=== PATIENT | male | born 1955 | race Caucasian/White ===

== ENCOUNTER 2016-09-27 11:39 | Emergency (ER) | payer OTHER ==
[~2016-09-27] VITALS: Ht 185.4 cm; Wt 200.0 kg
[~2016-09-27 11:39] MED LIST: ACTOS45 MG PO; ALLOPURINOL300 MG PO; COUMADIN,JANTO7.5 MG PO; Cardizem CD,Cartia XT,Tiazac PO; Coumadin,Jantoven PO; DARVOCET-N 1001 EAC1 PO; DIGOXIN250 MCG PO; DILTIAZEM 24HR360 M1 PO; DIOVAN320 MG PO; EFFEXOR XR150 MG PO; ENALAPRIL MALEA10 MG PO; ENALAPRIL MALEA20 M1 PO; FLEXERIL10 MG PO; FLUTICASONE PRO16 GM BOTH NARES; FUROSEMIDE40 MG PO; GABAPENTIN600 MG PO; GLIPIZIDE ER2.5 MG PO; GLIPIZIDE XL5 MG PO; HYDROCHLOROTHIA25 MG PO; Hydrodiuril,Oretic,E PO; LANOXIN,DIGIT0.25 MG PO; LOPRESSOR100 M1; LOPRESSOR50 MG PO; LOVENOX150 MG/1 M SC; LYRICA100 MG PO; LYRICA150 MG PO; Lopressor PO; METFORMIN HCL1000 MG PO; METOPROLOL TAR100 MG PO; MORPHINE SULFAT15 M1 PO; MORPHINE SULFAT15 MG PO; MS Contin,Oramorph S PO; NAPROSYN500 MG PO; OMEPRAZOLE20 M1 PO; OXYCODONE HCL10 MG PO; PACERONE200 M1 PO; PRAVASTATIN SOD40 MG; RANITIDINE HCL150 MG PO; REQUIP1 MG PO; ROPINIROLE HCL1 MG PO; SPIRIVA1 INHALATI IH; SUPARTZ IU; TAZTIA XT180 M1 PO; TAZTIA XT360 MG; TRAMADOL HCL50 MG PO; TRAUMEEL; Ultram PO; VENLAFAXINE ER PO; VENLAFAXINE HC150 M1 PO; VENLAFAXINE HCL75 M3 PO; VITAMIN D1000 UNIT PO; VITAMIN D2000 INTUN PO; VOLTAREN 1% GE100 GM TP; Vasotec PO; WARFARIN SODIU7.5 MG; WARFARIN SODIU7.5 MG PO; XOPENEX HF200 INHALA IH; XOPENEX0.31 MG/3 IH; ZYLOPRIM150 MG PO; oxyCODONE PO
[2016-09-27 12:14] LABS: EOSINOPHIL (%) 1.8 % (0-5); EOSINOPHIL COUNT 0.1 K/uL (0-0.3); HEMATOCRIT 37.4 % (38.0-50.0); IMMATURE GRANULOCYTE (%) 0.4 % (0.0-0.7); INSTRUMENT ABS NEUTROPHIL CT 4.8 K/uL; LYMPHOCYTE COUNT 2.1 K/uL (1.0-2.8); MCH 29.4 PG (29.0-34.0); MCHC 31.3 G/DL (30.0-36.0); MEAN PLAT.VOLUME 9.3 uM^3 (9.0-12.4); MONOCYTE (%) 8.5 % (3-12); MONOCYTE COUNT 0.7 K/uL (0-0.8); NEUTROPHIL (%) 61.7 % (45-76); NEUTROPHIL COUNT 4.8 K/uL (1.8-6.4); PLATELET COUNT 121 K/uL (156-360); RBC DIS.WIDTH-CV 14.8 % (11.8-14.6); RBC DIS.WIDTH-SD 51.3 % (39-53); RED BLOOD COUNT 3.98 M/uL (4.00-5.50); WHITE BLOOD COUNT 7.8 K/uL (4.1-10.2)
[2016-09-27 12:19] LABS: POINT-OF-CARE METER ID UU14100415
[2016-09-27 12:23] LABS: CHLORIDE 103 mEq/L (99-109); POTASSIUM 4.7 mEq/L (3.7-5.4); SODIUM 139 mEq/L (136-147)
[2016-09-27 12:24] LABS: GLUCOSE 113 mg/dL (70-99)
[2016-09-27 12:25] LABS: INTER. NORMALIZED RATIO 1.1; PROTHROMBIN TIME 11.5 (9.2-11.2)
[2016-09-27 12:26] LABS: ANION GAP 10 MEQ/L (2-14)
[2016-09-27 12:28] LABS: GFR ESTIMATE (CALCULATED) > 59 mL/min/
[2016-09-27 12:29] LABS: UREA NITROGEN (BUN) 26 mg/dL (9-23)
[2016-09-27 12:35] LABS: TROP-I INTERPRETATION NEGATIVE; TROPONIN-I 0.02 ng/mL (0.0-0.30)
[2016-09-27 16:38] LABS: TROP-I INTERPRETATION NEGATIVE; TROPONIN-I 0.02 ng/mL (0.0-0.30)
[2016-09-27 17:41] VITALS: BP 131/76
== END 2016-09-27 17:42 | disposition home or self-care (01) ==
LOC: EME 11:39
PROVIDERS: Emergency Medicine
DX: R53.1 Weakness (principal); I48.91 Unspecified atrial fibrillation; E11.9 Type 2 diabetes mellitus without complications; M79.7 Fibromyalgia; J44.9 Chronic obstructive pulmonary disease, unspecified; G89.29 Other chronic pain; E78.5 Hyperlipidemia, unspecified; I10 Essential (primary) hypertension; K21.9 Gastro-esophageal reflux disease without esophagitis; Z87.442 Personal history of urinary calculi; Z87.891 Personal history of nicotine dependence
CPT/HCPCS: 71010; 80048; 80162; 82948; 84484; 85025; 85610; 85730; 93005; 99281; 99285; J7030

== ENCOUNTER 2016-11-23 13:41 | Inpatient (IN) | payer OTHER ==
[~2016-11-23] VITALS: Ht 185.4 cm; Wt 156.8 kg
[2016-11-23 14:25] LABS: HEMATOCRIT ND % (38.0-50.0); MCV ND FL (86-99); RED BLOOD COUNT ND M/uL (4.00-5.50); WHITE BLOOD COUNT ND K/uL (4.1-10.2)
[2016-11-23 14:26] LABS: MCH ND PG (29.0-34.0); MCHC ND G/DL (30.0-36.0); MEAN PLAT.VOLUME ND uM^3 (9.0-12.4); NRBC (%) ND /100 WBC (0-0); PLATELET COUNT ND K/uL (156-360); RBC DIS.WIDTH-CV ND % (11.8-14.6); RBC DIS.WIDTH-SD ND % (39-53)
[2016-11-23 14:28] LABS: CHLORIDE 95 mEq/L (99-109); POTASSIUM 5.2 mEq/L (3.7-5.4); SODIUM 131 mEq/L (136-147)
[2016-11-23 14:30] LABS: GLUCOSE 125 mg/dL (70-99)
[2016-11-23 14:32] LABS: ANION GAP 6 MEQ/L (2-14)
[2016-11-23 14:34] LABS: GFR ESTIMATE (CALCULATED) > 59 mL/min/
[2016-11-23 14:35] LABS: UREA NITROGEN (BUN) 21 mg/dL (9-23)
[2016-11-23 14:41] LABS: TROP-I INTERPRETATION NEGATIVE; TROPONIN-I 0.02 ng/mL (0.0-0.30)
[2016-11-23 16:08] LABS: HEMATOCRIT 38.8 % (38.0-50.0); MCH 28.8 PG (29.0-34.0); MCHC 30.9 G/DL (30.0-36.0); MEAN PLAT.VOLUME 9.6 uM^3 (9.0-12.4); PLATELET COUNT 87 K/uL (156-360); RBC DIS.WIDTH-CV 14.6 % (11.8-14.6); RBC DIS.WIDTH-SD 49.9 % (39-53); RED BLOOD COUNT 4.17 M/uL (4.00-5.50); WHITE BLOOD COUNT 6.7 K/uL (4.1-10.2)
[2016-11-23 16:22] LABS: INTER. NORMALIZED RATIO 1.2; PROTHROMBIN TIME 11.8 (9.2-11.2); PTT 29.4 (25-32)
[2016-11-23 17:01] LABS: BASE EXCESS 7.1 mEq/L (-3 to +3); METHEMOGLOBIN 0.6 % (0-1.5); PO2 77 mm Hg (80-100); pH 7.31 (7.35-7.45)
[2016-11-23 17:02] LABS: BICARBONATE 35.7 mEq/L (22-26); PCO2 71 mm Hg (35-45); SITE LR
[2016-11-23] MEDS ORDERED: LYRICA75 MG PO (17:02)
[2016-11-23 17:03] LABS: COMMENTS - BLOOD GASES A+C+; DEVICE NC; O2 FLOW 4 L/MIN
[2016-11-23] MEDS ORDERED: CARDIZEM CD240 MG PO (17:04)
[2016-11-23] MEDS ORDERED: CARDIZEM CD120 M1 PO (17:04)
[2016-11-23] MEDS ORDERED: FLONASE16 G1 BOTH NARES (17:05)
[2016-11-23] MEDS ORDERED: METOPROLOL TART50 MG PO ×2 (17:06→17:07)
[2016-11-23] MEDS ORDERED: VENLAFAXINE HCL75 M3 PO (17:08)
[2016-11-23] MEDS ORDERED: ELIQUIS5 MG PO (17:08)
[2016-11-23] MEDS ORDERED: VITAMIN D2000 UNI1 PO (17:09)
[2016-11-23] MEDS ORDERED: OXYCODONE HCL15 MG PO (17:09)
[2016-11-23] MEDS ORDERED: TIZANIDINE HCL4 MG PO (17:13)
[2016-11-23 20:22] VITALS: BP 146/76
[2016-11-23 23:46] VITALS: BP 177/88
[2016-11-24 08:12] VITALS: BP 184/76
[2016-11-24 09:21] LABS: HEMATOCRIT 37.6 % (38.0-50.0); MCH 29.9 PG (29.0-34.0); MCHC 32.7 G/DL (30.0-36.0); MCV 91.5 FL (86-99); MEAN PLAT.VOLUME 10.6 uM^3 (9.0-12.4); PLATELET COUNT 107 K/uL (156-360); RBC DIS.WIDTH-CV 14.3 % (11.8-14.6); RBC DIS.WIDTH-SD 48.1 % (39-53); RED BLOOD COUNT 4.11 M/uL (4.00-5.50); WHITE BLOOD COUNT 4.4 K/uL (4.1-10.2)
[2016-11-24 09:34] LABS: ANION GAP 8 MEQ/L (2-14); CHLORIDE 95 MEQ/L (99-109); GFR ESTIMATE (CALCULATED) > 59 mL/min/; GLUCOSE 195 mg/dL (70-99); POTASSIUM 4.5 MEQ/L (3.7-5.4); SAMPLE HEMOLYSIS CHECK 0; SAMPLE ICTERIC CHECK 0; SAMPLE LIPEMIA CHECK 0; SODIUM 134 MEQ/L (136-147); UREA NITROGEN (BUN) 24 mg/dL (9-23)
[2016-11-24 12:17] VITALS: BP 149/90
[2016-11-24 14:38] LABS: Estimated Average Glucose 151 mg/dL (70-123)
[2016-11-24 14:54] LABS: HEMOGLOBIN A1c (GLYCOHEMOGLOB) 6.9 % HGB (Below 5.7)
[2016-11-24 15:48] VITALS: BP 169/79
[2016-11-24 19:46] VITALS: BP 141/91
[2016-11-25 00:17] VITALS: BP 136/79
[2016-11-25 03:56] VITALS: BP 132/83
[2016-11-25 07:54] VITALS: BP 157/78
[2016-11-25 07:54] LABS: POINT-OF-CARE METER ID UU13113717
[2016-11-25 11:18] VITALS: BP 148/74
[2016-11-25 15:52] VITALS: BP 176/78
[2016-11-26 00:04] VITALS: BP 130/60
[2016-11-26 07:43] LABS: HEMATOCRIT 37.6 % (38.0-50.0); MCH 29.8 PG (29.0-34.0); MCHC 32.4 G/DL (30.0-36.0); MCV 91.7 FL (86-99); MEAN PLAT.VOLUME 11.6 uM^3 (9.0-12.4); RBC DIS.WIDTH-CV 14.6 % (11.8-14.6); WHITE BLOOD COUNT 9.2 K/uL (4.1-10.2)
[2016-11-26 07:45] LABS: PLATELET COUNT 142 K/uL (156-360)
[2016-11-26 07:51] VITALS: BP 145/72
[2016-11-26 07:52] LABS: ANION GAP 8 MEQ/L (2-14); CHLORIDE 95 MEQ/L (99-109); GFR ESTIMATE (CALCULATED) > 59 mL/min/; GLUCOSE 251 mg/dL (70-99); POTASSIUM 4.9 MEQ/L (3.7-5.4); SAMPLE HEMOLYSIS CHECK 0; SAMPLE ICTERIC CHECK 0; SAMPLE LIPEMIA CHECK 0; SODIUM 134 MEQ/L (136-147)
[2016-11-26 07:54] LABS: UREA NITROGEN (BUN) 41 mg/dL (9-23)
[2016-11-26] MEDS ORDERED: ADVAIR HFA120 INHALA IH (09:40)
[2016-11-26] MEDS ORDERED: PREDNISONE10 MG PO (09:42)
== END 2016-11-26 11:49 | disposition home or self-care (01) | DRG 189 ==
LOC: EME 13:41 → 5SOUTH 16:17 → EDOF 16:17 → 5SOUTH 20:06
PROVIDERS: Emergency Medicine; Hospitalist; Internal Medicine; Nurse Practitioner Adult Health; Physician Assistant Medical
DX: J96.21 Acute and chronic respiratory failure with hypoxia (principal); J96.22 Acute and chronic respiratory failure with hypercapnia; J44.0 Chronic obstructive pulmonary disease with (acute) lower respiratory infection; J20.9 Acute bronchitis, unspecified; J44.1 Chronic obstructive pulmonary disease with (acute) exacerbation; Z99.81 Dependence on supplemental oxygen; I11.0 Hypertensive heart disease with heart failure; I50.22 Chronic systolic (congestive) heart failure; I25.5 Ischemic cardiomyopathy; I42.0 Dilated cardiomyopathy; I48.2 Chronic atrial fibrillation; E11.65 Type 2 diabetes mellitus with hyperglycemia; G47.33 Obstructive sleep apnea (adult) (pediatric); G89.29 Other chronic pain; M79.7 Fibromyalgia; M10.9 Gout, unspecified; K21.9 Gastro-esophageal reflux disease without esophagitis; E66.01 Morbid (severe) obesity due to excess calories; Z68.43 Body mass index [BMI] 50.0-59.9, adult; E78.5 Hyperlipidemia, unspecified; F32.9 Major depressive disorder, single episode, unspecified; Z91.19 Patient's noncompliance with other medical treatment and regimen; Z79.01 Long term (current) use of anticoagulants; Z87.891 Personal history of nicotine dependence; Z79.4 Long term (current) use of insulin
CPT/HCPCS: 36600; 71010; 80048; 82803; 82948; 83036; 84484; 85014; 85018; 85027; 85610; 85730; 93005; 94640; 94640 76; 94644; 94799; 99202; 99281; 99285; J1815; J1940; J2920; J2930; J7512

== ENCOUNTER 2017-01-17 19:03 | Inpatient (IN) | payer OTHER ==
[~2017-01-17] VITALS: Ht 182.9 cm; Wt 200.3 kg
[~2017-01-17 19:03] MED LIST changes: +ADVAIR HFA120 INHALA IH; +CARDIZEM CD120 M1 PO; +CARDIZEM CD240 MG PO; +ELIQUIS5 MG PO; +FLONASE16 G1 BOTH NARES; +LYRICA75 MG PO; +METOPROLOL TART50 MG PO; +PREDNISONE10 MG PO; +TIZANIDINE HCL4 MG PO; +VITAMIN D2000 UNI1 PO
[2017-01-17 20:44] LABS: HEMATOCRIT 36.7 % (38.0-50.0); MCH 28.3 PG (29.0-34.0); MCHC 31.3 G/DL (30.0-36.0); MCV 90.4 FL (86-99); MEAN PLAT.VOLUME 9.6 uM^3 (9.0-12.4); PLATELET COUNT 117 K/uL (156-360); RBC DIS.WIDTH-CV 14.6 % (11.8-14.6); RBC DIS.WIDTH-SD 48.7 % (39-53); RED BLOOD COUNT 4.06 M/uL (4.00-5.50); WHITE BLOOD COUNT 5.9 K/uL (4.1-10.2)
[2017-01-17 20:55] LABS: CARBON DIOXIDE (BICARBONATE) 39.3 MEQ/L (20-31); CHLORIDE 101 mEq/L (99-109); POTASSIUM 4.3 mEq/L (3.7-5.4); SODIUM 142 mEq/L (136-147)
[2017-01-17 20:57] LABS: GLUCOSE 113 mg/dL (70-99)
[2017-01-17 20:58] LABS: ANION GAP 8 MEQ/L (2-14)
[2017-01-17 21:01] LABS: GFR ESTIMATE (CALCULATED) > 59 mL/min/
[2017-01-17 21:02] LABS: UREA NITROGEN (BUN) 16 mg/dL (9-23)
[2017-01-17 21:07] LABS: TROP-I INTERPRETATION NEGATIVE; TROPONIN-I 0.03 ng/mL (0.0-0.30)
[2017-01-17] MEDS ORDERED: AMARYL2 MG PO (22:22)
[2017-01-17] MEDS ORDERED: MIRTAZAPINE7.5 MG PO (22:23)
[2017-01-17] MEDS ORDERED: JANUVIA100 MG PO (22:24)
[2017-01-17] MEDS ORDERED: DUONEB 2.5-0.5 M3 ML AEROSOL (22:25)
[2017-01-17] MEDS ORDERED: LANTUS 3 M100 UNITS1 SC ×2 (22:27)
[2017-01-17] MEDS ORDERED: PRAVACHOL20 MG PO (22:28)
[2017-01-17] MEDS ORDERED: BENGAY GREASEL113 GM TP (22:30)
[2017-01-17 23:30] VITALS: BP 166/83
[2017-01-17 23:39] LABS: DIGOXIN 0.6 ng/mL (0.8-2.0)
[2017-01-18] VITALS (7 sets, daily range): BP systolic 97–144; BP diastolic 55–91
[2017-01-18 04:22] LABS: EOSINOPHIL (%) 1.9 % (0-5); EOSINOPHIL COUNT 0.1 K/uL (0-0.3); HEMATOCRIT 36.3 % (38.0-50.0); IMMATURE GRANULOCYTE (%) 0.6 % (0.0-0.7); INSTRUMENT ABS NEUTROPHIL CT 3.6 K/uL; LYMPHOCYTE COUNT 1.7 K/uL (1.0-2.8); MCH 28.2 PG (29.0-34.0); MCHC 30.6 G/DL (30.0-36.0); MCV 92.1 FL (86-99); MEAN PLAT.VOLUME 9.9 uM^3 (9.0-12.4); MONOCYTE (%) 12.1 % (3-12); MONOCYTE COUNT 0.8 K/uL (0-0.8); NEUTROPHIL (%) 58.2 % (45-76); NEUTROPHIL COUNT 3.6 K/uL (1.8-6.4); PLATELET COUNT 116 K/uL (156-360); RBC DIS.WIDTH-CV 14.7 % (11.8-14.6); RBC DIS.WIDTH-SD 49.8 % (39-53); RED BLOOD COUNT 3.94 M/uL (4.00-5.50); WHITE BLOOD COUNT 6.2 K/uL (4.1-10.2)
[2017-01-18 04:43] LABS: CHLORIDE 102 mEq/L (99-109); POTASSIUM 4.7 mEq/L (3.7-5.4); SODIUM 143 mEq/L (136-147)
[2017-01-18 04:45] LABS: GLUCOSE 107 mg/dL (70-99)
[2017-01-18 04:46] LABS: ANION GAP 6 MEQ/L (2-14)
[2017-01-18 04:47] LABS: TOTAL BILIRUBIN 0.5 mg/dL (0.0-1.0)
[2017-01-18 04:48] LABS: ALKALINE PHOSPHATASE 111 IU/L (3-129)
[2017-01-18 04:49] LABS: GFR ESTIMATE (CALCULATED) > 59 mL/min/; TROP-I INTERPRETATION NEGATIVE; TROPONIN-I < 0.01 ng/mL (0.0-0.30)
[2017-01-18 04:50] LABS: UREA NITROGEN (BUN) 16 mg/dL (9-23)
[2017-01-18 07:35] LABS: POINT-OF-CARE METER ID UU13113803
[2017-01-18 10:32] LABS: TROP-I INTERPRETATION NEGATIVE; TROPONIN-I < 0.01 ng/mL (0.0-0.30)
[2017-01-18 11:17] LABS: POINT-OF-CARE METER ID UU13113803
[2017-01-18 16:36] LABS: POINT-OF-CARE METER ID UU13113803
[2017-01-19 04:40] VITALS: BP 117/62
[2017-01-19 05:44] LABS: EOSINOPHIL (%) 3.8 % (0-5); EOSINOPHIL COUNT 0.2 K/uL (0-0.3); HEMATOCRIT 37.1 % (38.0-50.0); IMMATURE GRANULOCYTE (%) 0.3 % (0.0-0.7); INSTRUMENT ABS NEUTROPHIL CT 3.8 K/uL; LYMPHOCYTE COUNT 1.7 K/uL (1.0-2.8); MCH 28.2 PG (29.0-34.0); MCHC 30.7 G/DL (30.0-36.0); MCV 91.8 FL (86-99); MEAN PLAT.VOLUME 9.6 uM^3 (9.0-12.4); MONOCYTE (%) 8.6 % (3-12); MONOCYTE COUNT 0.6 K/uL (0-0.8); NEUTROPHIL (%) 59.4 % (45-76); NEUTROPHIL COUNT 3.8 K/uL (1.8-6.4); PLATELET COUNT 121 K/uL (156-360); RBC DIS.WIDTH-CV 14.6 % (11.8-14.6); RBC DIS.WIDTH-SD 49.1 % (39-53); RED BLOOD COUNT 4.04 M/uL (4.00-5.50); WHITE BLOOD COUNT 6.4 K/uL (4.1-10.2)
[2017-01-19 06:05] LABS: ALKALINE PHOSPHATASE 94 IU/L (3-129); ANION GAP 5 MEQ/L (2-14); CHLORIDE 96 MEQ/L (99-109); GFR ESTIMATE (CALCULATED) > 59 mL/min/; GLUCOSE 89 mg/dL (70-99); POTASSIUM 4.5 MEQ/L (3.7-5.4); SAMPLE HEMOLYSIS CHECK 1; SAMPLE ICTERIC CHECK 0; SAMPLE LIPEMIA CHECK 0; SODIUM 141 MEQ/L (136-147); TOTAL BILIRUBIN 0.6 MG/DL (0.0-1.0); UREA NITROGEN (BUN) 18 mg/dL (9-23)
[2017-01-19 07:05] LABS: Estimated Average Glucose 160 mg/dL (70-123); HEMOGLOBIN A1c (GLYCOHEMOGLOB) 7.2 % HGB (Below 5.7)
[2017-01-19 07:47] LABS: POINT-OF-CARE METER ID UU13113698
[2017-01-19 08:45] VITALS: BP 143/91
[2017-01-19 15:23] VITALS: BP 102/59
[2017-01-19 16:34] LABS: POINT-OF-CARE METER ID UU13113781
[2017-01-19 19:20] VITALS: BP 156/89
[2017-01-19 20:50] LABS: POINT-OF-CARE METER ID UU13113781
[2017-01-20 00:23] VITALS: BP 121/70
[2017-01-20 06:55] LABS: EOSINOPHIL (%) 0.5 % (0-5); HEMATOCRIT 36.6 % (38.0-50.0); IMMATURE GRANULOCYTE (%) 0.4 % (0.0-0.7); INSTRUMENT ABS NEUTROPHIL CT 3.8 K/uL; LYMPHOCYTE COUNT 1.3 K/uL (1.0-2.8); MCHC 31.4 G/DL (30.0-36.0); MCV 89.3 FL (86-99); MEAN PLAT.VOLUME 9.7 uM^3 (9.0-12.4); MONOCYTE (%) 7.2 % (3-12); MONOCYTE COUNT 0.4 K/uL (0-0.8); NEUTROPHIL (%) 67.8 % (45-76); NEUTROPHIL COUNT 3.8 K/uL (1.8-6.4); PLATELET COUNT 124 K/uL (156-360); RBC DIS.WIDTH-CV 14.3 % (11.8-14.6); RBC DIS.WIDTH-SD 46.3 % (39-53); WHITE BLOOD COUNT 5.6 K/uL (4.1-10.2)
[2017-01-20 07:18] LABS: ALKALINE PHOSPHATASE 94 IU/L (3-129); ANION GAP 3 MEQ/L (2-14); CHLORIDE 96 MEQ/L (99-109); GFR ESTIMATE (CALCULATED) > 59 mL/min/; GLUCOSE 128 mg/dL (70-99); POTASSIUM 4.3 MEQ/L (3.7-5.4); SAMPLE HEMOLYSIS CHECK 0; SAMPLE ICTERIC CHECK 0; SAMPLE LIPEMIA CHECK 0; SODIUM 139 MEQ/L (136-147); TOTAL BILIRUBIN 0.6 MG/DL (0.0-1.0); UREA NITROGEN (BUN) 19 mg/dL (9-23)
[2017-01-20 07:20] VITALS: BP 140/84
[2017-01-20 12:32] VITALS: BP 136/87
[2017-01-20 16:22] VITALS: BP 164/92
[2017-01-20 23:44] VITALS: BP 111/56
[2017-01-21 05:42] VITALS: BP 127/75
[2017-01-21 07:10] VITALS: BP 150/71
[2017-01-21 07:16] LABS: EOSINOPHIL (%) 1.1 % (0-5); EOSINOPHIL COUNT 0.1 K/uL (0-0.3); HEMATOCRIT 36.5 % (38.0-50.0); IMMATURE GRANULOCYTE (%) 0.2 % (0.0-0.7); INSTRUMENT ABS NEUTROPHIL CT 3.3 K/uL; LYMPHOCYTE COUNT 1.7 K/uL (1.0-2.8); MCH 28.1 PG (29.0-34.0); MCHC 31.2 G/DL (30.0-36.0); MCV 89.9 FL (86-99); MEAN PLAT.VOLUME 9.5 uM^3 (9.0-12.4); MONOCYTE (%) 7.4 % (3-12); MONOCYTE COUNT 0.4 K/uL (0-0.8); NEUTROPHIL (%) 60.1 % (45-76); NEUTROPHIL COUNT 3.3 K/uL (1.8-6.4); PLATELET COUNT 115 K/uL (156-360); RBC DIS.WIDTH-CV 14.3 % (11.8-14.6); RED BLOOD COUNT 4.06 M/uL (4.00-5.50); WHITE BLOOD COUNT 5.4 K/uL (4.1-10.2)
[2017-01-21 07:48] LABS: ANION GAP 3 MEQ/L (2-14); CHLORIDE 99 MEQ/L (99-109); GFR ESTIMATE (CALCULATED) > 59 mL/min/; GLUCOSE 86 mg/dL (70-99); POTASSIUM 4.4 MEQ/L (3.7-5.4); SAMPLE HEMOLYSIS CHECK 0; SAMPLE ICTERIC CHECK 0; SAMPLE LIPEMIA CHECK 0; SODIUM 141 MEQ/L (136-147); UREA NITROGEN (BUN) 22 mg/dL (9-23)
[2017-01-21] MEDS ORDERED: CEFTIN500 MG PO (10:54)
[2017-01-21] MEDS ORDERED: PREDNISONE10 MG PO (10:54)
[2017-01-21 11:55] VITALS: BP 156/74
[2017-01-21 15:03] VITALS: BP 164/90
[2017-01-21 16:16] VITALS: BP 152/80
== END 2017-01-21 16:59 | disposition home or self-care (01) | DRG 190 ==
LOC: EME 19:03 → EDOF 22:14 → 4EAST 22:14 → ENRESERV 22:17 → 4EAST 23:14 → ENPENDDIS 01-21 → 4EAST 01-21 16:59
PROVIDERS: Emergency Medicine; Hospitalist; Internal Medicine
DX: J44.0 Chronic obstructive pulmonary disease with (acute) lower respiratory infection (principal); J18.9 Pneumonia, unspecified organism; J44.1 Chronic obstructive pulmonary disease with (acute) exacerbation; J96.11 Chronic respiratory failure with hypoxia; D69.6 Thrombocytopenia, unspecified; I11.0 Hypertensive heart disease with heart failure; I50.9 Heart failure, unspecified; D64.9 Anemia, unspecified; E11.9 Type 2 diabetes mellitus without complications; E78.5 Hyperlipidemia, unspecified; G47.33 Obstructive sleep apnea (adult) (pediatric); I25.10 Atherosclerotic heart disease of native coronary artery without angina pectoris; I48.2 Chronic atrial fibrillation; I48.92 Unspecified atrial flutter; J06.9 Acute upper respiratory infection, unspecified; K21.9 Gastro-esophageal reflux disease without esophagitis; M10.9 Gout, unspecified; M79.7 Fibromyalgia; F32.9 Major depressive disorder, single episode, unspecified; I45.10 Unspecified right bundle-branch block; E66.01 Morbid (severe) obesity due to excess calories; Z79.4 Long term (current) use of insulin; Z79.01 Long term (current) use of anticoagulants; I25.2 Old myocardial infarction; Z87.891 Personal history of nicotine dependence; Z99.81 Dependence on supplemental oxygen; Z68.31 Body mass index [BMI] 31.0-31.9, adult
CPT/HCPCS: 71010; 71020; 80048; 80053; 80162; 82803; 82948; 83036; 83605; 83880; 84484; 85025; 85027; 87040; 87070; 87205; 87449; 93005; 93306; 94640; 94640 76; 94799; 99202; 99281; 99285; J0456; J0696; J1815; J1940; J1956; J7050; J7512

== ENCOUNTER 2017-03-14 14:10 | Inpatient (IN) | payer OTHER ==
[~2017-03-14] VITALS: Ht 185.4 cm; Wt 264.7 kg
[~2017-03-14 14:10] MED LIST changes: +AMARYL2 MG PO; +BENGAY GREASEL113 GM TP; +CEFTIN500 MG PO; +DUONEB 2.5-0.5 M3 ML AEROSOL; +JANUVIA100 MG PO; +LANTUS 3 M100 UNITS1 SC; +MIRTAZAPINE7.5 MG PO; +PRAVACHOL20 MG PO
[2017-03-14 15:06] LABS: HEMATOCRIT 36.6 % (38.0-50.0); MCH 27.8 PG (29.0-34.0); MCHC 31.1 G/DL (30.0-36.0); MCV 89.3 FL (86-99); MEAN PLAT.VOLUME 9.5 uM^3 (9.0-12.4); PLATELET COUNT 109 K/uL (156-360); RBC DIS.WIDTH-CV 15.6 % (11.8-14.6); RBC DIS.WIDTH-SD 50.7 % (39-53)
[2017-03-14 15:15] LABS: CHLORIDE 97 mEq/L (99-109); POTASSIUM 4.8 mEq/L (3.7-5.4); SODIUM 136 mEq/L (136-147)
[2017-03-14 15:16] LABS: GLUCOSE 184 mg/dL (70-99)
[2017-03-14 15:18] LABS: ANION GAP 7 MEQ/L (2-14)
[2017-03-14 15:20] LABS: GFR ESTIMATE (CALCULATED) 55 mL/min/
[2017-03-14 15:21] LABS: UREA NITROGEN (BUN) 18 mg/dL (9-23)
[2017-03-14 15:26] LABS: TROP-I INTERPRETATION NEGATIVE; TROPONIN-I 0.04 ng/mL (0.0-0.30)
[2017-03-14 18:55] LABS: BASE EXCESS 8.9 mEq/L (-3 to +3); BICARBONATE 36.7 mEq/L (22-26); CARBOXY HGB 2.6 % (0-5); COMMENTS - BLOOD GASES C+; PCO2 65 mm Hg (35-45); PO2 56 mm Hg (80-100); SITE RR; pH 7.36 (7.35-7.45)
[2017-03-14 18:56] LABS: DEVICE NC; O2 FLOW 5 L/MIN; TOTAL RESP RATE 22 resp/min
[2017-03-14 19:58] LABS: TOTAL BILIRUBIN 0.8 mg/dL (0.0-1.0)
[2017-03-14 19:59] LABS: ALKALINE PHOSPHATASE 104 IU/L (3-129)
[2017-03-14 20:01] LABS: DIRECT BILIRUBIN 0.4 mg/dL (0.0-0.3)
[2017-03-14 20:02] LABS: DIGOXIN 1.8 ng/mL (0.8-2.0)
[2017-03-14] MEDS ORDERED: ADVAIR HFA120 INHALA IH (20:34)
[2017-03-14 21:15] VITALS: BP 143/77
[2017-03-14 21:50] LABS: POINT-OF-CARE METER ID UU14314088
[2017-03-14 22:38] LABS: ADD MIUA? YES; BILIRUBIN NEGATIVE; BLOOD SMALL; COLOR STRAW ((YELLOW)); GLUCOSE (STRIP) NEGATIVE; KETONES NEGATIVE; LEUKOCYTES NEGATIVE; NITRITE NEGATIVE; PROTEIN (STRIP) NEGATIVE; SPECIFIC GRAVITY 1.004 (1.000-1.030); UROBILINOGEN 0.2 MG/DL (0.2-1.0)
[2017-03-14 22:44] LABS: BACTERIA RARE /HPF; EPITHELIAL CELLS RARE /HPF; MUCUS NONE SEEN /LPF; UCUL ADDED? NO; WHITE BLOOD CELLS 0-5 /HPF (0-5)
[2017-03-14 23:28] VITALS: BP 137/63
[2017-03-14 23:37] VITALS: BP 137/63
[2017-03-15] VITALS (7 sets, daily range): BP systolic 130–211; BP diastolic 58–88
[2017-03-15 00:44] LABS: POINT-OF-CARE METER ID UU14314088
[2017-03-15 00:56] LABS: BASE EXCESS 11.7 mEq/L (-3 to +3); BICARBONATE 39.3 mEq/L (22-26); CARBOXY HGB 2.4 % (0-5); COMMENTS - BLOOD GASES C+A+; DEVICE HFNC; METHEMOGLOBIN 1.5 % (0-1.5); O2 FLOW 15 L/MIN; PCO2 65 mm Hg (35-45); PO2 66 mm Hg (80-100); SITE RR; TOTAL RESP RATE 19 resp/min; pH 7.39 (7.35-7.45)
[2017-03-15 03:23] LABS: TROP-I INTERPRETATION NEGATIVE; TROPONIN-I 0.02 ng/mL (0.0-0.30)
[2017-03-15 05:59] LABS: HEMATOCRIT 38.1 % (38.0-50.0); MCH 27.5 PG (29.0-34.0); MCHC 30.7 G/DL (30.0-36.0); MCV 89.6 FL (86-99); MEAN PLAT.VOLUME 10.2 uM^3 (9.0-12.4); PLATELET COUNT 121 K/uL (156-360); RBC DIS.WIDTH-CV 15.7 % (11.8-14.6); RBC DIS.WIDTH-SD 50.6 % (39-53); RED BLOOD COUNT 4.25 M/uL (4.00-5.50); WHITE BLOOD COUNT 7.1 K/uL (4.1-10.2)
[2017-03-15 06:22] LABS: ANION GAP 6 MEQ/L (2-14); CHLORIDE 93 MEQ/L (99-109); GFR ESTIMATE (CALCULATED) > 59 mL/min/; POTASSIUM 4.6 MEQ/L (3.7-5.4); SAMPLE HEMOLYSIS CHECK 0; SAMPLE ICTERIC CHECK 0; SAMPLE LIPEMIA CHECK 0; SODIUM 133 MEQ/L (136-147); UREA NITROGEN (BUN) 21 mg/dL (9-23)
[2017-03-15 06:23] LABS: GLUCOSE 318 mg/dL (70-99)
[2017-03-15 07:47] LABS: POINT-OF-CARE METER ID UU14174216
[2017-03-15 11:37] LABS: POINT-OF-CARE METER ID UU14314088
[2017-03-15 16:27] LABS: POINT-OF-CARE METER ID UU14314088
[2017-03-15 21:29] LABS: POINT-OF-CARE METER ID UU13113781
[2017-03-16 04:00] VITALS: BP 123/60
[2017-03-16 05:32] LABS: HEMATOCRIT 36.4 % (38.0-50.0); MCH 28.3 PG (29.0-34.0); MCHC 31.6 G/DL (30.0-36.0); MCV 89.7 FL (86-99); MEAN PLAT.VOLUME 10.3 uM^3 (9.0-12.4); PLATELET COUNT 110 K/uL (156-360); RBC DIS.WIDTH-CV 15.9 % (11.8-14.6); RBC DIS.WIDTH-SD 51.8 % (39-53); RED BLOOD COUNT 4.06 M/uL (4.00-5.50)
[2017-03-16 05:55] LABS: ANION GAP 8 MEQ/L (2-14); CHLORIDE 93 MEQ/L (99-109); GFR ESTIMATE (CALCULATED) > 59 mL/min/; GLUCOSE 308 mg/dL (70-99); POTASSIUM 4.9 MEQ/L (3.7-5.4); SAMPLE HEMOLYSIS CHECK 0; SAMPLE ICTERIC CHECK 0; SAMPLE LIPEMIA CHECK 0; SODIUM 135 MEQ/L (136-147); UREA NITROGEN (BUN) 26 mg/dL (9-23)
[2017-03-16 07:30] VITALS: BP 177/75
[2017-03-16 07:57] LABS: POINT-OF-CARE METER ID UU14174216
[2017-03-16 11:15] VITALS: BP 171/74
[2017-03-16 11:55] LABS: POINT-OF-CARE METER ID UU14314088
[2017-03-16 15:30] VITALS: BP 143/63
[2017-03-16 16:27] LABS: POINT-OF-CARE METER ID UU14314088
[2017-03-16 20:41] VITALS: BP 159/73
[2017-03-16 20:45] LABS: POINT-OF-CARE METER ID UU14174216
[2017-03-17 00:21] VITALS: BP 145/67
[2017-03-17 05:07] VITALS: BP 153/73
[2017-03-17 05:28] LABS: CHLORIDE 95 mEq/L (99-109); POTASSIUM 5.2 mEq/L (3.7-5.4); SODIUM 135 mEq/L (136-147)
[2017-03-17 05:29] LABS: GLUCOSE 360 mg/dL (70-99)
[2017-03-17 05:30] LABS: ANION GAP 10 MEQ/L (2-14)
[2017-03-17 05:32] LABS: GFR ESTIMATE (CALCULATED) > 59 mL/min/
[2017-03-17 05:33] LABS: UREA NITROGEN (BUN) 32 mg/dL (9-23)
[2017-03-17 05:45] LABS: MCH 28.1 PG (29.0-34.0); MCHC 31.4 G/DL (30.0-36.0); MCV 89.6 FL (86-99); MEAN PLAT.VOLUME 10.5 uM^3 (9.0-12.4); PLATELET COUNT 109 K/uL (156-360); RBC DIS.WIDTH-CV 15.9 % (11.8-14.6); RBC DIS.WIDTH-SD 51.1 % (39-53); RED BLOOD COUNT 4.13 M/uL (4.00-5.50); WHITE BLOOD COUNT 6.7 K/uL (4.1-10.2)
[2017-03-17 07:56] LABS: POINT-OF-CARE METER ID UU14174216
[2017-03-17 09:00] VITALS: BP 121/55
[2017-03-17 12:00] VITALS: BP 130/70
[2017-03-17 12:06] LABS: POINT-OF-CARE METER ID UU14174216
[2017-03-17 16:33] LABS: POINT-OF-CARE METER ID UU14174216
[2017-03-17] MEDS ORDERED: DILTIAZEM 24HR180 MG PO (16:40)
[2017-03-17] MEDS ORDERED: LASIX40 MG PO (16:43)
[2017-03-17 17:35] VITALS: BP 146/70
== END 2017-03-17 18:44 | disposition home or self-care (01) | DRG 208 ==
LOC: EME 14:10 → EDOF 19:02 → 4EAST 19:02 → ENRESERV 19:03 → 4EAST 21:10 → CANRESERV 03-16 15:57 → ENRESERV 03-16 15:57 → 4EAST 03-17 18:44
PROVIDERS: Emergency Medicine; Hospitalist; Internal Medicine
PROC: 5A1935Z Respiratory Ventilation, Less than 24 Consecutive Hours (ICD-10-PCS; principal; 2017-03-16)
DX: J96.21 Acute and chronic respiratory failure with hypoxia (principal); I50.23 Acute on chronic systolic (congestive) heart failure; J44.1 Chronic obstructive pulmonary disease with (acute) exacerbation; Z68.41 Body mass index [BMI] 40.0-44.9, adult; E87.2 Acidosis; I48.92 Unspecified atrial flutter; I11.0 Hypertensive heart disease with heart failure; I27.20 Pulmonary hypertension, unspecified; I48.2 Chronic atrial fibrillation; I42.0 Dilated cardiomyopathy; R00.1 Bradycardia, unspecified; I25.5 Ischemic cardiomyopathy; Z99.81 Dependence on supplemental oxygen; K21.9 Gastro-esophageal reflux disease without esophagitis; I45.10 Unspecified right bundle-branch block; E78.5 Hyperlipidemia, unspecified; G47.33 Obstructive sleep apnea (adult) (pediatric); I89.0 Lymphedema, not elsewhere classified; I35.0 Nonrheumatic aortic (valve) stenosis; D64.9 Anemia, unspecified; J96.22 Acute and chronic respiratory failure with hypercapnia; E11.9 Type 2 diabetes mellitus without complications; E66.01 Morbid (severe) obesity due to excess calories; Z87.891 Personal history of nicotine dependence; Z83.3 Family history of diabetes mellitus; Z82.5 Family history of asthma and other chronic lower respiratory diseases; Z79.01 Long term (current) use of anticoagulants; Z80.3 Family history of malignant neoplasm of breast; I25.2 Old myocardial infarction; Z87.442 Personal history of urinary calculi; Z79.4 Long term (current) use of insulin; Z23 Encounter for immunization; Z91.19 Patient's noncompliance with other medical treatment and regimen
CPT/HCPCS: 36600; 71010; 80048; 80076; 80162; 81003; 82140; 82803; 82948; 83880; 84484; 85027; 85379; 87070; 87205; 90686; 93005; 94010; 94640; 94640 76; 94660; 94760; 94799; 99202; 99281; 99285; J0360; J0696; J1815; J1940; J2920; J2930; J7050

== ENCOUNTER 2017-04-19 18:30 | Inpatient (IN) | payer OTHER ==
[~2017-04-19] VITALS: Ht 185.4 cm; Wt 224.7 kg
[~2017-04-19 18:30] MED LIST changes: +DILTIAZEM 24HR180 MG PO; +LASIX40 MG PO; -LYRICA75 MG PO; -MIRTAZAPINE7.5 MG PO; +REMERON15 M2 PO; +ROXICODONE15 MG PO
[2017-04-19 18:58] LABS: HEMATOCRIT 37.1 % (38.0-50.0); MCH 26.4 PG (29.0-34.0); MCHC 29.6 G/DL (30.0-36.0); MCV 89.2 FL (86-99); PLATELET COUNT 132 K/uL (156-360); RBC DIS.WIDTH-CV 16.6 % (11.8-14.6); RBC DIS.WIDTH-SD 53.9 % (39-53); RED BLOOD COUNT 4.16 M/uL (4.00-5.50); WHITE BLOOD COUNT 8.5 K/uL (4.1-10.2)
[2017-04-19 19:05] LABS: INTER. NORMALIZED RATIO 1.4; PROTHROMBIN TIME 15.8 SEC (10.2-12.9)
[2017-04-19 19:07] LABS: PTT 31.7 SEC (25-37)
[2017-04-19 19:08] LABS: CHLORIDE 96 mEq/L (99-109); POTASSIUM 5.6 mEq/L (3.7-5.4); SODIUM 138 mEq/L (136-147)
[2017-04-19 19:10] LABS: GLUCOSE 103 mg/dL (70-99)
[2017-04-19 19:11] LABS: ANION GAP 11 MEQ/L (2-14)
[2017-04-19 19:13] LABS: GFR ESTIMATE (CALCULATED) 34 mL/min/
[2017-04-19 19:14] LABS: UREA NITROGEN (BUN) 32 mg/dL (9-23)
[2017-04-19 19:19] LABS: TROP-I INTERPRETATION INDETERMINATE; TROPONIN-I 0.54 ng/mL (0.0-0.30)
[2017-04-19] MEDS ORDERED: SYMBICORT60 INHALAT IH (21:24)
[2017-04-19] MEDS ORDERED: AMARYL2 MG PO (21:25)
[2017-04-19] MEDS ORDERED: BACTRIM,SEPT1 TABLET PO (21:26)
[2017-04-19] MEDS ORDERED: LOPRESSOR25 MG PO (21:27)
[2017-04-19] MEDS ORDERED: DILTIAZEM 24HR180 MG PO (21:32)
[2017-04-19] MEDS ORDERED: LASIX40 MG PO (21:37)
[2017-04-19] MEDS ORDERED: COLACE100 MG PO (21:38)
[2017-04-19 21:53] LABS: MAGNESIUM 1.9 mg/dL (1.3-2.7)
[2017-04-19 23:56] LABS: INTER. NORMALIZED RATIO 1.4; PROTHROMBIN TIME 15.4 SEC (10.2-12.9)
[2017-04-19 23:59] LABS: PTT 29.8 SEC (25-37)
[2017-04-20] VITALS (8 sets, daily range): BP systolic 84–160; BP diastolic 66–100
[2017-04-20 00:34] LABS: TROP-I INTERPRETATION POSITIVE; TROPONIN-I 0.84 ng/mL (0.0-0.30)
[2017-04-20 05:39] LABS: MCH 26.5 PG (29.0-34.0); MCHC 29.7 G/DL (30.0-36.0); MCV 89.3 FL (86-99); MEAN PLAT.VOLUME 10.1 uM^3 (9.0-12.4); PLATELET COUNT 121 K/uL (156-360); RBC DIS.WIDTH-CV 16.8 % (11.8-14.6); RBC DIS.WIDTH-SD 54.7 % (39-53); RED BLOOD COUNT 3.92 M/uL (4.00-5.50); WHITE BLOOD COUNT 8.3 K/uL (4.1-10.2)
[2017-04-20 05:59] LABS: ALKALINE PHOSPHATASE 106 IU/L (3-129); ANION GAP 3 MEQ/L (2-14); CHLORIDE 97 MEQ/L (99-109); GFR ESTIMATE (CALCULATED) 41 mL/min/; POTASSIUM 5.1 MEQ/L (3.7-5.4); SAMPLE HEMOLYSIS CHECK 0; SAMPLE ICTERIC CHECK 0; SAMPLE LIPEMIA CHECK 0; SODIUM 137 MEQ/L (136-147); TOTAL BILIRUBIN 0.7 MG/DL (0.0-1.0); UREA NITROGEN (BUN) 34 mg/dL (9-23)
[2017-04-20 06:00] LABS: GLUCOSE 60 mg/dL (70-99)
[2017-04-20 07:24] LABS: TROP-I INTERPRETATION POSITIVE; TROPONIN-I 0.89 ng/mL (0.0-0.30)
[2017-04-20 08:17] LABS: POINT-OF-CARE METER ID UU14174216; POINT-OF-CARE USER ID ENVKC36
[2017-04-20 09:09] LABS: POINT-OF-CARE METER ID UU14314088; POINT-OF-CARE USER ID ENVKC36
[2017-04-20 11:41] LABS: POINT-OF-CARE METER ID UU14314088; POINT-OF-CARE USER ID ENVKC36
[2017-04-20 13:30] LABS: TROP-I INTERPRETATION POSITIVE; TROPONIN-I 0.66 ng/mL (0.0-0.30)
[2017-04-20 16:58] LABS: POINT-OF-CARE METER ID UU14174216; POINT-OF-CARE USER ID ENVKC36
[2017-04-20 21:24] LABS: POINT-OF-CARE METER ID UU14174216
[2017-04-21] VITALS (7 sets, daily range): BP systolic 106–162; BP diastolic 55–93
[2017-04-21 08:12] LABS: POINT-OF-CARE METER ID UU13113781
[2017-04-21 10:06] LABS: BASE EXCESS 9.1 mEq/L (-3 to +3); BICARBONATE 36.9 mEq/L (22-26); CARBOXY HGB 2.4 % (0-5); COMMENTS - BLOOD GASES A+C; DEVICE NC; METHEMOGLOBIN 1.3 % (0-1.5); O2 FLOW 3 L/MIN; PCO2 70 mm Hg (35-45); PO2 70 mm Hg (80-100); SITE LR; TOTAL RESP RATE 12 resp/min; pH 7.33 (7.35-7.45)
[2017-04-21 11:12] LABS: HEMATOCRIT 32.2 % (38.0-50.0); MCH 26.6 PG (29.0-34.0); MCHC 30.1 G/DL (30.0-36.0); MCV 88.2 FL (86-99); MEAN PLAT.VOLUME 10.1 uM^3 (9.0-12.4); PLATELET COUNT 106 K/uL (156-360); RBC DIS.WIDTH-CV 16.3 % (11.8-14.6); RBC DIS.WIDTH-SD 53.1 % (39-53); RED BLOOD COUNT 3.65 M/uL (4.00-5.50); WHITE BLOOD COUNT 6.9 K/uL (4.1-10.2)
[2017-04-21 11:32] LABS: POINT-OF-CARE METER ID UU13113781
[2017-04-21 11:58] LABS: ANION GAP 7 MEQ/L (2-14); CHLORIDE 97 MEQ/L (99-109); GFR ESTIMATE (CALCULATED) 50 mL/min/; POTASSIUM 5.5 MEQ/L (3.7-5.4); SAMPLE HEMOLYSIS CHECK 0; SAMPLE ICTERIC CHECK 0; SAMPLE LIPEMIA CHECK 0; SODIUM 135 MEQ/L (136-147); UREA NITROGEN (BUN) 32 mg/dL (9-23)
[2017-04-21 11:59] LABS: GLUCOSE 156 mg/dL (70-99)
[2017-04-21 16:15] LABS: POINT-OF-CARE METER ID UU13113781
[2017-04-21 21:27] LABS: POINT-OF-CARE METER ID UU14174216
[2017-04-22 04:00] VITALS: BP 167/82
[2017-04-22 05:59] LABS: HEMATOCRIT 33.2 % (38.0-50.0); MCH 26.7 PG (29.0-34.0); MCHC 30.1 G/DL (30.0-36.0); MCV 88.8 FL (86-99); MEAN PLAT.VOLUME 11.1 uM^3 (9.0-12.4); PLATELET COUNT 103 K/uL (156-360); RBC DIS.WIDTH-CV 16.4 % (11.8-14.6); RBC DIS.WIDTH-SD 52.9 % (39-53); RED BLOOD COUNT 3.74 M/uL (4.00-5.50); WHITE BLOOD COUNT 6.5 K/uL (4.1-10.2)
[2017-04-22 06:38] LABS: ANION GAP 9 MEQ/L (2-14); CHLORIDE 99 MEQ/L (99-109); POTASSIUM 5.9 MEQ/L (3.7-5.4); SAMPLE HEMOLYSIS CHECK 1; SAMPLE ICTERIC CHECK 0; SAMPLE LIPEMIA CHECK 0; SODIUM 137 MEQ/L (136-147)
[2017-04-22 06:43] LABS: GFR ESTIMATE (CALCULATED) > 59 mL/min/; GLUCOSE 132 mg/dL (70-99); UREA NITROGEN (BUN) 32 mg/dL (9-23)
[2017-04-22 07:54] LABS: POINT-OF-CARE METER ID UU14174216
[2017-04-22 08:30] VITALS: BP 183/85
[2017-04-22 10:47] VITALS: BP 170/99
[2017-04-22 11:41] LABS: POINT-OF-CARE METER ID UU14174216
[2017-04-22 12:24] VITALS: BP 187/87
[2017-04-22 16:34] LABS: POINT-OF-CARE METER ID UU14174216
[2017-04-22 16:40] VITALS: BP 125/79
[2017-04-22 19:30] VITALS: BP 165/79
[2017-04-22 20:51] LABS: POINT-OF-CARE METER ID UU14174216
[2017-04-23 00:20] VITALS: BP 137/76
[2017-04-23 04:05] VITALS: BP 161/76
[2017-04-23 06:45] LABS: HEMATOCRIT 32.6 % (38.0-50.0); MCH 26.4 PG (29.0-34.0); MCHC 29.8 G/DL (30.0-36.0); MCV 88.8 FL (86-99); MEAN PLAT.VOLUME 10.2 uM^3 (9.0-12.4); PLATELET COUNT 98 K/uL (156-360); RBC DIS.WIDTH-CV 16.1 % (11.8-14.6); RBC DIS.WIDTH-SD 52.4 % (39-53); RED BLOOD COUNT 3.67 M/uL (4.00-5.50)
[2017-04-23 07:08] LABS: ANION GAP 3 MEQ/L (2-14); CHLORIDE 100 MEQ/L (99-109); GFR ESTIMATE (CALCULATED) > 59 mL/min/; GLUCOSE 140 mg/dL (70-99); MAGNESIUM 1.8 mg/dl (1.3-2.7); POTASSIUM 5.2 MEQ/L (3.7-5.4); SAMPLE HEMOLYSIS CHECK 0; SAMPLE ICTERIC CHECK 0; SAMPLE LIPEMIA CHECK 0; SODIUM 139 MEQ/L (136-147); UREA NITROGEN (BUN) 25 mg/dL (9-23)
[2017-04-23 07:53] LABS: POINT-OF-CARE METER ID UU14174216
[2017-04-23 11:09] VITALS: BP 147/78
[2017-04-23 11:20] LABS: POINT-OF-CARE METER ID UU14174216
[2017-04-23] MEDS ORDERED: LEVEMIR100 UNIT/2 SC (13:39)
[2017-04-23] MEDS ORDERED: ASPIR-LOW81 MG PO (13:39)
[2017-04-23] MEDS ORDERED: CARDIZEM CD,CA240 MG PO (13:39)
[2017-04-23] MEDS ORDERED: LOPRESSOR50 MG PO (13:39)
[2017-04-23] MEDS ORDERED: LOPRESSOR25 MG PO (13:39)
[2017-04-23] MEDS ORDERED: CEFTIN500 MG PO (13:40)
[2017-04-23] MEDS ORDERED: LANTUS 3 M100 UNITS1 SC (20:42)
== END 2017-04-23 15:44 | disposition home or self-care (01) | DRG 308 ==
LOC: EME 18:30 → EDOF 23:23 → 4EAST 23:23 → ENRESERV 23:25 → 4EAST 04-20 04:20
PROVIDERS: Emergency Medicine; Hospitalist; Internal Medicine; Internal Medicine Cardiovascular Disease
PROC: 5A09357 Assistance with Respiratory Ventilation, Less than 24 Consecutive Hours, Continuous Positive Airway Pressure (ICD-10-PCS; principal; 2017-04-21)
DX: I48.0 Paroxysmal atrial fibrillation (principal); J96.21 Acute and chronic respiratory failure with hypoxia; L03.116 Cellulitis of left lower limb; N17.9 Acute kidney failure, unspecified; Z68.43 Body mass index [BMI] 50.0-59.9, adult; I13.0 Hypertensive heart and chronic kidney disease with heart failure and stage 1 through stage 4 chronic kidney disease, or unspecified chronic kidney disease; I50.22 Chronic systolic (congestive) heart failure; I24.8 Other forms of acute ischemic heart disease; R78.81 Bacteremia; J90 Pleural effusion, not elsewhere classified; I48.92 Unspecified atrial flutter; E66.01 Morbid (severe) obesity due to excess calories; G47.33 Obstructive sleep apnea (adult) (pediatric); I25.10 Atherosclerotic heart disease of native coronary artery without angina pectoris; I25.5 Ischemic cardiomyopathy; I27.20 Pulmonary hypertension, unspecified; I35.0 Nonrheumatic aortic (valve) stenosis; I42.0 Dilated cardiomyopathy; J43.9 Emphysema, unspecified; N18.3 Chronic kidney disease, stage 3 (moderate); E11.22 Type 2 diabetes mellitus with diabetic chronic kidney disease; E11.649 Type 2 diabetes mellitus with hypoglycemia without coma; E11.65 Type 2 diabetes mellitus with hyperglycemia; D64.9 Anemia, unspecified; D69.6 Thrombocytopenia, unspecified; E78.5 Hyperlipidemia, unspecified; E87.5 Hyperkalemia; T37.0X5A Adverse effect of sulfonamides, initial encounter; K21.9 Gastro-esophageal reflux disease without esophagitis; M79.7 Fibromyalgia; B95.61 Methicillin susceptible Staphylococcus aureus infection as the cause of diseases classified elsewhere; M71.22 Synovial cyst of popliteal space [Baker], left knee; M71.21 Synovial cyst of popliteal space [Baker], right knee; I25.2 Old myocardial infarction; K59.00 Constipation, unspecified; Z99.81 Dependence on supplemental oxygen; Z87.891 Personal history of nicotine dependence; Z87.442 Personal history of urinary calculi; Z83.3 Family history of diabetes mellitus; Z82.5 Family history of asthma and other chronic lower respiratory diseases; Z80.3 Family history of malignant neoplasm of breast; Z79.4 Long term (current) use of insulin; Z91.19 Patient's noncompliance with other medical treatment and regimen
CPT/HCPCS: 36415; 36600; 71010; 80048; 80053; 80202; 82803; 82948; 83605; 83735; 84132 91; 84443; 84484; 85025; 85027; 85610; 85651; 85730; 86140; 87040; 87801; 93005; 93970; 94640; 94640 76; 94660; 94799; 99202; 99281; 99285; J0610; J0692; J0696; J1815; J3370; J7040; J7050

== ENCOUNTER 2017-04-23 18:22 | Observation (INO) | payer OTHER ==
[~2017-04-23] VITALS: Ht 185.4 cm; Wt 200.9 kg
[~2017-04-23 18:22] MED LIST changes: +ASPIR-LOW81 MG PO; +BACTRIM,SEPT1 TABLET PO; +CARDIZEM CD,CA240 MG PO; +COLACE100 MG PO; +LEVEMIR100 UNIT/2 SC; +LOPRESSOR25 MG PO; +SYMBICORT60 INHALAT IH
[2017-04-23 19:34] LABS: EOSINOPHIL (%) 0.6 % (0-5); HEMATOCRIT 35.2 % (38.0-50.0); IMMATURE GRANULOCYTE (%) 0.1 % (0.0-0.7); INSTRUMENT ABS NEUTROPHIL CT 5.3 K/uL; LYMPHOCYTE COUNT 0.8 K/uL (1.0-2.8); MCH 26.4 PG (29.0-34.0); MCHC 29.5 G/DL (30.0-36.0); MCV 89.3 FL (86-99); MEAN PLAT.VOLUME 9.9 uM^3 (9.0-12.4); MONOCYTE (%) 8.5 % (3-12); MONOCYTE COUNT 0.6 K/uL (0-0.8); NEUTROPHIL (%) 79.2 % (45-76); NEUTROPHIL COUNT 5.3 K/uL (1.8-6.4); PLATELET COUNT 97 K/uL (156-360); RBC DIS.WIDTH-CV 15.9 % (11.8-14.6); RED BLOOD COUNT 3.94 M/uL (4.00-5.50); WHITE BLOOD COUNT 6.7 K/uL (4.1-10.2)
[2017-04-23 19:44] LABS: BICARBONATE 36.4 mEq/L (22-26); CARBOXY HGB 2.4 % (0-5); COMMENTS - BLOOD GASES A+C+; DEVICE NC; METHEMOGLOBIN 0.6 % (0-1.5); O2 FLOW 3 L/MIN; PCO2 66 mm Hg (35-45); PO2 68 mm Hg (80-100); SITE RR; TOTAL RESP RATE 21 resp/min; pH 7.35 (7.35-7.45)
[2017-04-23 19:45] LABS: CHLORIDE 99 mEq/L (99-109); POTASSIUM 5.5 mEq/L (3.7-5.4); SODIUM 138 mEq/L (136-147)
[2017-04-23 19:48] LABS: GLUCOSE 166 mg/dL (70-99)
[2017-04-23 19:49] LABS: ANION GAP 8 MEQ/L (2-14)
[2017-04-23 19:50] LABS: TOTAL BILIRUBIN 0.5 mg/dL (0.0-1.0)
[2017-04-23 19:51] LABS: ALKALINE PHOSPHATASE 120 IU/L (3-129)
[2017-04-23 19:52] LABS: GFR ESTIMATE (CALCULATED) > 59 mL/min/
[2017-04-23 19:53] LABS: UREA NITROGEN (BUN) 24 mg/dL (9-23)
[2017-04-23 19:55] LABS: CREATINE KINASE 70 IU/L (1-294); TOTAL CK 70 IU/L (1-294)
[2017-04-23 19:57] LABS: TROP-I INTERPRETATION NEGATIVE; TROPONIN-I 0.16 ng/mL (0.0-0.30)
[2017-04-23 20:00] LABS: CK-MB 1.5 ng/mL (0.0-4.9); MAGNESIUM 1.5 mg/dL (1.3-2.7)
[2017-04-23] MEDS ORDERED: LANTUS 3 M100 UNITS1 SC (20:42)
[2017-04-24 00:12] VITALS: BP 125/60
[2017-04-24 02:13] LABS: TROP-I INTERPRETATION NEGATIVE; TROPONIN-I 0.13 ng/mL (0.0-0.30)
[2017-04-24 04:54] VITALS: BP 142/73
[2017-04-24 07:35] VITALS: BP 137/77
[2017-04-24 08:25] LABS: POINT-OF-CARE METER ID UU14162513
[2017-04-24 08:46] LABS: HEMATOCRIT 33.5 % (38.0-50.0); MCH 26.7 PG (29.0-34.0); MCHC 29.9 G/DL (30.0-36.0); MCV 89.3 FL (86-99); PLATELET COUNT 88 K/uL (156-360); RBC DIS.WIDTH-CV 16.1 % (11.8-14.6); RBC DIS.WIDTH-SD 52.7 % (39-53); RED BLOOD COUNT 3.75 M/uL (4.00-5.50); WHITE BLOOD COUNT 5.8 K/uL (4.1-10.2)
[2017-04-24 09:14] LABS: ANION GAP 5 MEQ/L (2-14); CHLORIDE 100 MEQ/L (99-109); GFR ESTIMATE (CALCULATED) > 59 mL/min/; POTASSIUM 4.9 MEQ/L (3.7-5.4); SAMPLE HEMOLYSIS CHECK 0; SAMPLE ICTERIC CHECK 0; SAMPLE LIPEMIA CHECK 0; SODIUM 141 MEQ/L (136-147); UREA NITROGEN (BUN) 23 mg/dL (9-23)
[2017-04-24 09:16] LABS: GLUCOSE 114 mg/dL (70-99)
[2017-04-24 09:27] LABS: TROP-I INTERPRETATION NEGATIVE; TROPONIN-I 0.14 ng/mL (0.0-0.30)
[2017-04-24 11:56] LABS: BASE EXCESS 12.5 mEq/L (-3 to +3); BICARBONATE 40.5 mEq/L (22-26); CARBOXY HGB 2.5 % (0-5); PCO2 75 mm Hg (35-45); PO2 70 mm Hg (80-100); pH 7.34 (7.35-7.45)
[2017-04-24 11:57] LABS: COMMENTS - BLOOD GASES A+C+; DEVICE NC; O2 FLOW 3 L/MIN; SITE RR
[2017-04-24 11:58] LABS: TOTAL RESP RATE 18 resp/min
[2017-04-24 12:22] LABS: POINT-OF-CARE METER ID UU14162513
[2017-04-24 12:50] VITALS: BP 128/78
[2017-04-24 17:49] LABS: POINT-OF-CARE METER ID UU14162513
[2017-04-24 19:00] VITALS: BP 131/66
[2017-04-24 21:11] LABS: POINT-OF-CARE METER ID UU14162513
[2017-04-25] VITALS: BP 107/53
[2017-04-25 03:16] VITALS: BP 135/82
[2017-04-25 08:39] LABS: POINT-OF-CARE METER ID UU13113700
[2017-04-25 09:38] VITALS: BP 148/78
[2017-04-25 12:40] VITALS: BP 118/71
[2017-04-25 12:42] LABS: POINT-OF-CARE METER ID UU14162513
[2017-04-25 16:24] VITALS: BP 162/74
[2017-04-26] MEDS ORDERED: DUONEB 2.5-0.5 M3 ML IPPB (20:01)
[2017-04-26] MEDS ORDERED: LOPRESSOR25 MG PO (20:03)
[2017-04-26] MEDS ORDERED: GLIMEPIRIDE2 MG PO (20:04)
== END 2017-04-25 17:37 | disposition home or self-care (01) ==
LOC: EME 18:22 → 5WEST 22:08 → EDOF 22:08 → ENRESERV 22:21 → 5WEST 23:58
PROVIDERS: Emergency Medicine; Internal Medicine; Physician Assistant
DX: I48.0 Paroxysmal atrial fibrillation (principal); J96.21 Acute and chronic respiratory failure with hypoxia; L03.119 Cellulitis of unspecified part of limb; N17.9 Acute kidney failure, unspecified; E87.5 Hyperkalemia; J44.9 Chronic obstructive pulmonary disease, unspecified; D69.6 Thrombocytopenia, unspecified; D64.9 Anemia, unspecified; B95.61 Methicillin susceptible Staphylococcus aureus infection as the cause of diseases classified elsewhere; E11.65 Type 2 diabetes mellitus with hyperglycemia; G47.33 Obstructive sleep apnea (adult) (pediatric); I42.0 Dilated cardiomyopathy; E66.01 Morbid (severe) obesity due to excess calories; Z68.43 Body mass index [BMI] 50.0-59.9, adult; I87.2 Venous insufficiency (chronic) (peripheral); R60.9 Edema, unspecified; I25.10 Atherosclerotic heart disease of native coronary artery without angina pectoris; I25.2 Old myocardial infarction; Z99.81 Dependence on supplemental oxygen; I25.5 Ischemic cardiomyopathy; E78.5 Hyperlipidemia, unspecified; I10 Essential (primary) hypertension; I89.0 Lymphedema, not elsewhere classified; Z87.891 Personal history of nicotine dependence; Z79.01 Long term (current) use of anticoagulants; Z87.442 Personal history of urinary calculi
CPT/HCPCS: 36600; 71020; 80048; 80053; 82550; 82553; 82803; 82948; 83735; 83880; 84484; 85025; 85027; 93005; 94640; 94640 76; 94660; 94799; 99281; 99285; G0378; J1815; J1940

== ENCOUNTER 2017-04-26 15:48 | Inpatient (IN) | payer OTHER ==
[~2017-04-26] VITALS: Ht 185.4 cm; Wt 228.0 kg
[2017-04-26 16:36] LABS: BASE EXCESS 10.4 mEq/L (-3 to +3); BICARBONATE 37.9 mEq/L (22-26); CARBOXY HGB 2.1 % (0-5); pH 7.36 (7.35-7.45)
[2017-04-26 16:37] LABS: HEMATOCRIT 35.4 % (38.0-50.0); MCH 26.8 PG (29.0-34.0); MCHC 29.9 G/DL (30.0-36.0); MCV 89.4 FL (86-99); PLATELET COUNT 111 K/uL (156-360); RBC DIS.WIDTH-CV 16.4 % (11.8-14.6); RBC DIS.WIDTH-SD 52.9 % (39-53); RED BLOOD COUNT 3.96 M/uL (4.00-5.50); WHITE BLOOD COUNT 7.5 K/uL (4.1-10.2)
[2017-04-26 16:37] LABS: COMMENTS - BLOOD GASES A+C+; DEVICE AEROSOL FACE MASK; O2 FLOW 8 L/MIN; PCO2 67 mm Hg (35-45); PO2 101 mm Hg (80-100); SITE RR; TOTAL RESP RATE 20 resp/min
[2017-04-26 16:49] LABS: CHLORIDE 98 mEq/L (99-109); POTASSIUM 4.9 mEq/L (3.7-5.4); SODIUM 137 mEq/L (136-147)
[2017-04-26 16:51] LABS: GLUCOSE 151 mg/dL (70-99)
[2017-04-26 16:52] LABS: ANION GAP 7 MEQ/L (2-14)
[2017-04-26 16:53] LABS: TOTAL BILIRUBIN 0.6 mg/dL (0.0-1.0)
[2017-04-26 16:55] LABS: ALKALINE PHOSPHATASE 115 IU/L (3-129); GFR ESTIMATE (CALCULATED) > 59 mL/min/
[2017-04-26 16:56] LABS: UREA NITROGEN (BUN) 26 mg/dL (9-23)
[2017-04-26 17:04] LABS: TROP-I INTERPRETATION NEGATIVE; TROPONIN-I 0.04 ng/mL (0.0-0.30)
[2017-04-26] MEDS ORDERED: DUONEB 2.5-0.5 M3 ML IPPB (20:01)
[2017-04-26] MEDS ORDERED: LOPRESSOR25 MG PO (20:03)
[2017-04-26] MEDS ORDERED: GLIMEPIRIDE2 MG PO (20:04)
[2017-04-26 23:00] VITALS: BP 144/78
[2017-04-26 23:55] VITALS: BP 144/78
[2017-04-27 00:31] LABS: TROP-I INTERPRETATION NEGATIVE; TROPONIN-I 0.03 ng/mL (0.0-0.30)
[2017-04-27 04:05] VITALS: BP 133/67
[2017-04-27 05:27] LABS: HEMATOCRIT 33.7 % (38.0-50.0); MCH 26.7 PG (29.0-34.0); MCHC 29.7 G/DL (30.0-36.0); MCV 90.1 FL (86-99); MEAN PLAT.VOLUME 10.3 uM^3 (9.0-12.4); PLATELET COUNT 105 K/uL (156-360); RBC DIS.WIDTH-CV 16.8 % (11.8-14.6); RBC DIS.WIDTH-SD 55.1 % (39-53); RED BLOOD COUNT 3.74 M/uL (4.00-5.50); WHITE BLOOD COUNT 6.6 K/uL (4.1-10.2)
[2017-04-27 05:37] LABS: TROP-I INTERPRETATION NEGATIVE; TROPONIN-I 0.04 ng/mL (0.0-0.30)
[2017-04-27 05:49] LABS: ANION GAP 4 MEQ/L (2-14); CHLORIDE 97 MEQ/L (99-109); GFR ESTIMATE (CALCULATED) > 59 mL/min/; POTASSIUM 4.5 MEQ/L (3.7-5.4); SAMPLE HEMOLYSIS CHECK 0; SAMPLE ICTERIC CHECK 0; SAMPLE LIPEMIA CHECK 0; SODIUM 140 MEQ/L (136-147); UREA NITROGEN (BUN) 27 mg/dL (9-23)
[2017-04-27 05:50] LABS: GLUCOSE 99 mg/dL (70-99)
[2017-04-27 06:25] LABS: POINT-OF-CARE METER ID UU14149397
[2017-04-27 08:23] VITALS: BP 119/70
[2017-04-27 10:05] LABS: POINT-OF-CARE METER ID UU14149397
[2017-04-27 11:41] VITALS: BP 102/57
[2017-04-27 13:22] LABS: POINT-OF-CARE METER ID UU14149397
[2017-04-27 14:59] VITALS: BP 123/71
[2017-04-27 16:56] LABS: POINT-OF-CARE METER ID UU14208753
[2017-04-27 20:34] VITALS: BP 138/85
[2017-04-27 21:40] LABS: POINT-OF-CARE METER ID UU14208753
[2017-04-27 23:34] VITALS: BP 104/62
[2017-04-28 04:15] VITALS: BP 115/56
[2017-04-28 06:23] LABS: POINT-OF-CARE METER ID UU14208753
[2017-04-28 06:44] LABS: POINT-OF-CARE METER ID UU14117124
[2017-04-28 07:05] LABS: BASOPHIL COUNT 0.1 K/uL (0-0.1); EOSINOPHIL (%) 2.9 % (0-5); EOSINOPHIL COUNT 0.2 K/uL (0-0.3); HEMATOCRIT 35.5 % (38.0-50.0); IMMATURE GRANULOCYTE (%) 0.3 % (0.0-0.7); INSTRUMENT ABS NEUTROPHIL CT 3.7 K/uL; LYMPHOCYTE COUNT 1.4 K/uL (1.0-2.8); MCH 26.8 PG (29.0-34.0); MCV 92.2 FL (86-99); MEAN PLAT.VOLUME 10.8 uM^3 (9.0-12.4); MONOCYTE (%) 9.2 % (3-12); MONOCYTE COUNT 0.5 K/uL (0-0.8); NEUTROPHIL (%) 63.2 % (45-76); NEUTROPHIL COUNT 3.7 K/uL (1.8-6.4); PLATELET COUNT 107 K/uL (156-360); RBC DIS.WIDTH-CV 16.8 % (11.8-14.6); RBC DIS.WIDTH-SD 55.9 % (39-53); RED BLOOD COUNT 3.85 M/uL (4.00-5.50); WHITE BLOOD COUNT 5.9 K/uL (4.1-10.2)
[2017-04-28 07:05] LABS: POINT-OF-CARE METER ID UU14208753
[2017-04-28 08:00] VITALS: BP 145/78
[2017-04-28 08:05] LABS: ANION GAP 5 MEQ/L (2-14); CHLORIDE 97 MEQ/L (99-109); GFR ESTIMATE (CALCULATED) > 59 mL/min/; SAMPLE HEMOLYSIS CHECK 2; SAMPLE ICTERIC CHECK 0; SAMPLE LIPEMIA CHECK 0; SODIUM 141 MEQ/L (136-147); UREA NITROGEN (BUN) 25 mg/dL (9-23)
[2017-04-28 08:09] LABS: GLUCOSE 57 mg/dL (70-99); POTASSIUM ND MEQ/L (3.7-5.4)
[2017-04-28 10:43] LABS: POTASSIUM 4.5 MEQ/L (3.7-5.4)
[2017-04-28 11:45] LABS: POINT-OF-CARE METER ID UU14208753
[2017-04-28 11:57] VITALS: BP 96/55
[2017-04-28 15:41] VITALS: BP 109/56
[2017-04-28 16:19] LABS: POINT-OF-CARE METER ID UU14149397
[2017-04-28 22:10] LABS: POINT-OF-CARE METER ID UU14117124
[2017-04-29 00:36] VITALS: BP 114/59
[2017-04-29 04:58] VITALS: BP 156/72
[2017-04-29 06:50] LABS: POINT-OF-CARE METER ID UU14117124
[2017-04-29 06:54] LABS: EOSINOPHIL (%) 2.2 % (0-5); EOSINOPHIL COUNT 0.1 K/uL (0-0.3); HEMATOCRIT 33.9 % (38.0-50.0); IMMATURE GRANULOCYTE (%) 0.3 % (0.0-0.7); INSTRUMENT ABS NEUTROPHIL CT 4.1 K/uL; LYMPHOCYTE COUNT 1.3 K/uL (1.0-2.8); MCH 26.6 PG (29.0-34.0); MCHC 29.2 G/DL (30.0-36.0); MCV 91.1 FL (86-99); MEAN PLAT.VOLUME 9.8 uM^3 (9.0-12.4); MONOCYTE (%) 9.5 % (3-12); MONOCYTE COUNT 0.6 K/uL (0-0.8); NEUTROPHIL (%) 66.1 % (45-76); NEUTROPHIL COUNT 4.1 K/uL (1.8-6.4); PLATELET COUNT 96 K/uL (156-360); RBC DIS.WIDTH-CV 16.9 % (11.8-14.6); RBC DIS.WIDTH-SD 56.4 % (39-53); RED BLOOD COUNT 3.72 M/uL (4.00-5.50); WHITE BLOOD COUNT 6.2 K/uL (4.1-10.2)
[2017-04-29 07:25] VITALS: BP 152/73
[2017-04-29 08:03] LABS: ANION GAP 4 MEQ/L (2-14); CHLORIDE 95 MEQ/L (99-109); GFR ESTIMATE (CALCULATED) > 59 mL/min/; POTASSIUM 4.7 MEQ/L (3.7-5.4); SAMPLE HEMOLYSIS CHECK 0; SAMPLE ICTERIC CHECK 0; SAMPLE LIPEMIA CHECK 0; SODIUM 139 MEQ/L (136-147); UREA NITROGEN (BUN) 24 mg/dL (9-23)
[2017-04-29 08:09] LABS: GLUCOSE 84 mg/dL (70-99)
[2017-04-29 10:43] VITALS: BP 119/62
[2017-04-29 11:13] LABS: POINT-OF-CARE METER ID UU14208753
[2017-04-29 16:01] LABS: BASE EXCESS 16.4 mEq/L (-3 to +3); BICARBONATE 44.4 mEq/L (22-26); CARBOXY HGB 2.4 % (0-5); METHEMOGLOBIN 1.5 % (0-1.5); PCO2 75 mm Hg (35-45); PO2 71 mm Hg (80-100); SITE LR; pH 7.38 (7.35-7.45)
[2017-04-29 16:02] LABS: COMMENTS - BLOOD GASES A+C+; DEVICE NC; O2 FLOW 6 L/MIN; TOTAL RESP RATE 18 resp/min
[2017-04-29 16:32] VITALS: BP 108/67
[2017-04-29 16:59] LABS: POINT-OF-CARE METER ID UU14117124
[2017-04-29 18:26] VITALS: BP 112/56
[2017-04-29 20:44] LABS: POINT-OF-CARE METER ID UU13113698
[2017-04-29 22:22] LABS: BASE EXCESS 19.2 mEq/L (-3 to +3); BICARBONATE 46.9 mEq/L (22-26); CARBOXY HGB 2.5 % (0-5); METHEMOGLOBIN 1.3 % (0-1.5); PCO2 74 mm Hg (35-45); pH 7.41 (7.35-7.45)
[2017-04-29 22:23] LABS: COMMENTS - BLOOD GASES C+; O2 FLOW 8 L/MIN; PO2 55 mm Hg (80-100); SITE LR
[2017-04-29 23:18] LABS: POINT-OF-CARE METER ID UU13113698
[2017-04-30] VITALS (7 sets, daily range): BP systolic 123–166; BP diastolic 74–92
[2017-04-30 06:15] LABS: ANION GAP ND MEQ/L (2-14); CARBON DIOXIDE (BICARBONATE) > 40.0 MEQ/L (20-31); CHLORIDE 97 MEQ/L (99-109); GFR ESTIMATE (CALCULATED) > 59 mL/min/; GLUCOSE 92 mg/dL (70-99); POTASSIUM 4.5 MEQ/L (3.7-5.4); SAMPLE HEMOLYSIS CHECK 0; SAMPLE ICTERIC CHECK 0; SAMPLE LIPEMIA CHECK 0; SODIUM 142 MEQ/L (136-147); UREA NITROGEN (BUN) 21 mg/dL (9-23)
[2017-04-30 07:44] LABS: POINT-OF-CARE METER ID UU13113698
[2017-04-30 11:46] LABS: POINT-OF-CARE METER ID UU13113698
[2017-04-30 17:00] LABS: POINT-OF-CARE METER ID UU13113698
[2017-04-30 21:02] LABS: POINT-OF-CARE METER ID UU13113781
[2017-05-01 03:29] VITALS: BP 151/71
[2017-05-01 05:12] LABS: EOSINOPHIL (%) 0.2 % (0-5); HEMATOCRIT 33.3 % (38.0-50.0); IMMATURE GRANULOCYTE (%) 0.2 % (0.0-0.7); INSTRUMENT ABS NEUTROPHIL CT 4.2 K/uL; LYMPHOCYTE COUNT 0.7 K/uL (1.0-2.8); MCH 26.7 PG (29.0-34.0); MCHC 29.7 G/DL (30.0-36.0); MCV 89.8 FL (86-99); MEAN PLAT.VOLUME 10.4 uM^3 (9.0-12.4); MONOCYTE (%) 3.3 % (3-12); MONOCYTE COUNT 0.2 K/uL (0-0.8); NEUTROPHIL (%) 82.4 % (45-76); NEUTROPHIL COUNT 4.2 K/uL (1.8-6.4); PLATELET COUNT 104 K/uL (156-360); RBC DIS.WIDTH-CV 16.7 % (11.8-14.6); RBC DIS.WIDTH-SD 54.5 % (39-53); RED BLOOD COUNT 3.71 M/uL (4.00-5.50); WHITE BLOOD COUNT 5.1 K/uL (4.1-10.2)
[2017-05-01 05:59] LABS: GFR ESTIMATE (CALCULATED) > 59 mL/min/; UREA NITROGEN (BUN) 22 mg/dL (9-23)
[2017-05-01 06:00] LABS: ALKALINE PHOSPHATASE 97 IU/L (3-129); ANION GAP ND MEQ/L (2-14); CHLORIDE 96 MEQ/L (99-109); SAMPLE HEMOLYSIS CHECK 0; SAMPLE ICTERIC CHECK 0; SAMPLE LIPEMIA CHECK 0; SODIUM 139 MEQ/L (136-147); TOTAL BILIRUBIN 0.4 MG/DL (0.0-1.0)
[2017-05-01 06:01] LABS: CARBON DIOXIDE (BICARBONATE) > 40.0 MEQ/L (20-31); GLUCOSE 196 mg/dL (70-99); POTASSIUM 5.5 MEQ/L (3.7-5.4)
[2017-05-01 07:29] LABS: POINT-OF-CARE METER ID UU13113698
[2017-05-01 07:43] VITALS: BP 147/79
[2017-05-01 11:42] LABS: POINT-OF-CARE METER ID UU14314088
[2017-05-01 12:03] VITALS: BP 144/76
[2017-05-01 15:11] VITALS: BP 160/74
[2017-05-01 16:46] LABS: POINT-OF-CARE METER ID UU13113781
[2017-05-01 19:00] VITALS: BP 162/78
[2017-05-01 20:57] LABS: POINT-OF-CARE METER ID UU13113781
[2017-05-01 23:28] VITALS: BP 124/64
[2017-05-02 04:20] VITALS: BP 161/84
[2017-05-02 05:48] LABS: ANION GAP ND MEQ/L (2-14); CHLORIDE 94 MEQ/L (99-109); GFR ESTIMATE (CALCULATED) > 59 mL/min/; GLUCOSE 164 mg/dL (70-99); POTASSIUM 4.9 MEQ/L (3.7-5.4); SAMPLE HEMOLYSIS CHECK 1; SAMPLE ICTERIC CHECK 0; SAMPLE LIPEMIA CHECK 0; SODIUM 139 MEQ/L (136-147); UREA NITROGEN (BUN) 22 mg/dL (9-23)
[2017-05-02 05:53] LABS: CARBON DIOXIDE (BICARBONATE) > 40.0 MEQ/L (20-31)
[2017-05-02 07:48] LABS: POINT-OF-CARE METER ID UU13113781; POINT-OF-CARE USER ID NUTSLF44
[2017-05-02 08:39] VITALS: BP 175/82
[2017-05-02 12:08] LABS: POINT-OF-CARE METER ID UU13113698; POINT-OF-CARE USER ID NUTSLF44
[2017-05-02 12:23] VITALS: BP 176/94
[2017-05-02 12:33] LABS: BASE EXCESS 19.4 mEq/L (-3 to +3); BICARBONATE 47.8 mEq/L (22-26); PCO2 79 mm Hg (35-45); PO2 56 mm Hg (80-100); pH 7.39 (7.35-7.45)
[2017-05-02 12:34] LABS: COMMENTS - BLOOD GASES A+C+; DEVICE NC; O2 FLOW 3 L/MIN; SITE RR
[2017-05-02 16:41] VITALS: BP 179/86
[2017-05-02 16:43] LABS: POINT-OF-CARE METER ID UU13113698; POINT-OF-CARE USER ID NUTSLF44
[2017-05-02 19:00] VITALS: BP 178/91
[2017-05-02 20:24] LABS: POINT-OF-CARE METER ID UU13113781
[2017-05-02 23:27] VITALS: BP 123/58
[2017-05-03 03:48] VITALS: BP 159/75
[2017-05-03 05:29] LABS: EOSINOPHIL (%) 0.2 % (0-5); HEMATOCRIT 34.6 % (38.0-50.0); IMMATURE GRANULOCYTE (%) 0.5 % (0.0-0.7); INSTRUMENT ABS NEUTROPHIL CT 3.4 K/uL; LYMPHOCYTE COUNT 0.6 K/uL (1.0-2.8); MCH 26.3 PG (29.0-34.0); MCHC 29.8 G/DL (30.0-36.0); MCV 88.3 FL (86-99); MEAN PLAT.VOLUME 11.1 uM^3 (9.0-12.4); MONOCYTE (%) 1.9 % (3-12); MONOCYTE COUNT 0.1 K/uL (0-0.8); NEUTROPHIL (%) 82.3 % (45-76); NEUTROPHIL COUNT 3.4 K/uL (1.8-6.4); PLATELET COUNT 114 K/uL (156-360); RBC DIS.WIDTH-CV 16.7 % (11.8-14.6); RBC DIS.WIDTH-SD 53.6 % (39-53); RED BLOOD COUNT 3.92 M/uL (4.00-5.50); WHITE BLOOD COUNT 4.2 K/uL (4.1-10.2)
[2017-05-03 06:10] LABS: ALKALINE PHOSPHATASE 104 IU/L (3-129); ANION GAP ND MEQ/L (2-14); CARBON DIOXIDE (BICARBONATE) > 40.0 MEQ/L (20-31); CHLORIDE 91 MEQ/L (99-109); CHLORIDE 93 MEQ/L (99-109); GFR ESTIMATE (CALCULATED) > 59 mL/min/; GLUCOSE 188 mg/dL (70-99); GLUCOSE 189 mg/dL (70-99); POTASSIUM 4.8 MEQ/L (3.7-5.4); SAMPLE HEMOLYSIS CHECK 0; SAMPLE ICTERIC CHECK 0; SAMPLE LIPEMIA CHECK 0; SODIUM 137 MEQ/L (136-147); SODIUM 140 MEQ/L (136-147); UREA NITROGEN (BUN) 26 mg/dL (9-23); UREA NITROGEN (BUN) 27 mg/dL (9-23)
[2017-05-03 06:11] LABS: CARBON DIOXIDE (BICARBONATE) > 40.0 MEQ/L (20-31); TOTAL BILIRUBIN 0.5 MG/DL (0.0-1.0)
[2017-05-03 07:41] LABS: POINT-OF-CARE METER ID UU14174216
[2017-05-03 08:15] VITALS: BP 178/90
[2017-05-03 11:19] LABS: POINT-OF-CARE METER ID UU14174216
[2017-05-03] MEDS ORDERED: CEFTIN500 MG PO (12:10)
[2017-05-03] MEDS ORDERED: LOPRESSOR100 M1 PO (12:11)
[2017-05-03] MEDS ORDERED: ENALAPRIL MALEA10 MG PO (12:11)
[2017-05-03] MEDS ORDERED: LEVEMIR100 UNIT/2 SC (12:12)
[2017-05-03] MEDS ORDERED: PREDNISONE10 MG PO (12:12)
[2017-05-03 12:45] VITALS: BP 163/103
[2017-05-03] MEDS ORDERED: ROXICODONE15 MG PO (14:23)
[2017-05-03 15:19] LABS: HDL CHOLESTEROL 44 MG/DL (Desirable>=40); LDL CHOLESTEROL 67 mg/dL (Desirable<100); NON-HDL CHOLESTEROL 76 mg/dL (Desirable<160); TOTAL CHOLESTEROL 120 mg/dL (Desirable<200); TRIGLYCERIDES 43 MG/DL (Normal: <150)
[2017-05-03 17:32] LABS: Estimated Average Glucose 189 mg/dL (70-123); HEMOGLOBIN A1c (GLYCOHEMOGLOB) 8.2 % HGB (Below 5.7)
== END 2017-05-03 16:15 | DRG 871 ==
LOC: EME 15:48 → EDOF 20:50 → 4EAST 20:50 → 3EAST 20:50 → ENRESERV 20:55 → 3EAST 23:06 → ENRESERV 04-29 16:28 → 4EAST 04-29 18:17
PROVIDERS: Emergency Medicine; Hospitalist; Physician Assistant Medical; Student in an Organized Health Care Education/Training Program
DX: A41.9 Sepsis, unspecified organism (principal); J18.9 Pneumonia, unspecified organism; I50.43 Acute on chronic combined systolic (congestive) and diastolic (congestive) heart failure; J96.21 Acute and chronic respiratory failure with hypoxia; N17.9 Acute kidney failure, unspecified; E87.5 Hyperkalemia; Z68.43 Body mass index [BMI] 50.0-59.9, adult; I48.2 Chronic atrial fibrillation; J96.22 Acute and chronic respiratory failure with hypercapnia; I48.92 Unspecified atrial flutter; D69.6 Thrombocytopenia, unspecified; D64.9 Anemia, unspecified; E11.65 Type 2 diabetes mellitus with hyperglycemia; I25.5 Ischemic cardiomyopathy; E66.01 Morbid (severe) obesity due to excess calories; E55.9 Vitamin D deficiency, unspecified; I11.0 Hypertensive heart disease with heart failure; J44.1 Chronic obstructive pulmonary disease with (acute) exacerbation; L03.116 Cellulitis of left lower limb; G47.33 Obstructive sleep apnea (adult) (pediatric); I27.20 Pulmonary hypertension, unspecified; I25.10 Atherosclerotic heart disease of native coronary artery without angina pectoris; E78.5 Hyperlipidemia, unspecified; K21.9 Gastro-esophageal reflux disease without esophagitis; M79.7 Fibromyalgia; Z91.19 Patient's noncompliance with other medical treatment and regimen; I35.0 Nonrheumatic aortic (valve) stenosis; I07.1 Rheumatic tricuspid insufficiency; Z87.891 Personal history of nicotine dependence; Z99.81 Dependence on supplemental oxygen; Z87.442 Personal history of urinary calculi; I25.2 Old myocardial infarction
CPT/HCPCS: 36600; 71010; 71020; 80048; 80053; 80061; 82550; 82553; 82803; 82948; 83036; 83735; 83880; 84484; 84999; 85025; 85027; 93005; 94640; 94640 76; 94660; 94799; 97530 GP; 99202; 99281; 99285; G0378; J1815; J1940; J2920; J7512

== ENCOUNTER 2017-05-25 13:47 | Inpatient (IN) | payer OTHER ==
[~2017-05-25] VITALS: Ht 185.4 cm; Wt 217.0 kg
[~2017-05-25 13:47] MED LIST changes: +DUONEB 2.5-0.5 M3 ML IPPB; +GLIMEPIRIDE2 MG PO; +LOPRESSOR100 M1 PO; +RANITIDINE HCL300 MG PO
[2017-05-25 14:38] LABS: HEMATOCRIT 30.6 % (38.0-50.0); MCH 27.1 PG (29.0-34.0); MCHC 30.1 G/DL (30.0-36.0); MEAN PLAT.VOLUME 10.8 uM^3 (9.0-12.4); PLATELET COUNT 96 K/uL (156-360); RBC DIS.WIDTH-CV 18.1 % (11.8-14.6); RBC DIS.WIDTH-SD 59.3 % (39-53); WHITE BLOOD COUNT 7.1 K/uL (4.1-10.2)
[2017-05-25 14:49] LABS: CHLORIDE 96 mEq/L (99-109); POTASSIUM 5.9 mEq/L (3.7-5.4); SODIUM 138 mEq/L (136-147)
[2017-05-25 14:50] LABS: GLUCOSE 121 mg/dL (70-99)
[2017-05-25 14:52] LABS: ANION GAP 9 MEQ/L (2-14)
[2017-05-25 14:54] LABS: GFR ESTIMATE (CALCULATED) 28 mL/min/ (58.99-99999)
[2017-05-25 14:55] LABS: UREA NITROGEN (BUN) 25 mg/dL (9-23)
[2017-05-25 14:58] LABS: TROP-I INTERPRETATION NEGATIVE; TROPONIN-I 0.04 ng/mL (0.0-0.30)
[2017-05-25 16:30] LABS: ADD MIUA? YES; BILIRUBIN NEGATIVE; BLOOD NEGATIVE; COLOR AMBER ((YELLOW)); GLUCOSE (STRIP) 50; KETONES NEGATIVE; LEUKOCYTES NEGATIVE; NITRITE NEGATIVE; PROTEIN (STRIP) >=500; SPECIFIC GRAVITY 1.018 (1.000-1.030)
[2017-05-25 16:32] LABS: BASE EXCESS 11.7 mEq/L (-3 to +3); CARBOXY HGB 2.3 % (0-5); METHEMOGLOBIN 0.9 % (0-1.5); pH 7.35 (7.35-7.45)
[2017-05-25 16:33] LABS: BICARBONATE 39.2 mEq/L (22-26); COMMENTS - BLOOD GASES +C; DEVICE HFNC; O2 FLOW 12 L/MIN; PCO2 71 mm Hg (35-45); PO2 69 mm Hg (80-100); SITE RR +A; TOTAL RESP RATE 18 resp/min
[2017-05-25] MEDS ORDERED: ENALAPRIL MALEA10 MG PO (16:51)
[2017-05-25] MEDS ORDERED: CARDIZEM120 MG PO (16:57)
[2017-05-25] MEDS ORDERED: LOPRESSOR100 M1 PO (16:58)
[2017-05-25] MEDS ORDERED: TYLENOL REGULA325 MG PO (17:00)
[2017-05-25] MEDS ORDERED: DUONEB 2.5-0.5 M3 ML AEROSOL (17:00)
[2017-05-25] MEDS ORDERED: OXYCODONE HCL15 MG PO (17:01)
[2017-05-25 17:02] LABS: RED BLOOD CELLS RARE /HPF (0-5)
[2017-05-25 17:03] LABS: BACTERIA 1+ /HPF; CASTS PRESENT /LPF; CRYSTALS NONE SEEN; EPITHELIAL CELLS 1+ /HPF; MUCUS TRACE /LPF; UCUL ADDED? YES
[2017-05-25 17:04] LABS: HYALINE CASTS 15-20 /LPF
[2017-05-25 17:05] LABS: WAXY CASTS RARE /LPF
[2017-05-25 19:48] LABS: EOSINOPHIL (%) 0.3 % (0-5); IMMATURE GRANULOCYTE (%) 0.1 % (0.0-0.7); INSTRUMENT ABS NEUTROPHIL CT 4.7 K/uL; LYMPHOCYTE COUNT 1.7 K/uL (1.0-2.8); MONOCYTE COUNT 0.6 K/uL (0-0.8); NEUTROPHIL (%) 66.6 % (45-76); NEUTROPHIL COUNT 4.7 K/uL (1.8-6.4)
[2017-05-25 19:56] LABS: TOTAL BILIRUBIN 0.6 mg/dL (0.0-1.0)
[2017-05-25 19:57] LABS: ALKALINE PHOSPHATASE 112 IU/L (3-129)
[2017-05-25 20:00] LABS: DIRECT BILIRUBIN 0.3 mg/dL (0.0-0.3)
[2017-05-25 20:06] LABS: BASE EXCESS 12.2 mEq/L (-3 to +3); BICARBONATE 39.7 mEq/L (22-26); CARBOXY HGB 2.3 % (0-5); METHEMOGLOBIN 0.9 % (0-1.5); PCO2 72 mm Hg (35-45); pH 7.35 (7.35-7.45)
[2017-05-25 20:07] LABS: COMMENTS - BLOOD GASES C+; DEVICE NC; O2 FLOW 2 L/MIN; PO2 50 mm Hg (80-100); SITE LR; TOTAL RESP RATE 16 resp/min
[2017-05-25 20:45] LABS: CHLORIDE 98 mEq/L (99-109); POTASSIUM 5.2 mEq/L (3.7-5.4); SODIUM 140 mEq/L (136-147)
[2017-05-25 20:46] LABS: GLUCOSE 101 mg/dL (70-99)
[2017-05-25 20:48] LABS: ANION GAP 9 MEQ/L (2-14)
[2017-05-25 20:50] LABS: GFR ESTIMATE (CALCULATED) 29 mL/min/ (58.99-99999)
[2017-05-25 20:51] LABS: UREA NITROGEN (BUN) 28 mg/dL (9-23)
[2017-05-25 22:15] VITALS: BP 135/82; BP 138/82
[2017-05-25 23:53] LABS: METH RESISTANT S AUREUS PCR NEGATIVE (NEGATIVE)
[2017-05-25 23:54] LABS: PROBE CHECK PASS; SPECIMEN PROCESSING CONTROL PASS
[2017-05-26] VITALS (7 sets, daily range): BP systolic 115–142; BP diastolic 63–79
[2017-05-26 00:39] LABS: POINT-OF-CARE METER ID UU13113781
[2017-05-26 06:31] LABS: EOSINOPHIL (%) 3.9 % (0-5); EOSINOPHIL COUNT 0.2 K/uL (0-0.3); HEMATOCRIT 27.9 % (38.0-50.0); IMMATURE GRANULOCYTE (%) 0.2 % (0.0-0.7); INSTRUMENT ABS NEUTROPHIL CT 2.4 K/uL; LYMPHOCYTE COUNT 1.2 K/uL (1.0-2.8); MCH 27.3 PG (29.0-34.0); MCHC 30.1 G/DL (30.0-36.0); MCV 90.6 FL (86-99); MONOCYTE (%) 8.7 % (3-12); MONOCYTE COUNT 0.4 K/uL (0-0.8); NEUTROPHIL (%) 58.6 % (45-76); NEUTROPHIL COUNT 2.4 K/uL (1.8-6.4); PLATELET COUNT 87 K/uL (156-360); RBC DIS.WIDTH-CV 18.1 % (11.8-14.6); RBC DIS.WIDTH-SD 59.7 % (39-53); RED BLOOD COUNT 3.08 M/uL (4.00-5.50); WHITE BLOOD COUNT 4.2 K/uL (4.1-10.2)
[2017-05-26 06:58] LABS: ALKALINE PHOSPHATASE 97 IU/L (3-129); ANION GAP 4 MEQ/L (2-14); CHLORIDE 98 MEQ/L (99-109); GFR ESTIMATE (CALCULATED) 31 mL/min/ (58.99-99999); GLUCOSE 108 mg/dL (70-99); MAGNESIUM 1.9 mg/dl (1.3-2.7); POTASSIUM 4.7 MEQ/L (3.7-5.4); SAMPLE HEMOLYSIS CHECK 0; SAMPLE ICTERIC CHECK 0; SAMPLE LIPEMIA CHECK 0; SODIUM 139 MEQ/L (136-147); TOTAL BILIRUBIN 0.4 MG/DL (0.0-1.0); UREA NITROGEN (BUN) 30 mg/dL (9-23)
[2017-05-26 08:14] LABS: POINT-OF-CARE METER ID UU14174216
[2017-05-26 11:27] LABS: POINT-OF-CARE METER ID UU14174216
[2017-05-26 16:15] LABS: POINT-OF-CARE METER ID UU14174216
[2017-05-26 17:08] LABS: ADD MIUA? YES; BILIRUBIN NEGATIVE; BLOOD NEGATIVE; COLOR YELLOW ((YELLOW)); GLUCOSE (STRIP) NEGATIVE; KETONES NEGATIVE; LEUKOCYTES TRACE; NITRITE NEGATIVE; PROTEIN (STRIP) 30; SPECIFIC GRAVITY 1.015 (1.000-1.030); UROBILINOGEN 0.2 MG/DL (0.2-1.0)
[2017-05-26 17:31] LABS: UR CREATININE CONCENTRATION 153.3 MG/DL
[2017-05-26 17:42] LABS: BACTERIA RARE /HPF; EPITHELIAL CELLS 1+ /HPF; MUCUS NONE SEEN /LPF; RED BLOOD CELLS 15-20 /HPF (0-5)
[2017-05-26 21:03] LABS: POINT-OF-CARE METER ID UU13113781; POINT-OF-CARE USER ID ENVMNS
[2017-05-27 04:13] VITALS: BP 128/70
[2017-05-27 05:34] LABS: EOSINOPHIL (%) 4.9 % (0-5); EOSINOPHIL COUNT 0.2 K/uL (0-0.3); HEMATOCRIT 29.6 % (38.0-50.0); IMMATURE GRANULOCYTE (%) 0.3 % (0.0-0.7); INSTRUMENT ABS NEUTROPHIL CT 2.2 K/uL; MCH 26.6 PG (29.0-34.0); MCHC 30.1 G/DL (30.0-36.0); MCV 88.6 FL (86-99); MEAN PLAT.VOLUME 9.9 uM^3 (9.0-12.4); MONOCYTE (%) 9.2 % (3-12); MONOCYTE COUNT 0.3 K/uL (0-0.8); NEUTROPHIL (%) 57.8 % (45-76); NEUTROPHIL COUNT 2.2 K/uL (1.8-6.4); PLATELET COUNT 91 K/uL (156-360); RBC DIS.WIDTH-CV 17.8 % (11.8-14.6); RBC DIS.WIDTH-SD 58.3 % (39-53); RED BLOOD COUNT 3.34 M/uL (4.00-5.50); WHITE BLOOD COUNT 3.7 K/uL (4.1-10.2)
[2017-05-27 06:34] LABS: ANION GAP 7 MEQ/L (2-14); CHLORIDE 98 MEQ/L (99-109); GFR ESTIMATE (CALCULATED) 47 mL/min/ (58.99-99999); GLUCOSE 133 mg/dL (70-99); POTASSIUM 4.9 MEQ/L (3.7-5.4); SAMPLE HEMOLYSIS CHECK 0; SAMPLE ICTERIC CHECK 0; SAMPLE LIPEMIA CHECK 0; SODIUM 137 MEQ/L (136-147); UREA NITROGEN (BUN) 29 mg/dL (9-23)
[2017-05-27 07:42] LABS: POINT-OF-CARE METER ID UU13113781
[2017-05-27 08:16] VITALS: BP 169/78
[2017-05-27 11:11] VITALS: BP 130/62
[2017-05-27 11:46] LABS: POINT-OF-CARE METER ID UU13113781
[2017-05-27 15:13] VITALS: BP 175/92
[2017-05-27 16:48] LABS: POINT-OF-CARE METER ID UU14314088
[2017-05-27 16:53] VITALS: BP 130/86
[2017-05-27 19:30] VITALS: BP 178/85
[2017-05-27 21:02] LABS: POINT-OF-CARE METER ID UU14174216; POINT-OF-CARE USER ID ENVMNS
[2017-05-28 00:10] VITALS: BP 154/74
[2017-05-28 03:53] VITALS: BP 132/78
[2017-05-28 05:59] LABS: EOSINOPHIL (%) 3.6 % (0-5); EOSINOPHIL COUNT 0.1 K/uL (0-0.3); HEMATOCRIT 30.5 % (38.0-50.0); IMMATURE GRANULOCYTE (%) 0.3 % (0.0-0.7); INSTRUMENT ABS NEUTROPHIL CT 2.4 K/uL; LYMPHOCYTE COUNT 0.8 K/uL (1.0-2.8); MCH 27.4 PG (29.0-34.0); MCHC 31.1 G/DL (30.0-36.0); MCV 87.9 FL (86-99); MEAN PLAT.VOLUME 9.7 uM^3 (9.0-12.4); MONOCYTE (%) 9.3 % (3-12); MONOCYTE COUNT 0.3 K/uL (0-0.8); NEUTROPHIL (%) 64.5 % (45-76); NEUTROPHIL COUNT 2.4 K/uL (1.8-6.4); PLATELET COUNT 104 K/uL (156-360); RBC DIS.WIDTH-CV 17.8 % (11.8-14.6); RBC DIS.WIDTH-SD 57.1 % (39-53); RED BLOOD COUNT 3.47 M/uL (4.00-5.50); WHITE BLOOD COUNT 3.6 K/uL (4.1-10.2)
[2017-05-28 06:15] LABS: ALKALINE PHOSPHATASE 119 IU/L (3-129); ANION GAP 5 MEQ/L (2-14); CHLORIDE 99 MEQ/L (99-109); GFR ESTIMATE (CALCULATED) > 59 mL/min/ (58.99-99999); GLUCOSE 98 mg/dL (70-99); MAGNESIUM 1.7 mg/dl (1.3-2.7); POTASSIUM 4.8 MEQ/L (3.7-5.4); SAMPLE HEMOLYSIS CHECK 1; SAMPLE ICTERIC CHECK 0; SAMPLE LIPEMIA CHECK 0; SODIUM 140 MEQ/L (136-147); TOTAL BILIRUBIN 0.5 MG/DL (0.0-1.0); UREA NITROGEN (BUN) 21 mg/dL (9-23)
[2017-05-28 07:31] VITALS: BP 190/88
[2017-05-28 08:00] LABS: POINT-OF-CARE METER ID UU14174216; POINT-OF-CARE USER ID NUTSLF44
[2017-05-28 11:06] VITALS: BP 145/69
[2017-05-28 12:50] LABS: POINT-OF-CARE METER ID UU14174216; POINT-OF-CARE USER ID NUTSLF44
[2017-05-28] MEDS ORDERED: FUROSEMIDE20 MG PO (12:59)
[2017-05-28] MEDS ORDERED: AUGMENTIN875 MG PO (12:59)
[2017-05-28] MEDS ORDERED: NOVOLOG PE100 UNITS/ SC (12:59)
[2017-05-28] MEDS ORDERED: LEVEMIR100 UNIT/2 SC (12:59)
[2017-05-28] MEDS ORDERED: APRESOLINE25 MG PO (12:59)
== END 2017-05-28 17:00 | disposition home health service (06) | DRG 871 ==
LOC: EME 13:47 → EDOF 18:00 → 4EAST 18:00 → ENRESERV 18:04 → EDOF 18:54 → 4EAST 22:13
PROVIDERS: Emergency Medicine; Hospitalist; Internal Medicine Nephrology; Physician Assistant Medical; Student in an Organized Health Care Education/Training Program
DX: A41.9 Sepsis, unspecified organism (principal); J18.1 Lobar pneumonia, unspecified organism; J96.21 Acute and chronic respiratory failure with hypoxia; J44.1 Chronic obstructive pulmonary disease with (acute) exacerbation; I50.42 Chronic combined systolic (congestive) and diastolic (congestive) heart failure; J96.22 Acute and chronic respiratory failure with hypercapnia; C50.929 Malignant neoplasm of unspecified site of unspecified male breast; J44.0 Chronic obstructive pulmonary disease with (acute) lower respiratory infection; N17.9 Acute kidney failure, unspecified; E66.2 Morbid (severe) obesity with alveolar hypoventilation; Z68.43 Body mass index [BMI] 50.0-59.9, adult; I48.0 Paroxysmal atrial fibrillation; I25.10 Atherosclerotic heart disease of native coronary artery without angina pectoris; F32.9 Major depressive disorder, single episode, unspecified; E78.5 Hyperlipidemia, unspecified; E11.9 Type 2 diabetes mellitus without complications; I89.0 Lymphedema, not elsewhere classified; E11.22 Type 2 diabetes mellitus with diabetic chronic kidney disease; E87.5 Hyperkalemia; G25.3 Myoclonus; M54.40 Lumbago with sciatica, unspecified side; D64.9 Anemia, unspecified; I42.0 Dilated cardiomyopathy; I48.2 Chronic atrial fibrillation; D69.6 Thrombocytopenia, unspecified; R80.9 Proteinuria, unspecified; N18.3 Chronic kidney disease, stage 3 (moderate); E86.0 Dehydration; E87.4 Mixed disorder of acid-base balance; I35.0 Nonrheumatic aortic (valve) stenosis; I45.10 Unspecified right bundle-branch block; M79.7 Fibromyalgia; K21.9 Gastro-esophageal reflux disease without esophagitis; M10.9 Gout, unspecified; I13.0 Hypertensive heart and chronic kidney disease with heart failure and stage 1 through stage 4 chronic kidney disease, or unspecified chronic kidney disease; Z99.81 Dependence on supplemental oxygen; Z79.4 Long term (current) use of insulin; Z72.0 Tobacco use; Z91.19 Patient's noncompliance with other medical treatment and regimen; Z87.442 Personal history of urinary calculi; Z79.51 Long term (current) use of inhaled steroids; Z79.01 Long term (current) use of anticoagulants; Z79.899 Other long term (current) drug therapy; Z82.5 Family history of asthma and other chronic lower respiratory diseases; Z83.3 Family history of diabetes mellitus; I25.2 Old myocardial infarction
CPT/HCPCS: 36600; 71010; 71020; 76770; 80048; 80048 91; 80053; 80076; 81003; 82570; 82803; 82948; 83605; 83735; 83880; 84100; 84156; 84484; 85025; 85027; 87040; 87070; 87086; 87205; 87502; 87641; 93005; 94640; 94640 76; 94660; 94799; 99202; 99281; 99285; J0692; J1170; J1815; J2543; J3370; J7040; J7120; J7644

== ENCOUNTER 2017-06-05 17:53 | Inpatient (IN) | payer OTHER ==
[~2017-06-05] VITALS: Ht 186.7 cm; Wt 245.0 kg
[~2017-06-05 17:53] MED LIST changes: +APRESOLINE25 MG PO; +AUGMENTIN875 MG PO; +CARDIZEM120 MG PO; +FUROSEMIDE20 MG PO; +NOVOLOG PE100 UNITS/ SC; +OXYCODONE HCL15 MG PO; +TYLENOL REGULA325 MG PO
[2017-06-05 18:37] LABS: BASE EXCESS 2.3 mEq/L (-3 to +3); BICARBONATE 30.7 mEq/L (22-26); CARBOXY HGB 2.6 % (0-5); METHEMOGLOBIN 0.8 % (0-1.5); PCO2 70 mm Hg (35-45); PO2 42 mm Hg (80-100); SITE LR; pH 7.25 (7.35-7.45)
[2017-06-05 18:38] LABS: COMMENTS - BLOOD GASES A+C+; DEVICE NC; O2 FLOW 3 L/MIN
[2017-06-05 18:46] LABS: BASOPHIL (%) 0.4 % (0-1); EOSINOPHIL (%) 0.9 % (0-5); EOSINOPHIL COUNT 0.1 K/uL (0-0.3); HEMATOCRIT 34.2 % (38.0-50.0); IMMATURE GRANULOCYTE (%) 0.5 % (0.0-0.7); LYMPHOCYTE (%) 19.5 % (15-42); LYMPHOCYTE COUNT 1.6 K/uL (1.0-2.8); MCH 27.4 PG (29.0-34.0); MCHC 29.2 G/DL (30.0-36.0); MONOCYTE (%) 8.3 % (3-12); MONOCYTE COUNT 0.7 K/uL (0-0.8); NEUTROPHIL (%) 70.4 % (45-76); NEUTROPHIL COUNT 5.8 K/uL (1.8-6.4); RBC DIS.WIDTH-CV 19.4 % (11.8-14.6); RBC DIS.WIDTH-SD 66.5 % (39-53); RED BLOOD COUNT 3.65 M/uL (4.00-5.50); WHITE BLOOD COUNT 8.2 K/uL (4.1-10.2)
[2017-06-05 18:47] LABS: MCV 93.7 FL (86-99); PLATELET COUNT 170 K/uL (156-360)
[2017-06-05 18:50] LABS: INTER. NORMALIZED RATIO 1.7
[2017-06-05 18:52] LABS: CHLORIDE 98 mEq/L (99-109); SODIUM 138 mEq/L (136-147)
[2017-06-05 18:53] LABS: PTT 30.4 SEC (25-37)
[2017-06-05 18:54] LABS: GLUCOSE 86 mg/dL (70-99)
[2017-06-05 18:58] LABS: CREATININE 2.3 mg/dL (0.6-1.3); GFR ESTIMATE (CALCULATED) 31 mL/min/ (58.99-99999)
[2017-06-05 18:59] LABS: UREA NITROGEN (BUN) 47 mg/dL (9-23)
[2017-06-05 19:02] LABS: POTASSIUM 6.3 mEq/L (3.7-5.4)
[2017-06-05 19:06] LABS: TROP-I INTERPRETATION POSITIVE
[2017-06-06] MEDS ORDERED: LASIX40 MG PO (01:34)
[2017-06-06] MEDS ORDERED: CARDIZEM CD,CA180 MG PO (01:35)
[2017-06-06] MEDS ORDERED: METOPROLOL TART50 MG PO (01:35)
[2017-06-06 01:46] LABS: CHLORIDE 96 mEq/L (99-109); POTASSIUM 5.7 mEq/L (3.7-5.4); SODIUM 138 mEq/L (136-147)
[2017-06-06 01:48] LABS: GLUCOSE 70 mg/dL (70-99)
[2017-06-06 01:52] LABS: CREATININE 2.5 mg/dL (0.6-1.3); GFR ESTIMATE (CALCULATED) 28 mL/min/ (58.99-99999)
[2017-06-06 01:53] LABS: UREA NITROGEN (BUN) 54 mg/dL (9-23)
[2017-06-06 02:00] LABS: TROP-I INTERPRETATION POSITIVE
[2017-06-06 02:01] LABS: TROPONIN-I 0.67 ng/mL (0.0-0.30)
[2017-06-06 08:09] LABS: HEMATOCRIT 29.2 % (38.0-50.0); HEMOGLOBIN 8.8 G/DL (12.5-16.6); MCH 27.8 PG (29.0-34.0); MCHC 30.1 G/DL (30.0-36.0); MCV 92.1 FL (86-99); RBC DIS.WIDTH-CV 19.3 % (11.8-14.6); RBC DIS.WIDTH-SD 64.9 % (39-53); RED BLOOD COUNT 3.17 M/uL (4.00-5.50); WHITE BLOOD COUNT 5.6 K/uL (4.1-10.2)
[2017-06-06 08:11] LABS: TROP-I INTERPRETATION INDETERMINATE; TROPONIN-I 0.57 ng/mL (0.0-0.30)
[2017-06-06 08:24] LABS: CHLORIDE 99 mEq/L (99-109); POTASSIUM 5.5 mEq/L (3.7-5.4); SODIUM 140 mEq/L (136-147)
[2017-06-06 08:26] LABS: GLUCOSE 98 mg/dL (70-99)
[2017-06-06 08:30] LABS: CREATININE 2.5 mg/dL (0.6-1.3); GFR ESTIMATE (CALCULATED) 28 mL/min/ (58.99-99999)
[2017-06-06 08:31] LABS: UREA NITROGEN (BUN) 54 mg/dL (9-23)
[2017-06-06 08:54] LABS: PLAT.SUFFICIENCY DECREASED; PLATELET COUNT 116 K/uL (156-360)
[2017-06-06 11:02] LABS: URIC ACID 7.3 mg/dL (3.1-9.2)
[2017-06-06 11:14] LABS: APPEARANCE CLOUDY ((CLEAR)); BILIRUBIN NEGATIVE; BLOOD NEGATIVE; COLOR AMBER ((YELLOW)); GLUCOSE (STRIP) NEGATIVE; KETONES NEGATIVE; LEUKOCYTES NEGATIVE; NITRITE NEGATIVE; PROTEIN (STRIP) >=500; SPECIFIC GRAVITY 1.019 (1.000-1.030); UROBILINOGEN 0.2 MG/DL (0.2-1.0)
[2017-06-06 11:26] LABS: BACTERIA 2+ /HPF; EPITHELIAL CELLS RARE /HPF; MUCUS RARE /LPF; RED BLOOD CELLS 0-5 /HPF (0-5); WHITE BLOOD CELLS 0-5 /HPF (0-5)
[2017-06-06 11:26] LABS: BASE EXCESS 6.9 mEq/L (-3 to +3); BICARBONATE 35.1 mEq/L (22-26); CARBOXY HGB 2.5 % (0-5); COMMENTS - BLOOD GASES +C; METHEMOGLOBIN 0.5 % (0-1.5); O2 FLOW 2 L/MIN; PCO2 73 mm Hg (35-45); PO2 50 mm Hg (80-100); SITE LR +A; pH 7.29 (7.35-7.45)
[2017-06-06 11:27] LABS: DEVICE NC; TOTAL RESP RATE 23 resp/min
[2017-06-06 11:45] LABS: BASE EXCESS 6.9 mEq/L (-3 to +3); BICARBONATE 34.9 mEq/L (22-26); COMMENTS - BLOOD GASES +C; DEVICE NC; METHEMOGLOBIN 0.6 % (0-1.5); O2 FLOW 2 L/MIN; PCO2 71 mm Hg (35-45); PO2 61 mm Hg (80-100); SITE LR +A; TOTAL RESP RATE 22 resp/min
[2017-06-06 13:00] VITALS: BP 132/71
[2017-06-06 16:16] VITALS: BP 165/80
[2017-06-06 19:58] VITALS: BP 145/81
[2017-06-07 05:44] LABS: BASOPHIL (%) 0 % (0-1); EOSINOPHIL (%) 0 % (0-5); HEMATOCRIT 28.6 % (38.0-50.0); HEMOGLOBIN 8.5 G/DL (12.5-16.6); IMMATURE GRANULOCYTE (%) 0.4 % (0.0-0.7); LYMPHOCYTE (%) 20.4 % (15-42); LYMPHOCYTE COUNT 0.6 K/uL (1.0-2.8); MCH 27.2 PG (29.0-34.0); MCHC 29.7 G/DL (30.0-36.0); MCV 91.4 FL (86-99); MONOCYTE (%) 1.1 % (3-12); NEUTROPHIL (%) 78.1 % (45-76); NEUTROPHIL COUNT 2.2 K/uL (1.8-6.4); PLATELET COUNT 111 K/uL (156-360); RBC DIS.WIDTH-SD 62.6 % (39-53); RED BLOOD COUNT 3.13 M/uL (4.00-5.50); WHITE BLOOD COUNT 2.8 K/uL (4.1-10.2)
[2017-06-07 06:08] LABS: CHLORIDE 98 MEQ/L (99-109); POTASSIUM 5.3 MEQ/L (3.7-5.4); SODIUM 136 MEQ/L (136-147); UREA NITROGEN (BUN) 58 mg/dL (9-23)
[2017-06-07 06:09] LABS: GFR ESTIMATE (CALCULATED) 36 mL/min/ (58.99-99999); GLUCOSE 189 mg/dL (70-99); PHOSPHORUS 5.4 mg/dL (2.5-4.9)
[2017-06-07 08:30] VITALS: BP 104/68
[2017-06-07 12:27] VITALS: BP 97/59
[2017-06-07 16:28] VITALS: BP 112/68
[2017-06-07 20:00] VITALS: BP 129/72
[2017-06-07 20:00] LABS: BASOPHIL (%) 0 % (0-1); EOSINOPHIL (%) 0 % (0-5); HEMATOCRIT 30.7 % (38.0-50.0); HEMOGLOBIN 9.1 G/DL (12.5-16.6); IMMATURE GRANULOCYTE (%) 0.2 % (0.0-0.7); LYMPHOCYTE (%) 9.5 % (15-42); LYMPHOCYTE COUNT 0.4 K/uL (1.0-2.8); MCH 27.2 PG (29.0-34.0); MCHC 29.6 G/DL (30.0-36.0); MCV 91.6 FL (86-99); MONOCYTE (%) 2.5 % (3-12); MONOCYTE COUNT 0.1 K/uL (0-0.8); NEUTROPHIL (%) 87.8 % (45-76); NEUTROPHIL COUNT 3.9 K/uL (1.8-6.4); NRBC (%) 0.5 /100 WBC (0-0); PLATELET COUNT 126 K/uL (156-360); RBC DIS.WIDTH-CV 18.9 % (11.8-14.6); RBC DIS.WIDTH-SD 63.2 % (39-53); RED BLOOD COUNT 3.35 M/uL (4.00-5.50); WHITE BLOOD COUNT 4.4 K/uL (4.1-10.2)
[2017-06-07 20:11] LABS: ALBUMIN 3.3 G/DL (3.2-4.8); CHLORIDE 95 MEQ/L (99-109); POTASSIUM 5.2 MEQ/L (3.7-5.4); SODIUM 133 MEQ/L (136-147); TOTAL BILIRUBIN 0.5 MG/DL (0.0-1.0)
[2017-06-07 20:13] LABS: CARBON DIOXIDE (BICARBONATE) 36.8 MEQ/L (20-31)
[2017-06-07 20:16] LABS: ALKALINE PHOSPHATASE 92 IU/L (3-129); ALT (GPT) 9 IU/L (3-49); AST (GOT) 22 IU/L (2-34); GFR ESTIMATE (CALCULATED) 36 mL/min/ (58.99-99999); GLUCOSE 208 mg/dL (70-99); TOTAL PROTEIN 7.8 G/DL (6.4-8.3); UREA NITROGEN (BUN) 65 mg/dL (9-23)
[2017-06-07 20:19] LABS: INTER. NORMALIZED RATIO 1.5
[2017-06-07 20:30] LABS: ERTH.SED.RATE 79 MM/HR (0-20)
[2017-06-07 23:25] VITALS: BP 131/70
[2017-06-08] VITALS (9 sets, daily range): BP systolic 93–135; BP diastolic 52–93
[2017-06-08 05:28] LABS: BASOPHIL (%) 0 % (0-1); EOSINOPHIL (%) 0 % (0-5); HEMATOCRIT 30.4 % (38.0-50.0); HEMOGLOBIN 8.9 G/DL (12.5-16.6); IMMATURE GRANULOCYTE (%) 0.4 % (0.0-0.7); LYMPHOCYTE (%) 10.4 % (15-42); LYMPHOCYTE COUNT 0.5 K/uL (1.0-2.8); MCH 26.5 PG (29.0-34.0); MCHC 29.3 G/DL (30.0-36.0); MCV 90.5 FL (86-99); MONOCYTE (%) 2.3 % (3-12); MONOCYTE COUNT 0.1 K/uL (0-0.8); NEUTROPHIL (%) 86.9 % (45-76); NEUTROPHIL COUNT 4.5 K/uL (1.8-6.4); NRBC (%) 0.4 /100 WBC (0-0); PLATELET COUNT 132 K/uL (156-360); RBC DIS.WIDTH-CV 18.7 % (11.8-14.6); RBC DIS.WIDTH-SD 61.9 % (39-53); RED BLOOD COUNT 3.36 M/uL (4.00-5.50); WHITE BLOOD COUNT 5.2 K/uL (4.1-10.2)
[2017-06-08 05:54] LABS: CHLORIDE 94 MEQ/L (99-109); CREATININE 2.2 MG/DL (0.6-1.3); GFR ESTIMATE (CALCULATED) 32 mL/min/ (58.99-99999); GLUCOSE 180 mg/dL (70-99); POTASSIUM 5.7 MEQ/L (3.7-5.4); SODIUM 131 MEQ/L (136-147); UREA NITROGEN (BUN) 68 mg/dL (9-23)
[2017-06-08 11:55] LABS: BASE EXCESS 5.3 mEq/L (-3 to +3); BICARBONATE 33.4 mEq/L (22-26); CARBOXY HGB 1.9 % (0-5); METHEMOGLOBIN 1.3 % (0-1.5); PCO2 71 mm Hg (35-45); PO2 70 mm Hg (80-100)
[2017-06-08 11:56] LABS: COMMENTS - BLOOD GASES +C; DEVICE NC; O2 FLOW 4 L/MIN; SITE LR +A; TOTAL RESP RATE 16 resp/min
[2017-06-08 11:58] LABS: pH 7.28 (7.35-7.45)
[2017-06-08 14:05] LABS: BICARBONATE 31.7 mEq/L (22-26); CARBOXY HGB 1.9 % (0-5); METHEMOGLOBIN 1.1 % (0-1.5); PO2 73 mm Hg (80-100)
[2017-06-08 14:06] LABS: COMMENTS - BLOOD GASES +C; CONTINUOUS POS AIRWAY PRESSURE 6 cm H2O; DEVICE BIPAP; O2 FLOW 14 L/MIN; PCO2 66 mm Hg (35-45); PRES. SUPPORT 10 CM/H2O; SITE LR +A; TOTAL RESP RATE 16 resp/min
[2017-06-08 14:07] LABS: pH 7.29 (7.35-7.45)
[2017-06-08 16:12] LABS: BASE EXCESS 5.6 mEq/L (-3 to +3); BICARBONATE 33.8 mEq/L (22-26); CARBOXY HGB 2.5 % (0-5); COMMENTS - BLOOD GASES +C; CONTINUOUS POS AIRWAY PRESSURE 6 cm H2O; DEVICE BIPAP; METHEMOGLOBIN 1.2 % (0-1.5); O2 FLOW 12 L/MIN; PCO2 72 mm Hg (35-45); PO2 63 mm Hg (80-100); PRES. SUPPORT 10 CM/H2O; SITE LR +A; TOTAL RESP RATE 18 resp/min; pH 7.28 (7.35-7.45)
[2017-06-08 21:43] LABS: BASE EXCESS 4.4 mEq/L (-3 to +3); CARBOXY HGB 1.8 % (0-5); COMMENTS - BLOOD GASES A+C+; DEVICE BIPAP; METHEMOGLOBIN 1.3 % (0-1.5); O2 FLOW 6 L/MIN; PCO2 65 mm Hg (35-45); PO2 63 mm Hg (80-100); SITE LR
[2017-06-08 21:44] LABS: CONTINUOUS POS AIRWAY PRESSURE 8 cm H2O; PRES. SUPPORT 14 CM/H2O
[2017-06-09] VITALS (15 sets, daily range): BP systolic 98–157; BP diastolic 58–98
[2017-06-09 09:56] LABS: BASOPHIL (%) 0 % (0-1); EOSINOPHIL (%) 0 % (0-5); HEMATOCRIT 32.7 % (38.0-50.0); HEMOGLOBIN 10.1 G/DL (12.5-16.6); IMMATURE GRANULOCYTE (%) 0.4 % (0.0-0.7); LYMPHOCYTE (%) 12.3 % (15-42); LYMPHOCYTE COUNT 0.6 K/uL (1.0-2.8); MCH 27.4 PG (29.0-34.0); MCHC 30.9 G/DL (30.0-36.0); MCV 88.9 FL (86-99); MONOCYTE (%) 3.2 % (3-12); MONOCYTE COUNT 0.2 K/uL (0-0.8); NEUTROPHIL (%) 84.1 % (45-76); NEUTROPHIL COUNT 3.9 K/uL (1.8-6.4); NRBC (%) 0.4 /100 WBC (0-0); PLATELET COUNT 118 K/uL (156-360); RBC DIS.WIDTH-CV 18.7 % (11.8-14.6); RBC DIS.WIDTH-SD 61.1 % (39-53); RED BLOOD COUNT 3.68 M/uL (4.00-5.50); WHITE BLOOD COUNT 4.7 K/uL (4.1-10.2)
[2017-06-09 10:23] LABS: CHLORIDE 90 MEQ/L (99-109); GFR ESTIMATE (CALCULATED) 26 mL/min/ (58.99-99999); GLUCOSE 182 mg/dL (70-99); MAGNESIUM 2.1 mg/dl (1.3-2.7); PHOSPHORUS 6.6 mg/dL (2.5-4.9); POTASSIUM 4.9 MEQ/L (3.7-5.4); SODIUM 131 MEQ/L (136-147); UREA NITROGEN (BUN) 84 mg/dL (9-23)
[2017-06-09 10:26] LABS: CREATININE 2.7 MG/DL (0.6-1.3)
[2017-06-09 20:41] LABS: BASE EXCESS 3.5 mEq/L (-3 to +3); BICARBONATE 31.5 mEq/L (22-26); CARBOXY HGB 1.9 % (0-5); METHEMOGLOBIN 1.1 % (0-1.5); PCO2 67 mm Hg (35-45); PO2 63 mm Hg (80-100)
[2017-06-09 20:42] LABS: COMMENTS - BLOOD GASES C+; DEVICE NC; O2 FLOW 2 L/MIN; SITE RR; TOTAL RESP RATE 16 resp/min; pH 7.28 (7.35-7.45)
[2017-06-10] VITALS (14 sets, daily range): BP systolic 103–183; BP diastolic 64–99
[2017-06-10 14:10] LABS: CHLORIDE 88 MEQ/L (99-109); GFR ESTIMATE (CALCULATED) 23 mL/min/ (58.99-99999); MAGNESIUM 2.1 mg/dl (1.3-2.7); PHOSPHORUS 7.6 mg/dL (2.5-4.9); POTASSIUM 5.2 MEQ/L (3.7-5.4); SODIUM 125 MEQ/L (136-147); UREA NITROGEN (BUN) 100 mg/dL (9-23)
[2017-06-10 14:15] LABS: GLUCOSE 316 mg/dL (70-99)
[2017-06-11] VITALS (20 sets, daily range): BP systolic 109–146; BP diastolic 64–89
[2017-06-11 05:45] LABS: HEMATOCRIT 31.7 % (38.0-50.0); HEMOGLOBIN 9.8 G/DL (12.5-16.6); MCH 26.6 PG (29.0-34.0); MCHC 30.9 G/DL (30.0-36.0); MCV 85.9 FL (86-99); NRBC (%) 0.9 /100 WBC (0-0); PLATELET COUNT 115 K/uL (156-360); RBC DIS.WIDTH-CV 17.9 % (11.8-14.6); RBC DIS.WIDTH-SD 57.2 % (39-53); RED BLOOD COUNT 3.69 M/uL (4.00-5.50); WHITE BLOOD COUNT 5.7 K/uL (4.1-10.2)
[2017-06-11 07:00] LABS: ALBUMIN 3.4 G/DL (3.2-4.8); CHLORIDE 87 MEQ/L (99-109); CREATININE 3.2 MG/DL (0.6-1.3); GFR ESTIMATE (CALCULATED) 21 mL/min/ (58.99-99999); GLUCOSE 283 mg/dL (70-99); PHOSPHORUS 7.3 mg/dL (2.5-4.9); POTASSIUM 5.6 MEQ/L (3.7-5.4); SODIUM 126 MEQ/L (136-147)
[2017-06-11 07:16] LABS: UREA NITROGEN (BUN) 109 mg/dL (9-23)
[2017-06-11 08:14] LABS: BASE EXCESS 0.6 mEq/L (-3 to +3); BICARBONATE 28.7 mEq/L (22-26); CARBOXY HGB 2.2 % (0-5); METHEMOGLOBIN 1.4 % (0-1.5); PCO2 64 mm Hg (35-45); PO2 51 mm Hg (80-100)
[2017-06-11 08:15] LABS: COMMENTS - BLOOD GASES +C; DEVICE NC; O2 FLOW 2 L/MIN; SITE RR +A; TOTAL RESP RATE 22 resp/min; pH 7.26 (7.35-7.45)
[2017-06-12] VITALS (18 sets, daily range): BP systolic 104–160; BP diastolic 59–139
[2017-06-12 10:34] LABS: BASOPHIL (%) 0 % (0-1); EOSINOPHIL (%) 0 % (0-5); HEMATOCRIT 33.3 % (38.0-50.0); HEMOGLOBIN 10.3 G/DL (12.5-16.6); IMMATURE GRANULOCYTE (%) 1.5 % (0.0-0.7); LYMPHOCYTE (%) 10.3 % (15-42); LYMPHOCYTE COUNT 0.9 K/uL (1.0-2.8); MCH 26.5 PG (29.0-34.0); MCHC 30.9 G/DL (30.0-36.0); MCV 85.6 FL (86-99); NEUTROPHIL (%) 77.2 % (45-76); NEUTROPHIL COUNT 7.1 K/uL (1.8-6.4); NRBC (%) 1.3 /100 WBC (0-0); PLATELET COUNT 144 K/uL (156-360); RBC DIS.WIDTH-CV 18.2 % (11.8-14.6); RBC DIS.WIDTH-SD 57.1 % (39-53); RED BLOOD COUNT 3.89 M/uL (4.00-5.50); WHITE BLOOD COUNT 9.2 K/uL (4.1-10.2)
[2017-06-12 11:07] LABS: ALBUMIN 4.1 g/dL (3.2-4.8)
[2017-06-12 11:08] LABS: CHLORIDE 90 mEq/L (99-109); SODIUM 127 mEq/L (136-147)
[2017-06-12 11:10] LABS: GLUCOSE 279 mg/dL (70-99)
[2017-06-12 11:13] LABS: PHOSPHORUS 8.6 mg/dL (2.5-4.9)
[2017-06-12 11:14] LABS: GFR ESTIMATE (CALCULATED) 17 mL/min/ (58.99-99999)
[2017-06-12 11:15] LABS: CREATININE 3.8 mg/dL (0.6-1.3)
[2017-06-12 11:22] LABS: POTASSIUM 6.2 mEq/L (3.7-5.4); UREA NITROGEN (BUN) 134 mg/dL (9-23)
[2017-06-12 13:16] LABS: C4 COMPLEMENT 12 MG/DL (10-40)
[2017-06-12 14:06] LABS: HEPATITIS B SURFACE ANTIGEN Nonreactive; HEPATITIS C ANTIBODY Nonreactive
[2017-06-12 14:08] LABS: ANTI-HEPATITIS A VIRUS (IGM) Nonreactive
[2017-06-12 14:09] LABS: ANTI-HEPATITIS B CORE (IGM) Nonreactive
[2017-06-12 15:04] LABS: CHLORIDE 88 MEQ/L (99-109); CREATININE 3.8 MG/DL (0.6-1.3); GFR ESTIMATE (CALCULATED) 17 mL/min/ (58.99-99999); GLUCOSE 322 mg/dL (70-99); POTASSIUM 5.6 MEQ/L (3.7-5.4); SODIUM 126 MEQ/L (136-147)
[2017-06-12 15:05] LABS: UREA NITROGEN (BUN) 129 mg/dL (9-23)
[2017-06-13] VITALS (13 sets, daily range): BP systolic 117–183; BP diastolic 47–104
[2017-06-13 05:53] LABS: BASOPHIL (%) 0 % (0-1); EOSINOPHIL (%) 0.2 % (0-5); HEMATOCRIT 27.9 % (38.0-50.0); HEMOGLOBIN 9.2 G/DL (12.5-16.6); IMMATURE GRANULOCYTE (%) 0.6 % (0.0-0.7); LYMPHOCYTE (%) 5.6 % (15-42); LYMPHOCYTE COUNT 0.3 K/uL (1.0-2.8); MCH 27.8 PG (29.0-34.0); MCV 84.3 FL (86-99); MONOCYTE (%) 8.9 % (3-12); MONOCYTE COUNT 0.4 K/uL (0-0.8); NEUTROPHIL (%) 84.7 % (45-76); NEUTROPHIL COUNT 3.9 K/uL (1.8-6.4); NRBC (%) 0.9 /100 WBC (0-0); RBC DIS.WIDTH-CV 17.9 % (11.8-14.6); RBC DIS.WIDTH-SD 54.8 % (39-53); RED BLOOD COUNT 3.31 M/uL (4.00-5.50); WHITE BLOOD COUNT 4.6 K/uL (4.1-10.2)
[2017-06-13 06:15] LABS: ALBUMIN 3.4 G/DL (3.2-4.8); CHLORIDE 92 MEQ/L (99-109); GFR ESTIMATE (CALCULATED) 28 mL/min/ (58.99-99999); GLUCOSE 252 mg/dL (70-99); MAGNESIUM 2.1 mg/dl (1.3-2.7); PHOSPHORUS 5.7 mg/dL (2.5-4.9); SODIUM 132 MEQ/L (136-147); UREA NITROGEN (BUN) 100 mg/dL (9-23)
[2017-06-13 06:18] LABS: CREATININE 2.5 MG/DL (0.6-1.3)
[2017-06-13 06:20] LABS: PLAT.SUFFICIENCY DECREASED
[2017-06-13 06:21] LABS: PLATELET COUNT 84 K/uL (156-360)
[2017-06-13 13:13] LABS: HEPATITIS B SURFACE ANTIBODY Nonreactive
[2017-06-14 03:53] VITALS: BP 158/74
[2017-06-14 04:12] LABS: BASOPHIL (%) 0 % (0-1); EOSINOPHIL (%) 0 % (0-5); IMMATURE GRANULOCYTE (%) 0.9 % (0.0-0.7); LYMPHOCYTE (%) 4.5 % (15-42); LYMPHOCYTE COUNT 0.2 K/uL (1.0-2.8); MCHC 32.1 G/DL (30.0-36.0); MCV 84.1 FL (86-99); MONOCYTE (%) 6.3 % (3-12); MONOCYTE COUNT 0.3 K/uL (0-0.8); NEUTROPHIL (%) 88.3 % (45-76); NEUTROPHIL COUNT 4.1 K/uL (1.8-6.4); NRBC (%) 0.6 /100 WBC (0-0); PLATELET COUNT 81 K/uL (156-360); RBC DIS.WIDTH-SD 55.1 % (39-53); RED BLOOD COUNT 3.33 M/uL (4.00-5.50); WHITE BLOOD COUNT 4.6 K/uL (4.1-10.2)
[2017-06-14 04:28] LABS: ALBUMIN 3.5 g/dL (3.2-4.8); CHLORIDE 97 mEq/L (99-109)
[2017-06-14 04:29] LABS: MAGNESIUM 1.6 mg/dL (1.3-2.7); POTASSIUM 4.7 mEq/L (3.7-5.4); SODIUM 137 mEq/L (136-147)
[2017-06-14 04:31] LABS: GLUCOSE 300 mg/dL (70-99)
[2017-06-14 04:36] LABS: UREA NITROGEN (BUN) 65 mg/dL (9-23)
[2017-06-14 04:40] LABS: CREATININE 1.5 mg/dL (0.6-1.3); GFR ESTIMATE (CALCULATED) 50 mL/min/ (58.99-99999); PHOSPHORUS 3.4 mg/dL (2.5-4.9)
[2017-06-14 07:54] VITALS: BP 168/79
[2017-06-14 11:39] VITALS: BP 150/67
[2017-06-14 13:17] LABS: Neutrophil Cytoplasmic Aby Negative (Negative)
[2017-06-14 16:09] VITALS: BP 134/72
[2017-06-14 20:32] VITALS: BP 124/79
[2017-06-14 20:52] LABS: GLOMERULAR BASEMENT MEMB ABY+ <1.0 AI (<1.0)
[2017-06-15] VITALS (7 sets, daily range): BP systolic 120–188; BP diastolic 71–92
[2017-06-15 07:09] LABS: BASOPHIL (%) 0 % (0-1); EOSINOPHIL (%) 0 % (0-5); HEMATOCRIT 29.3 % (38.0-50.0); HEMOGLOBIN 8.8 G/DL (12.5-16.6); IMMATURE GRANULOCYTE (%) 2.2 % (0.0-0.7); LYMPHOCYTE (%) 9.1 % (15-42); LYMPHOCYTE COUNT 0.4 K/uL (1.0-2.8); MCH 26.1 PG (29.0-34.0); MCV 86.9 FL (86-99); MONOCYTE (%) 10.4 % (3-12); MONOCYTE COUNT 0.5 K/uL (0-0.8); NEUTROPHIL (%) 78.3 % (45-76); NEUTROPHIL COUNT 3.6 K/uL (1.8-6.4); NRBC (%) 0.4 /100 WBC (0-0); PLATELET COUNT 88 K/uL (156-360); RBC DIS.WIDTH-CV 18.7 % (11.8-14.6); RBC DIS.WIDTH-SD 59.4 % (39-53); RED BLOOD COUNT 3.37 M/uL (4.00-5.50); WHITE BLOOD COUNT 4.6 K/uL (4.1-10.2)
[2017-06-15 10:48] LABS: ALBUMIN 3.6 G/DL (3.2-4.8); CHLORIDE 99 MEQ/L (99-109); CREATININE 1.1 MG/DL (0.6-1.3); GFR ESTIMATE (CALCULATED) > 59 mL/min/ (58.99-99999); GLUCOSE 306 mg/dL (70-99); POTASSIUM 4.8 MEQ/L (3.7-5.4); SODIUM 143 MEQ/L (136-147); UREA NITROGEN (BUN) 54 mg/dL (9-23)
[2017-06-15 11:03] LABS: PHOSPHORUS 2.1 mg/dL (2.5-4.9)
[2017-06-16 00:22] VITALS: BP 172/78
[2017-06-16 02:18] LABS: BASOPHIL (%) 0.2 % (0-1); EOSINOPHIL (%) 0.2 % (0-5); HEMATOCRIT 29.6 % (38.0-50.0); HEMOGLOBIN 9.1 G/DL (12.5-16.6); IMMATURE GRANULOCYTE (%) 4.5 % (0.0-0.7); LYMPHOCYTE (%) 7.5 % (15-42); LYMPHOCYTE COUNT 0.5 K/uL (1.0-2.8); MCH 26.9 PG (29.0-34.0); MCHC 30.7 G/DL (30.0-36.0); MCV 87.6 FL (86-99); MONOCYTE (%) 9.9 % (3-12); MONOCYTE COUNT 0.7 K/uL (0-0.8); NEUTROPHIL (%) 77.7 % (45-76); NEUTROPHIL COUNT 5.2 K/uL (1.8-6.4); NRBC (%) 0.3 /100 WBC (0-0); PLATELET COUNT 80 K/uL (156-360); RBC DIS.WIDTH-CV 18.9 % (11.8-14.6); RED BLOOD COUNT 3.38 M/uL (4.00-5.50); WHITE BLOOD COUNT 6.7 K/uL (4.1-10.2)
[2017-06-16 02:25] LABS: INTER. NORMALIZED RATIO 1.3
[2017-06-16 02:27] LABS: PTT 60.2 SEC (25-37)
[2017-06-16 02:28] LABS: ALBUMIN 3.6 g/dL (3.2-4.8); CHLORIDE 99 mEq/L (99-109); POTASSIUM 5.1 mEq/L (3.7-5.4); SODIUM 141 mEq/L (136-147)
[2017-06-16 02:29] LABS: MAGNESIUM 1.7 mg/dL (1.3-2.7)
[2017-06-16 02:31] LABS: GLUCOSE 327 mg/dL (70-99)
[2017-06-16 02:34] LABS: CREATININE 1.2 mg/dL (0.6-1.3); GFR ESTIMATE (CALCULATED) > 59 mL/min/ (58.99-99999)
[2017-06-16 02:35] LABS: UREA NITROGEN (BUN) 56 mg/dL (9-23)
[2017-06-16 02:36] LABS: PHOSPHORUS 1.9 mg/dL (2.5-4.9)
[2017-06-16 08:43] VITALS: BP 182/95
[2017-06-16 12:32] VITALS: BP 139/75
[2017-06-16 15:15] VITALS: BP 130/75
[2017-06-16 19:56] VITALS: BP 178/85
[2017-06-17 00:42] VITALS: BP 147/67
[2017-06-17 04:00] VITALS: BP 130/63
[2017-06-17 07:28] LABS: ALBUMIN 3.2 G/DL (3.2-4.8); CHLORIDE 100 MEQ/L (99-109); CREATININE 0.9 MG/DL (0.6-1.3); GFR ESTIMATE (CALCULATED) > 59 mL/min/ (58.99-99999); PHOSPHORUS 2.1 mg/dL (2.5-4.9); SODIUM 142 MEQ/L (136-147); UREA NITROGEN (BUN) 47 mg/dL (9-23)
[2017-06-17 07:32] LABS: GLUCOSE 160 mg/dL (70-99)
[2017-06-17 08:09] VITALS: BP 164/84
[2017-06-17 11:44] VITALS: BP 123/62
[2017-06-17] MEDS ORDERED: LOPRESSOR100 M1 PO (13:36)
[2017-06-17] MEDS ORDERED: PRAVACHOL20 MG PO (13:36)
[2017-06-17] MEDS ORDERED: LEVEMIR100 UNIT/2 SC (13:36)
[2017-06-17] MEDS ORDERED: CALCIUM ACETAT667 MG PO (13:36)
[2017-06-17] MEDS ORDERED: PREDNISONE20 MG PO (13:36)
[2017-06-17] MEDS ORDERED: NEUTRA-PHOS,1 PACKET PO (13:52)
[2017-06-17] MEDS ORDERED: TAMSULOSIN HCL0.4 MG PO (14:05)
[2017-06-18] MEDS ORDERED: APRESOLINE25 MG PO (21:47)
[2017-06-18] MEDS ORDERED: PREDNISONE10 MG PO (21:50)
== END 2017-06-17 19:03 | disposition home health service (06) | DRG 682 ==
LOC: EME 17:53 → EDOF 20:36 → 4EAST 20:36 → ENRESERV 20:51 → CANRESERV 22:54 → EDOF 06-06 00:12 → ENRESERV 06-06 00:13 → 4EAST 06-06 12:46 → ENRESERV 06-07 14:43 → 5WEST 06-07 16:26 → ENRESERV 06-08 16:30 → 5WEST 06-08 16:33 → ENRESERV 06-08 17:08 → 4WEST 06-08 17:49 → ENRESERV 06-13 12:58 → 5SOUTH 06-13 13:45 → ENPENDDIS 06-17 13:40 → 5SOUTH 06-17 19:03
PROVIDERS: Emergency Medicine; Hospitalist; Internal Medicine; Internal Medicine Critical Care Medicine; Internal Medicine Nephrology; Internal Medicine Pulmonary Disease; Physician Assistant Medical; Specialist; Student in an Organized Health Care Education/Training Program
PROC: 5A09357 Assistance with Respiratory Ventilation, Less than 24 Consecutive Hours, Continuous Positive Airway Pressure (ICD-10-PCS; principal; 2017-06-05)
PROC: 5A1D70Z Performance of Urinary Filtration, Intermittent, Less than 6 Hours Per Day (ICD-10-PCS; 2017-06-12)
PROC: 02HV33Z Insertion of Infusion Device into Superior Vena Cava, Percutaneous Approach (ICD-10-PCS; 2017-06-12)
DX: N17.0 Acute kidney failure with tubular necrosis (principal); J96.21 Acute and chronic respiratory failure with hypoxia; J96.22 Acute and chronic respiratory failure with hypercapnia; J44.1 Chronic obstructive pulmonary disease with (acute) exacerbation; J44.0 Chronic obstructive pulmonary disease with (acute) lower respiratory infection; J18.9 Pneumonia, unspecified organism; I24.8 Other forms of acute ischemic heart disease; I21.4 Non-ST elevation (NSTEMI) myocardial infarction; D61.818 Other pancytopenia; E87.5 Hyperkalemia; E87.2 Acidosis; E87.1 Hypo-osmolality and hyponatremia; E11.65 Type 2 diabetes mellitus with hyperglycemia; I13.0 Hypertensive heart and chronic kidney disease with heart failure and stage 1 through stage 4 chronic kidney disease, or unspecified chronic kidney disease; I50.32 Chronic diastolic (congestive) heart failure; N18.3 Chronic kidney disease, stage 3 (moderate); E11.22 Type 2 diabetes mellitus with diabetic chronic kidney disease; I48.0 Paroxysmal atrial fibrillation; I48.92 Unspecified atrial flutter; I27.29 Other secondary pulmonary hypertension; I27.81 Cor pulmonale (chronic); I42.0 Dilated cardiomyopathy; E66.2 Morbid (severe) obesity with alveolar hypoventilation; Z99.81 Dependence on supplemental oxygen; Z68.45 Body mass index [BMI] 70 or greater, adult; E83.39 Other disorders of phosphorus metabolism; R33.9 Retention of urine, unspecified; I25.10 Atherosclerotic heart disease of native coronary artery without angina pectoris; E78.5 Hyperlipidemia, unspecified; I45.10 Unspecified right bundle-branch block; I25.5 Ischemic cardiomyopathy; G47.33 Obstructive sleep apnea (adult) (pediatric); K21.9 Gastro-esophageal reflux disease without esophagitis; F32.9 Major depressive disorder, single episode, unspecified; M79.7 Fibromyalgia; R80.9 Proteinuria, unspecified; Z79.01 Long term (current) use of anticoagulants; Z79.4 Long term (current) use of insulin; Z79.51 Long term (current) use of inhaled steroids; Z91.19 Patient's noncompliance with other medical treatment and regimen; Z87.891 Personal history of nicotine dependence; Z87.442 Personal history of urinary calculi; Z87.440 Personal history of urinary (tract) infections
CPT/HCPCS: 36600; 70450; 71045; 71250; 76705; 76770; 80048; 80048 91; 80053; 80069; 80074; 81003; 82140; 82803; 82948; 83520 90; 83605; 83735; 83880; 84100; 84300; 84484; 84550; 85025; 85025 91; 85027; 85379; 85610; 85651; 85730; 86021 90; 86038; 86160; 86162 90; 86706; 87040; 87070; 87205; 87641; 89190; 93005; 93970; 94002; 94640; 94640 76; 94660; 94760; 94799; 97530 GP; 99202; 99281; 99285; C1753; C1788; J1644; J1815; J1940; J2920; J2930; J7030; J7512; P9047

== ENCOUNTER 2017-06-18 15:15 | Observation (INO) | payer OTHER ==
[~2017-06-18] VITALS: Ht 185.4 cm; Wt 245.0 kg
[~2017-06-18 15:15] MED LIST changes: +CALCIUM ACETAT667 MG PO; +CARDIZEM CD,CA180 MG PO; +NEUTRA-PHOS,1 PACKET PO; +PREDNISONE20 MG PO; +TAMSULOSIN HCL0.4 MG PO
[2017-06-18 16:19] LABS: HEMATOCRIT 32.4 % (38.0-50.0); MCH 27.2 PG (29.0-34.0); MCHC 30.9 G/DL (30.0-36.0); PLATELET COUNT 72 K/uL (156-360); RBC DIS.WIDTH-CV 19.1 % (11.8-14.6); RBC DIS.WIDTH-SD 60.9 % (39-53); RED BLOOD COUNT 3.68 M/uL (4.00-5.50); WHITE BLOOD COUNT 10.1 K/uL (4.1-10.2)
[2017-06-18 16:25] LABS: INTER. NORMALIZED RATIO 1.2
[2017-06-18 16:31] LABS: CHLORIDE 101 mEq/L (99-109); POTASSIUM 4.4 mEq/L (3.7-5.4); SODIUM 145 mEq/L (136-147)
[2017-06-18 16:32] LABS: MAGNESIUM 1.5 mg/dL (1.3-2.7)
[2017-06-18 16:34] LABS: GLUCOSE 83 mg/dL (70-99)
[2017-06-18 16:37] LABS: CREATININE 0.9 mg/dL (0.6-1.3); GFR ESTIMATE (CALCULATED) > 59 mL/min/ (58.99-99999)
[2017-06-18 16:38] LABS: UREA NITROGEN (BUN) 42 mg/dL (9-23)
[2017-06-18 16:45] LABS: TROP-I INTERPRETATION NEGATIVE; TROPONIN-I 0.04 ng/mL (0.0-0.30)
[2017-06-18 17:40] LABS: APPEARANCE CLEAR ((CLEAR)); BILIRUBIN NEGATIVE; BLOOD SMALL; COLOR STRAW ((YELLOW)); GLUCOSE (STRIP) NEGATIVE; KETONES NEGATIVE; LEUKOCYTES TRACE; NITRITE NEGATIVE; PROTEIN (STRIP) NEGATIVE; SPECIFIC GRAVITY 1.011 (1.000-1.030); UROBILINOGEN 0.2 MG/DL (0.2-1.0)
[2017-06-18 17:44] LABS: BACTERIA NONE SEEN /HPF; EPITHELIAL CELLS RARE /HPF; MUCUS NONE SEEN /LPF; RED BLOOD CELLS 0-5 /HPF (0-5); UCUL ADDED? YES
[2017-06-18] MEDS ORDERED: APRESOLINE25 MG PO (21:47)
[2017-06-18] MEDS ORDERED: PREDNISONE10 MG PO (21:50)
[2017-06-19 01:25] VITALS: BP 134/79
[2017-06-19 05:28] LABS: HEMATOCRIT 27.7 % (38.0-50.0); HEMOGLOBIN 8.4 G/DL (12.5-16.6); MCHC 30.3 G/DL (30.0-36.0); MCV 89.1 FL (86-99); PLATELET COUNT 62 K/uL (156-360); RBC DIS.WIDTH-CV 19.1 % (11.8-14.6); RBC DIS.WIDTH-SD 61.7 % (39-53); RED BLOOD COUNT 3.11 M/uL (4.00-5.50); WHITE BLOOD COUNT 6.3 K/uL (4.1-10.2)
[2017-06-19 06:04] LABS: CHLORIDE 103 MEQ/L (99-109); CREATININE 0.8 MG/DL (0.6-1.3); GFR ESTIMATE (CALCULATED) > 59 mL/min/ (58.99-99999); POTASSIUM 4.4 MEQ/L (3.7-5.4); SODIUM 143 MEQ/L (136-147); UREA NITROGEN (BUN) 32 mg/dL (9-23)
[2017-06-19 06:05] LABS: GLUCOSE 130 mg/dL (70-99)
[2017-06-19 08:27] VITALS: BP 141/93
[2017-06-19 15:38] VITALS: BP 133/78
[2017-06-19 20:25] VITALS: BP 137/77
[2017-06-19 22:52] VITALS: BP 134/63
[2017-06-20 06:08] LABS: BASOPHIL (%) 0 % (0-1); EOSINOPHIL COUNT 0.2 K/uL (0-0.3); HEMATOCRIT 28.9 % (38.0-50.0); HEMOGLOBIN 8.8 G/DL (12.5-16.6); IMMATURE GRANULOCYTE (%) 0.5 % (0.0-0.7); LYMPHOCYTE (%) 14.6 % (15-42); LYMPHOCYTE COUNT 1.1 K/uL (1.0-2.8); MCH 27.2 PG (29.0-34.0); MCHC 30.4 G/DL (30.0-36.0); MCV 89.2 FL (86-99); MONOCYTE (%) 9.6 % (3-12); MONOCYTE COUNT 0.7 K/uL (0-0.8); NEUTROPHIL (%) 72.3 % (45-76); NEUTROPHIL COUNT 5.4 K/uL (1.8-6.4); PLATELET COUNT 67 K/uL (156-360); RBC DIS.WIDTH-CV 18.9 % (11.8-14.6); RBC DIS.WIDTH-SD 62.1 % (39-53); RED BLOOD COUNT 3.24 M/uL (4.00-5.50); WHITE BLOOD COUNT 7.4 K/uL (4.1-10.2)
[2017-06-20 06:50] LABS: CHLORIDE 100 MEQ/L (99-109); CREATININE 0.9 MG/DL (0.6-1.3); GFR ESTIMATE (CALCULATED) > 59 mL/min/ (58.99-99999); GLUCOSE 186 mg/dL (70-99); POTASSIUM 4.5 MEQ/L (3.7-5.4); SODIUM 141 MEQ/L (136-147); UREA NITROGEN (BUN) 30 mg/dL (9-23)
[2017-06-20 07:56] VITALS: BP 141/78
[2017-06-20 11:13] VITALS: BP 143/92
[2017-06-20 15:32] VITALS: BP 112/62
[2017-06-20 19:00] VITALS: BP 119/69
[2017-06-21] VITALS (7 sets, daily range): BP systolic 116–159; BP diastolic 64–88
[2017-06-21 10:31] LABS: CHLORIDE 99 MEQ/L (99-109); CREATININE 0.8 MG/DL (0.6-1.3); GFR ESTIMATE (CALCULATED) > 59 mL/min/ (58.99-99999); GLUCOSE 161 mg/dL (70-99); POTASSIUM 4.6 MEQ/L (3.7-5.4); SODIUM 139 MEQ/L (136-147); UREA NITROGEN (BUN) 23 mg/dL (9-23)
[2017-06-21 10:55] LABS: HEMATOCRIT 29.1 % (38.0-50.0); HEMOGLOBIN 8.8 G/DL (12.5-16.6); MCH 27.3 PG (29.0-34.0); MCHC 30.2 G/DL (30.0-36.0); MCV 90.4 FL (86-99); PLATELET COUNT 60 K/uL (156-360); RBC DIS.WIDTH-CV 18.9 % (11.8-14.6); RBC DIS.WIDTH-SD 61.9 % (39-53); RED BLOOD COUNT 3.22 M/uL (4.00-5.50); WHITE BLOOD COUNT 7.6 K/uL (4.1-10.2)
[2017-06-22 03:50] VITALS: BP 108/64
[2017-06-22 07:57] VITALS: BP 154/77
[2017-06-22 09:38] LABS: CHLORIDE 99 MEQ/L (99-109); GFR ESTIMATE (CALCULATED) > 59 mL/min/ (58.99-99999); POTASSIUM 4.5 MEQ/L (3.7-5.4); SODIUM 141 MEQ/L (136-147); UREA NITROGEN (BUN) 29 mg/dL (9-23)
[2017-06-22 09:39] LABS: GLUCOSE 80 mg/dL (70-99)
[2017-06-22 11:32] VITALS: BP 111/50
[2017-06-22 15:49] VITALS: BP 108/62
[2017-06-22 21:10] VITALS: BP 138/75
[2017-06-22 23:15] VITALS: BP 110/56
[2017-06-23 08:39] VITALS: BP 142/75
[2017-06-23 17:17] VITALS: BP 133/74
[2017-06-23 19:39] VITALS: BP 148/76
[2017-06-24] VITALS (7 sets, daily range): BP systolic 106–142; BP diastolic 59–90
[2017-06-25 05:01] VITALS: BP 108/51
[2017-06-25 08:28] VITALS: BP 172/79
[2017-06-25 09:58] LABS: HEMATOCRIT 26.5 % (38.0-50.0); MCH 27.3 PG (29.0-34.0); MCHC 30.2 G/DL (30.0-36.0); MCV 90.4 FL (86-99); RBC DIS.WIDTH-SD 62.7 % (39-53); RED BLOOD COUNT 2.93 M/uL (4.00-5.50); WHITE BLOOD COUNT 4.3 K/uL (4.1-10.2)
[2017-06-25 10:13] LABS: IMM.PLATELET FRACTION 3.4 (1-7)
[2017-06-25 10:15] LABS: PLATELET COUNT 40 K/uL (156-360)
[2017-06-25 10:25] LABS: CHLORIDE 96 MEQ/L (99-109); GFR ESTIMATE (CALCULATED) > 59 mL/min/ (58.99-99999); GLUCOSE 153 mg/dL (70-99); POTASSIUM 4.3 MEQ/L (3.7-5.4); SODIUM 141 MEQ/L (136-147); UREA NITROGEN (BUN) 25 mg/dL (9-23)
[2017-06-25 12:22] VITALS: BP 164/85
[2017-06-25 16:41] VITALS: BP 157/73
[2017-06-25 20:55] VITALS: BP 140/67
[2017-06-25 23:19] VITALS: BP 118/55
[2017-06-26] VITALS (11 sets, daily range): BP systolic 92–173; BP diastolic 53–83
[2017-06-26 05:09] LABS: HEMOGLOBIN 7.5 G/DL (12.5-16.6); MCH 27.1 PG (29.0-34.0); MCV 90.3 FL (86-99); RBC DIS.WIDTH-SD 62.6 % (39-53); RED BLOOD COUNT 2.77 M/uL (4.00-5.50); WHITE BLOOD COUNT 3.9 K/uL (4.1-10.2)
[2017-06-26 05:50] LABS: IMM.PLATELET FRACTION 2.6 (1-7); PLAT.SUFFICIENCY VERY DECREASED; PLATELET COUNT 39 K/uL (156-360)
[2017-06-26 10:39] LABS: HEMATOCRIT 25.4 % (38.0-50.0); HEMOGLOBIN 7.8 G/DL (12.5-16.6); MCV 90.4 FL (86-99)
[2017-06-26] MEDS ORDERED: BENZONATATE100 MG PO (11:37)
[2017-06-26] MEDS ORDERED: FUROSEMIDE40 MG PO (11:37)
[2017-06-26] MEDS ORDERED: HYDROCORTISONE30 G2 PR (11:37)
[2017-06-26 19:31] LABS: HEMATOCRIT 30.1 % (38.0-50.0); HEMOGLOBIN 9.1 G/DL (12.5-16.6); MCV 89.1 FL (86-99)
[2017-06-27 01:27] VITALS: BP 96/51
[2017-06-27 02:17] LABS: HEMATOCRIT 26.2 % (38.0-50.0); HEMOGLOBIN 8.2 G/DL (12.5-16.6); MCV 89.1 FL (86-99)
[2017-06-27 07:31] VITALS: BP 107/64
[2017-06-27 10:22] LABS: CHLORIDE 93 MEQ/L (99-109); GFR ESTIMATE (CALCULATED) 47 mL/min/ (58.99-99999); POTASSIUM 4.6 MEQ/L (3.7-5.4); SODIUM 137 MEQ/L (136-147); UREA NITROGEN (BUN) 36 mg/dL (9-23)
[2017-06-27 10:23] LABS: HEMATOCRIT 29.1 % (38.0-50.0); HEMOGLOBIN 8.9 G/DL (12.5-16.6); MCH 27.5 PG (29.0-34.0); MCHC 30.6 G/DL (30.0-36.0); MCV 89.8 FL (86-99); RBC DIS.WIDTH-CV 18.9 % (11.8-14.6); RBC DIS.WIDTH-SD 62.1 % (39-53); RED BLOOD COUNT 3.24 M/uL (4.00-5.50); WHITE BLOOD COUNT 4.1 K/uL (4.1-10.2)
[2017-06-27 10:26] LABS: CREATININE 1.6 MG/DL (0.6-1.3); GLUCOSE 113 mg/dL (70-99)
[2017-06-27 11:08] LABS: HEMATOLOGY COMMENT 1 SMEAR COMPATIBLE; IMM.PLATELET FRACTION 4.3 (1-7); PLAT.SUFFICIENCY DECREASED; PLATELET COUNT 34 K/uL (156-360)
[2017-06-27 11:29] VITALS: BP 111/59
[2017-06-27] MEDS ORDERED: CYANOCOBALAM1000 MCG PO (13:08)
[2017-06-27] MEDS ORDERED: PANTOPRAZOLE SO40 MG PO (13:18)
[2017-06-27 13:23] LABS: ALBUMIN 3.2 G/DL (3.2-4.8); ALKALINE PHOSPHATASE 125 IU/L (3-129); ALT (GPT) 33 IU/L (3-49); AST (GOT) 41 IU/L (2-34); DIRECT BILIRUBIN 0.1 mg/dL (0.0-0.3); IRON 40 MCG/DL (35-150); TOTAL BILIRUBIN 0.7 MG/DL (0.0-1.0); TOTAL PROTEIN 6.3 G/DL (6.4-8.3); TRANSFERRIN (TIBC) 258.3 mg/dL (215-380); TRANSFERRIN SATUR. 15 % (20-55)
[2017-06-27 14:09] LABS: FOLIC ACID (FOLATE) 14.4 NG/ML (5.0-22.0)
[2017-06-27] MEDS ORDERED: LYRICA100 MG PO (14:09)
[2017-06-27] MEDS ORDERED: OXYCODONE HCL15 MG PO (14:09)
[2017-06-27 14:23] LABS: FERRITIN 59 NG/ML (22-322)
[2017-06-27 14:45] LABS: LACTATE DEHYDROGENASE 381 IU/L (20-246)
[2017-06-27 15:35] VITALS: BP 133/85
== END 2017-06-27 17:58 ==
LOC: EME 15:15 → ENRESERV 21:48 → 5WEST 22:08 → EDOF 22:08 → ENRESERV 22:29 → EDOF 06-19 00:43 → 5WEST 06-19 00:45
PROVIDERS: Anesthesiology; Hospitalist; Physician Assistant Medical; Student in an Organized Health Care Education/Training Program
PROC: 30233N1 Transfusion of Nonautologous Red Blood Cells into Peripheral Vein, Percutaneous Approach (ICD-10-PCS; principal; 2017-06-26)
DX: R53.1 Weakness (principal); R26.89 Other abnormalities of gait and mobility; W18.11XA Fall from or off toilet without subsequent striking against object, initial encounter; J96.11 Chronic respiratory failure with hypoxia; D64.9 Anemia, unspecified; I48.91 Unspecified atrial fibrillation; E11.9 Type 2 diabetes mellitus without complications; E66.2 Morbid (severe) obesity with alveolar hypoventilation; Z68.43 Body mass index [BMI] 50.0-59.9, adult; N39.0 Urinary tract infection, site not specified; D69.6 Thrombocytopenia, unspecified; I21.4 Non-ST elevation (NSTEMI) myocardial infarction; I48.92 Unspecified atrial flutter; I25.10 Atherosclerotic heart disease of native coronary artery without angina pectoris; I42.9 Cardiomyopathy, unspecified; J44.9 Chronic obstructive pulmonary disease, unspecified; I11.0 Hypertensive heart disease with heart failure; I50.33 Acute on chronic diastolic (congestive) heart failure; E78.5 Hyperlipidemia, unspecified; I89.0 Lymphedema, not elsewhere classified; R00.1 Bradycardia, unspecified; Z99.81 Dependence on supplemental oxygen; I27.20 Pulmonary hypertension, unspecified; I35.0 Nonrheumatic aortic (valve) stenosis; F32.9 Major depressive disorder, single episode, unspecified; Z87.891 Personal history of nicotine dependence; Z82.5 Family history of asthma and other chronic lower respiratory diseases; Z83.49 Family history of other endocrine, nutritional and metabolic diseases; Z80.3 Family history of malignant neoplasm of breast; Z83.3 Family history of diabetes mellitus; I87.2 Venous insufficiency (chronic) (peripheral); L97.211 Non-pressure chronic ulcer of right calf limited to breakdown of skin; Z91.19 Patient's noncompliance with other medical treatment and regimen; Z79.01 Long term (current) use of anticoagulants; Z79.4 Long term (current) use of insulin
CPT/HCPCS: 71045; 80048; 80076; 81003; 82272; 82607; 82728; 82746; 82948; 83010 90; 83540; 83605; 83615; 83735; 83880; 84466; 84484; 85014; 85018; 85025; 85027; 85384; 85610; 86850; 86900; 86901; 86920; 87086; 93005; 93306; 94640; 94640 76; 94760; 94799; 97530 GP; 99202; 99281; 99285; G0378; G8987 CK; G8988 CI; G8989 CJ; J1815; J7512; P9016

== ENCOUNTER 2017-06-29 11:45 | Inpatient (IN) | payer OTHER ==
[2017-06-29] VITALS (7 sets, daily range): BP systolic 101–149; BP diastolic 64–91
[~2017-06-29] VITALS: Ht 185.4 cm; Wt 197.0 kg
[~2017-06-29 11:45] MED LIST changes: +BENZONATATE100 MG PO; +BREO ELLIPTA I1 EACH IH; +CYANOCOBALAM1000 MCG PO; +HYDROCORTISONE30 G2 PR; +PANTOPRAZOLE SO40 MG PO; -SYMBICORT60 INHALAT IH; +VENLAFAXINE HC150 MG PO
[2017-06-29 12:40] LABS: BASE EXCESS 18.4 mEq/L (-3 to +3); CARBOXY HGB 2.1 % (0-5); COMMENTS - BLOOD GASES A+C+; DEVICE N/V SPONT; FI02 50 %; METHEMOGLOBIN 0.9 % (0-1.5); MODE SPONT; PCO2 78 mm Hg (35-45); PO2 87 mm Hg (80-100); SITE RR; TOTAL RESP RATE 14 resp/min; pH 7.38 (7.35-7.45)
[2017-06-29 12:41] LABS: BICARBONATE 46.112 mEq/L (22-26); PEEP 5 CM/H20; PRES. SUPPORT 12 CM/H2O
[2017-06-29 13:32] LABS: HEMATOCRIT 26.3 % (38.0-50.0); HEMOGLOBIN 7.9 G/DL (12.5-16.6); MCH 27.5 PG (29.0-34.0); MCV 91.6 FL (86-99); RBC DIS.WIDTH-CV 18.5 % (11.8-14.6); RBC DIS.WIDTH-SD 61.7 % (39-53); RED BLOOD COUNT 2.87 M/uL (4.00-5.50); WHITE BLOOD COUNT 2.7 K/uL (4.1-10.2)
[2017-06-29 13:35] LABS: VENOUS PCO2 96 mm Hg (41-51)
[2017-06-29 13:37] LABS: CARBON DIOXIDE (BICARBONATE) > 40.0 MEQ/L (20-31)
[2017-06-29 13:41] LABS: CHLORIDE 92 mEq/L (99-109); POTASSIUM 4.8 mEq/L (3.7-5.4); SODIUM 140 mEq/L (136-147)
[2017-06-29 13:43] LABS: GLUCOSE 174 mg/dL (70-99)
[2017-06-29 13:48] LABS: UREA NITROGEN (BUN) 34 mg/dL (9-23)
[2017-06-29 13:53] LABS: TROP-I INTERPRETATION NEGATIVE; TROPONIN-I 0.02 ng/mL (0.0-0.30)
[2017-06-29 13:55] LABS: CARBON DIOXIDE (BICARBONATE) > 40.0 mEq/L (20-31); CREATININE 1.1 mg/dL (0.6-1.3); GFR ESTIMATE (CALCULATED) > 59 mL/min/ (58.99-99999)
[2017-06-29 14:06] LABS: PLAT.SUFFICIENCY DECREASED
[2017-06-29 14:15] LABS: PLATELET COUNT 45 K/uL (156-360)
[2017-06-29 14:34] LABS: BASE EXCESS 15.9 mEq/L (-3 to +3); PCO2 76 mm Hg (35-45); PO2 84 mm Hg (80-100); pH 7.38 (7.35-7.45)
[2017-06-29 14:35] LABS: COMMENTS - BLOOD GASES A+C+; DEVICE 980; FI02 50 %; MODE N/V SPONT; PEEP 5 CM/H20; PRES. SUPPORT 12 CM/H2O; SITE RR; TOTAL RESP RATE 18 resp/min
[2017-06-29 18:06] LABS: BASE EXCESS 20.6 mEq/L (-3 to +3); BICARBONATE 48.3 mEq/L (22-26); CARBOXY HGB 2.4 % (0-5); PCO2 78 mm Hg (35-45)
[2017-06-29 18:07] LABS: COMMENTS - BLOOD GASES A+C+; DEVICE 980- PB; FI02 30 %; MODE SPONT NIV; PEEP 5 CM/H20; PO2 55 mm Hg (80-100); PRES. SUPPORT 12 CM/H2O; SITE RR; TOTAL RESP RATE 13 resp/min
[2017-06-29 22:29] LABS: APPEARANCE CLEAR ((CLEAR)); BILIRUBIN NEGATIVE; BLOOD NEGATIVE; COLOR STRAW ((YELLOW)); GLUCOSE (STRIP) NEGATIVE; KETONES NEGATIVE; LEUKOCYTES NEGATIVE; NITRITE NEGATIVE; PROTEIN (STRIP) NEGATIVE; SPECIFIC GRAVITY 1.006 (1.000-1.030); UCUL ADDED? NO; UROBILINOGEN 0.2 MG/DL (0.2-1.0)
[2017-06-30] VITALS (18 sets, daily range): BP systolic 96–158; BP diastolic 48–96
[2017-06-30 05:47] LABS: BASE EXCESS 23.2 mEq/L (-3 to +3); BICARBONATE 49.8 mEq/L (22-26); CARBOXY HGB 2.3 % (0-5); PO2 56 mm Hg (80-100); pH 7.46 (7.35-7.45)
[2017-06-30 05:48] LABS: COMMENTS - BLOOD GASES C+; DEVICE NC; O2 FLOW 3 L/MIN; PCO2 70 mm Hg (35-45); SITE LR; TOTAL RESP RATE 16 resp/min
[2017-06-30 06:59] LABS: HEMATOCRIT 26.4 % (38.0-50.0); MCH 27.1 PG (29.0-34.0); MCHC 30.3 G/DL (30.0-36.0); MCV 89.5 FL (86-99); RBC DIS.WIDTH-CV 18.2 % (11.8-14.6); RED BLOOD COUNT 2.95 M/uL (4.00-5.50)
[2017-06-30 07:05] LABS: IMM.PLATELET FRACTION 2.9 (1-7); PLAT.SUFFICIENCY DECREASED; PLATELET COUNT 44 K/uL (156-360); WHITE BLOOD COUNT 1.7 K/uL (4.1-10.2)
[2017-06-30 07:12] LABS: ALBUMIN 2.9 G/DL (3.2-4.8); ALKALINE PHOSPHATASE 114 IU/L (3-129); ALT (GPT) 23 IU/L (3-49); CHLORIDE 94 MEQ/L (99-109); GFR ESTIMATE (CALCULATED) > 59 mL/min/ (58.99-99999); GLUCOSE 143 mg/dL (70-99); POTASSIUM 4.6 MEQ/L (3.7-5.4); SODIUM 140 MEQ/L (136-147); UREA NITROGEN (BUN) 33 mg/dL (9-23)
[2017-06-30 07:37] LABS: AST (GOT) 22 IU/L (2-34); CARBON DIOXIDE (BICARBONATE) > 40.0 MEQ/L (20-31); TOTAL BILIRUBIN 0.5 MG/DL (0.0-1.0)
[2017-07-01 00:15] VITALS: BP 126/62
[2017-07-01 04:15] VITALS: BP 133/83
[2017-07-01 06:58] LABS: CARBON DIOXIDE (BICARBONATE) > 40.0 MEQ/L (20-31); CHLORIDE 90 MEQ/L (99-109); GFR ESTIMATE (CALCULATED) > 59 mL/min/ (58.99-99999); GLUCOSE 172 mg/dL (70-99); POTASSIUM 4.8 MEQ/L (3.7-5.4); SODIUM 138 MEQ/L (136-147); UREA NITROGEN (BUN) 33 mg/dL (9-23)
[2017-07-01 07:38] LABS: BASOPHIL (%) 0 % (0-1); EOSINOPHIL (%) 0 % (0-5); HEMATOCRIT 27.9 % (38.0-50.0); HEMOGLOBIN 8.5 G/DL (12.5-16.6); IMMATURE GRANULOCYTE (%) 0.4 % (0.0-0.7); LYMPHOCYTE (%) 29.8 % (15-42); LYMPHOCYTE COUNT 0.8 K/uL (1.0-2.8); MCH 26.8 PG (29.0-34.0); MCHC 30.5 G/DL (30.0-36.0); MONOCYTE (%) 12.7 % (3-12); MONOCYTE COUNT 0.3 K/uL (0-0.8); NEUTROPHIL (%) 57.1 % (45-76); NEUTROPHIL COUNT 1.4 K/uL (1.8-6.4); RBC DIS.WIDTH-SD 59.1 % (39-53); RED BLOOD COUNT 3.17 M/uL (4.00-5.50); WHITE BLOOD COUNT 2.5 K/uL (4.1-10.2)
[2017-07-01 07:39] LABS: PLATELET COUNT 62 K/uL (156-360)
[2017-07-01 08:12] VITALS: BP 148/93
[2017-07-01 12:00] VITALS: BP 134/76
[2017-07-01 16:00] VITALS: BP 114/66
[2017-07-01 16:07] LABS: BASOPHIL (%) 0 % (0-1); EOSINOPHIL (%) 0.4 % (0-5); HEMATOCRIT 27.6 % (38.0-50.0); HEMOGLOBIN 8.5 G/DL (12.5-16.6); IMMATURE GRANULOCYTE (%) 0.4 % (0.0-0.7); LYMPHOCYTE (%) 23.3 % (15-42); LYMPHOCYTE COUNT 0.6 K/uL (1.0-2.8); MCH 27.3 PG (29.0-34.0); MCHC 30.8 G/DL (30.0-36.0); MCV 88.7 FL (86-99); MONOCYTE (%) 11.5 % (3-12); MONOCYTE COUNT 0.3 K/uL (0-0.8); NEUTROPHIL (%) 64.4 % (45-76); NEUTROPHIL COUNT 1.7 K/uL (1.8-6.4); PLATELET COUNT 65 K/uL (156-360); RBC DIS.WIDTH-SD 58.7 % (39-53); RED BLOOD COUNT 3.11 M/uL (4.00-5.50); WHITE BLOOD COUNT 2.7 K/uL (4.1-10.2)
[2017-07-01 16:33] LABS: CHLORIDE 91 MEQ/L (99-109); CREATININE 1.1 MG/DL (0.6-1.3); GFR ESTIMATE (CALCULATED) > 59 mL/min/ (58.99-99999); GLUCOSE 213 mg/dL (70-99); POTASSIUM 4.5 MEQ/L (3.7-5.4); SODIUM 139 MEQ/L (136-147); UREA NITROGEN (BUN) 31 mg/dL (9-23)
[2017-07-01 19:35] VITALS: BP 122/76
[2017-07-02] VITALS (7 sets, daily range): BP systolic 134–170; BP diastolic 72–93
[2017-07-02 09:56] LABS: HEMATOCRIT 29.5 % (38.0-50.0); HEMOGLOBIN 8.7 G/DL (12.5-16.6); MCH 26.2 PG (29.0-34.0); MCHC 29.5 G/DL (30.0-36.0); MCV 88.9 FL (86-99); RBC DIS.WIDTH-CV 17.6 % (11.8-14.6); RBC DIS.WIDTH-SD 56.7 % (39-53); RED BLOOD COUNT 3.32 M/uL (4.00-5.50)
[2017-07-02 10:05] LABS: PLATELET COUNT 87 K/uL (156-360)
[2017-07-02 10:24] LABS: BASOPHIL (%) 0 % (0-1); EOSINOPHIL (%) 0 % (0-5); LYMPHOCYTE (%) 21.5 % (15-42); LYMPHOCYTE COUNT 0.4 K/uL (1.0-2.8); MONOCYTE (%) 5.5 % (3-12); MONOCYTE COUNT 0.1 K/uL (0-0.8); NEUTROPHIL COUNT 1.4 K/uL (1.8-6.4); PLAT.SUFFICIENCY DECREASED
[2017-07-02 10:34] LABS: CHLORIDE 93 MEQ/L (99-109); CREATININE 0.9 MG/DL (0.6-1.3); GFR ESTIMATE (CALCULATED) > 59 mL/min/ (58.99-99999); GLUCOSE 269 mg/dL (70-99); SODIUM 142 MEQ/L (136-147); UREA NITROGEN (BUN) 29 mg/dL (9-23)
[2017-07-02 10:36] LABS: CARBON DIOXIDE (BICARBONATE) > 40.0 MEQ/L (20-31)
[2017-07-03 04:27] VITALS: BP 162/94
[2017-07-03 06:03] LABS: HEMATOCRIT 29.5 % (38.0-50.0); MCHC 30.5 G/DL (30.0-36.0); MCV 88.6 FL (86-99); PLATELET COUNT 88 K/uL (156-360); RBC DIS.WIDTH-CV 17.2 % (11.8-14.6); RBC DIS.WIDTH-SD 55.7 % (39-53); RED BLOOD COUNT 3.33 M/uL (4.00-5.50); WHITE BLOOD COUNT 2.3 K/uL (4.1-10.2)
[2017-07-03 06:24] LABS: CHLORIDE 93 MEQ/L (99-109); GFR ESTIMATE (CALCULATED) > 59 mL/min/ (58.99-99999); GLUCOSE 254 mg/dL (70-99); POTASSIUM 4.1 MEQ/L (3.7-5.4); SODIUM 142 MEQ/L (136-147); UREA NITROGEN (BUN) 30 mg/dL (9-23)
[2017-07-03 06:25] LABS: CARBON DIOXIDE (BICARBONATE) > 40.0 MEQ/L (20-31)
[2017-07-03 06:51] LABS: BASOPHIL (%) 0 % (0-1); EOSINOPHIL (%) 0 % (0-5); IMMATURE GRANULOCYTE (%) 1.3 % (0.0-0.7); LYMPHOCYTE (%) 21.1 % (15-42); LYMPHOCYTE COUNT 0.5 K/uL (1.0-2.8); MONOCYTE (%) 6.1 % (3-12); MONOCYTE COUNT 0.1 K/uL (0-0.8); NEUTROPHIL (%) 71.5 % (45-76); NEUTROPHIL COUNT 1.6 K/uL (1.8-6.4); PLAT.SUFFICIENCY DECREASED
[2017-07-03] MEDS ORDERED: TRADJENTA5 MG PO (11:28)
[2017-07-03] MEDS ORDERED: LASIX40 MG/4 ML IM (11:32)
[2017-07-03] MEDS ORDERED: LYRICA100 MG PO (11:33)
[2017-07-03] MEDS ORDERED: LOPRESSOR50 MG PO (11:36)
[2017-07-03] MEDS ORDERED: PROVENTIL HFA6.7 GM IH (11:46)
[2017-07-03 12:12] VITALS: BP 129/74
[2017-07-03 15:49] VITALS: BP 131/76
[2017-07-03 20:24] VITALS: BP 154/74
[2017-07-03 22:29] VITALS: BP 148/75
[2017-07-04] VITALS (7 sets, daily range): BP systolic 116–176; BP diastolic 56–92
[2017-07-04 06:06] LABS: BASOPHIL (%) 0 % (0-1); EOSINOPHIL (%) 0 % (0-5); HEMOGLOBIN 8.7 G/DL (12.5-16.6); IMMATURE GRANULOCYTE (%) 1.7 % (0.0-0.7); LYMPHOCYTE (%) 19.7 % (15-42); LYMPHOCYTE COUNT 0.6 K/uL (1.0-2.8); MCH 26.4 PG (29.0-34.0); MCV 87.9 FL (86-99); MONOCYTE COUNT 0.2 K/uL (0-0.8); NEUTROPHIL (%) 71.6 % (45-76); NEUTROPHIL COUNT 2.1 K/uL (1.8-6.4); RBC DIS.WIDTH-CV 17.5 % (11.8-14.6); RBC DIS.WIDTH-SD 56.6 % (39-53)
[2017-07-04 06:13] LABS: PLATELET COUNT 121 K/uL (156-360)
[2017-07-04 06:51] LABS: CHLORIDE 95 MEQ/L (99-109); CREATININE 0.8 MG/DL (0.6-1.3); GFR ESTIMATE (CALCULATED) > 59 mL/min/ (58.99-99999); GLUCOSE 250 mg/dL (70-99); POTASSIUM 4.2 MEQ/L (3.7-5.4); SODIUM 142 MEQ/L (136-147); UREA NITROGEN (BUN) 35 mg/dL (9-23)
[2017-07-04 19:15] LABS: STOOL OCCULT BLD 1ST SPECIMEN NEGATIVE
[2017-07-05 03:38] VITALS: BP 165/83
[2017-07-05 07:11] LABS: BASOPHIL (%) 0 % (0-1); EOSINOPHIL (%) 0 % (0-5); HEMATOCRIT 30.4 % (38.0-50.0); HEMOGLOBIN 9.2 G/DL (12.5-16.6); IMMATURE GRANULOCYTE (%) 3.3 % (0.0-0.7); LYMPHOCYTE (%) 18.8 % (15-42); LYMPHOCYTE COUNT 0.7 K/uL (1.0-2.8); MCH 27.2 PG (29.0-34.0); MCHC 30.3 G/DL (30.0-36.0); MCV 89.9 FL (86-99); MONOCYTE (%) 13.2 % (3-12); MONOCYTE COUNT 0.5 K/uL (0-0.8); NEUTROPHIL (%) 64.7 % (45-76); NEUTROPHIL COUNT 2.6 K/uL (1.8-6.4); RBC DIS.WIDTH-SD 59.6 % (39-53); RED BLOOD COUNT 3.38 M/uL (4.00-5.50); WHITE BLOOD COUNT 3.9 K/uL (4.1-10.2)
[2017-07-05 07:26] LABS: PLATELET COUNT 158 K/uL (156-360)
[2017-07-05 07:28] VITALS: BP 118/69
[2017-07-05 07:56] LABS: CHLORIDE 96 MEQ/L (99-109); CREATININE 0.9 MG/DL (0.6-1.3); GFR ESTIMATE (CALCULATED) > 59 mL/min/ (58.99-99999); GLUCOSE 326 mg/dL (70-99); POTASSIUM 4.2 MEQ/L (3.7-5.4); SODIUM 142 MEQ/L (136-147); UREA NITROGEN (BUN) 34 mg/dL (9-23)
[2017-07-05 12:13] VITALS: BP 168/97
[2017-07-05 16:20] VITALS: BP 102/57
[2017-07-05 23:50] VITALS: BP 136/82
[2017-07-06 07:35] LABS: BASOPHIL (%) 0.3 % (0-1); EOSINOPHIL (%) 0 % (0-5); HEMATOCRIT 31.9 % (38.0-50.0); HEMOGLOBIN 9.8 G/DL (12.5-16.6); IMMATURE GRANULOCYTE (%) 3.4 % (0.0-0.7); LYMPHOCYTE COUNT 0.7 K/uL (1.0-2.8); MCH 27.5 PG (29.0-34.0); MCHC 30.7 G/DL (30.0-36.0); MCV 89.6 FL (86-99); MONOCYTE (%) 8.7 % (3-12); MONOCYTE COUNT 0.3 K/uL (0-0.8); NEUTROPHIL (%) 64.6 % (45-76); NEUTROPHIL COUNT 2.1 K/uL (1.8-6.4); PLATELET COUNT 165 K/uL (156-360); RBC DIS.WIDTH-CV 17.8 % (11.8-14.6); RED BLOOD COUNT 3.56 M/uL (4.00-5.50); WHITE BLOOD COUNT 3.2 K/uL (4.1-10.2)
[2017-07-06 07:41] LABS: CHLORIDE 96 MEQ/L (99-109); CREATININE 0.8 MG/DL (0.6-1.3); GFR ESTIMATE (CALCULATED) > 59 mL/min/ (58.99-99999); GLUCOSE 161 mg/dL (70-99); POTASSIUM 4.8 MEQ/L (3.7-5.4); SODIUM 141 MEQ/L (136-147); UREA NITROGEN (BUN) 31 mg/dL (9-23)
[2017-07-06 07:57] VITALS: BP 135/83
[2017-07-06] MEDS ORDERED: SPIRIVA RESPIMAT4 GM IH (13:46)
[2017-07-06] MEDS ORDERED: CEFTIN500 MG PO (13:46)
[2017-07-06] MEDS ORDERED: PREDNISONE10 MG PO (13:47)
[2017-07-06] MEDS ORDERED: ELIQUIS5 MG PO (13:51)
[2017-07-06] MEDS ORDERED: LEVEMIR100 UNIT/2 SC (13:54)
[2017-07-06] MEDS ORDERED: HYDROCORTISONE28 GM TP (13:55)
[2017-07-06] MEDS ORDERED: MIRTAZAPINE7.5 MG PO (13:55)
[2017-07-06 15:48] VITALS: BP 109/55
[2017-07-07 20:33] LABS: STOOL OCCULT BLD 1ST SPECIMEN NEGATIVE
== END 2017-07-06 19:58 | DRG 189 ==
LOC: EME 11:45 → EDOF 14:55 → 4EAST 14:55 → 4WEST 14:55 → ENRESERV 14:58 → 4WEST 16:39 → ENRESERV 06-30 16:01 → 4EAST 06-30 16:48 → ENRESERV 07-03 13:20 → 5EAST 07-03 15:20
PROVIDERS: Emergency Medicine; Internal Medicine; Internal Medicine Critical Care Medicine; Student in an Organized Health Care Education/Training Program; Surgery
PROC: 5A0935Z Assistance with Respiratory Ventilation, Less than 24 Consecutive Hours (ICD-10-PCS; principal; 2017-06-29)
DX: J96.21 Acute and chronic respiratory failure with hypoxia (principal); I48.2 Chronic atrial fibrillation; I47.1 Supraventricular tachycardia; J18.9 Pneumonia, unspecified organism; E66.2 Morbid (severe) obesity with alveolar hypoventilation; Z68.45 Body mass index [BMI] 70 or greater, adult; J96.22 Acute and chronic respiratory failure with hypercapnia; J44.0 Chronic obstructive pulmonary disease with (acute) lower respiratory infection; D61.818 Other pancytopenia; N17.9 Acute kidney failure, unspecified; M79.7 Fibromyalgia; E11.22 Type 2 diabetes mellitus with diabetic chronic kidney disease; E78.5 Hyperlipidemia, unspecified; E11.65 Type 2 diabetes mellitus with hyperglycemia; I13.0 Hypertensive heart and chronic kidney disease with heart failure and stage 1 through stage 4 chronic kidney disease, or unspecified chronic kidney disease; I45.10 Unspecified right bundle-branch block; E87.2 Acidosis; N18.3 Chronic kidney disease, stage 3 (moderate); J44.1 Chronic obstructive pulmonary disease with (acute) exacerbation; J20.9 Acute bronchitis, unspecified; I27.20 Pulmonary hypertension, unspecified; I50.9 Heart failure, unspecified; I42.0 Dilated cardiomyopathy; I35.0 Nonrheumatic aortic (valve) stenosis; I25.5 Ischemic cardiomyopathy; I34.0 Nonrheumatic mitral (valve) insufficiency; I89.0 Lymphedema, not elsewhere classified; K21.9 Gastro-esophageal reflux disease without esophagitis; I25.10 Atherosclerotic heart disease of native coronary artery without angina pectoris; I48.92 Unspecified atrial flutter; Z99.81 Dependence on supplemental oxygen; Z75.1 Person awaiting admission to adequate facility elsewhere; Z87.891 Personal history of nicotine dependence; Z87.442 Personal history of urinary calculi; Z82.49 Family history of ischemic heart disease and other diseases of the circulatory system; Z79.4 Long term (current) use of insulin; I25.2 Old myocardial infarction
CPT/HCPCS: 36600; 71045; 80048; 80048 91; 80053; 81003; 82272; 82803; 82948; 83605; 83880; 84484; 85025; 85025 91; 85027; 87040; 87070; 87077; 87185; 87205; 87502; 87641; 93005; 94003; 94640; 94640 76; 94660; 94667; 94668; 94760; 94799; 97530 GP; 99202; 99281; 99285; J0696; J1100; J1644; J1815; J1940; J1956; J2920; J3010; J7512; S0028

== ENCOUNTER 2017-07-30 13:03 | Inpatient (IN) | payer OTHER ==
[~2017-07-30] VITALS: Ht 182.9 cm; Wt 177.0 kg
[2017-07-30] VITALS (11 sets, daily range): BP systolic 99–147; BP diastolic 65–80
[~2017-07-30 13:03] MED LIST changes: +EFFEXOR XR75 MG PO; +HYDROCORTISONE28 GM TP; +LASIX80 MG PO; +LYRICA75 MG PO; +MIRTAZAPINE7.5 MG PO; +PROVENTIL HFA6.7 GM IH; +SPIRIVA RESPIMAT4 GM IH; +TRADJENTA5 MG PO; -VENLAFAXINE HC150 MG PO
[2017-07-30 13:09] LABS: BASE EXCESS 8.3 mEq/L (-3 to +3); BICARBONATE 32.8 mEq/L (22-26); METHEMOGLOBIN 1.1 % (0-1.5); PCO2 44 mm Hg (35-45); PO2 51 mm Hg (80-100); pH 7.48 (7.35-7.45)
[2017-07-30 13:10] LABS: COMMENTS - BLOOD GASES A+C+; DEVICE NRBR; FI02 100 %; MECHANICAL RATE 22 resp/min; O2 FLOW 15 L/MIN; SITE RR
[2017-07-30 14:26] LABS: HEMATOCRIT 36.7 % (38.0-50.0); HEMOGLOBIN 11.6 G/DL (12.5-16.6); MCH 27.3 PG (29.0-34.0); MCHC 31.6 G/DL (30.0-36.0); MCV 86.4 FL (86-99); NRBC (%) 0.1 /100 WBC (0-0); RBC DIS.WIDTH-CV 16.9 % (11.8-14.6); RBC DIS.WIDTH-SD 52.8 % (39-53); RED BLOOD COUNT 4.25 M/uL (4.00-5.50); WHITE BLOOD COUNT 29.2 K/uL (4.1-10.2)
[2017-07-30 14:28] LABS: PLATELET COUNT 262 K/uL (156-360)
[2017-07-30 14:35] LABS: ALBUMIN 3.2 g/dL (3.2-4.8); CHLORIDE 98 mEq/L (99-109); POTASSIUM 3.7 mEq/L (3.7-5.4); SODIUM 138 mEq/L (136-147)
[2017-07-30 14:37] LABS: GLUCOSE 192 mg/dL (70-99); TOTAL PROTEIN 7.2 g/dL (6.4-8.3)
[2017-07-30 14:39] LABS: TOTAL BILIRUBIN 0.8 mg/dL (0.0-1.0)
[2017-07-30 14:41] LABS: ALKALINE PHOSPHATASE 269 IU/L (3-129); GFR ESTIMATE (CALCULATED) > 59 mL/min/ (58.99-99999)
[2017-07-30 14:42] LABS: AST (GOT) 49 IU/L (2-34); UREA NITROGEN (BUN) 20 mg/dL (9-23)
[2017-07-30 14:44] LABS: ALT (GPT) 27 IU/L (3-49)
[2017-07-30 14:47] LABS: TROP-I INTERPRETATION INDETERMINATE
[2017-07-30 14:48] LABS: INTER. NORMALIZED RATIO 1.4
[2017-07-30 14:50] LABS: PTT 28.5 SEC (25-37)
[2017-07-30] MEDS ORDERED: FERROUS SULFAT325 MG PO (15:50)
[2017-07-30] MEDS ORDERED: POTASSIUM CHLO20 ME2 PO (15:51)
[2017-07-30] MEDS ORDERED: PREDNISONE20 MG PO (15:54)
[2017-07-30] MEDS ORDERED: SENNA8.6 MG PO (15:55)
[2017-07-30] MEDS ORDERED: LEVEMIR100 UNIT/2 SC (15:59)
[2017-07-30] MEDS ORDERED: NOVOLOG 10100 UNITS/ SC ×2 (16:01→16:02)
[2017-07-30] MEDS ORDERED: TRAMADOL HCL50 MG PO (16:07)
[2017-07-30 18:36] LABS: APPEARANCE SL.HAZY ((CLEAR)); BILIRUBIN NEGATIVE; BLOOD NEGATIVE; COLOR AMBER ((YELLOW)); GLUCOSE (STRIP) NEGATIVE; KETONES NEGATIVE; LEUKOCYTES TRACE; NITRITE NEGATIVE; PROTEIN (STRIP) 30; SPECIFIC GRAVITY 1.018 (1.000-1.030); UROBILINOGEN 0.2 MG/DL (0.2-1.0)
[2017-07-30 19:02] LABS: BACTERIA RARE /HPF; EPITHELIAL CELLS RARE /HPF; HYALINE CASTS TNTC /LPF; MUCUS 3+ /LPF; RED BLOOD CELLS 0-5 /HPF (0-5); UCUL ADDED? NO; WHITE BLOOD CELLS 0-5 /HPF (0-5)
[2017-07-30 19:10] LABS: INTER. NORMALIZED RATIO 1.4
[2017-07-30 19:13] LABS: PTT 27.3 SEC (25-37)
[2017-07-30 22:21] LABS: UR CREATININE CONCENTRATION 185.9 MG/DL
[2017-07-30 22:32] LABS: TROP-I INTERPRETATION POSITIVE; TROPONIN-I 4.14 ng/mL (0.0-0.30)
[2017-07-31] VITALS (26 sets, daily range): BP systolic 101–164; BP diastolic 61–115
[2017-07-31 05:11] LABS: BASE EXCESS 4.8 mEq/L (-3 to +3); BICARBONATE 30.8 mEq/L (22-26); CARBOXY HGB 1.3 % (0-5); COMMENTS - BLOOD GASES C+A+; DEVICE VENT; FI02 60 %; MECHANICAL RATE 12 resp/min; METHEMOGLOBIN 1.7 % (0-1.5); MODE AC; PCO2 52 mm Hg (35-45); PEEP 10 CM/H20; PO2 121 mm Hg (80-100); SITE RR; TIDAL VOLUME 600 ML; TOTAL RESP RATE 16 resp/min; pH 7.38 (7.35-7.45)
[2017-07-31 07:04] LABS: BASOPHIL (%) 0.2 % (0-1); EOSINOPHIL (%) 0 % (0-5); HEMATOCRIT 30.8 % (38.0-50.0); LYMPHOCYTE (%) 9.7 % (15-42); LYMPHOCYTE COUNT 1.1 K/uL (1.0-2.8); MCH 27.3 PG (29.0-34.0); MCHC 31.2 G/DL (30.0-36.0); MCV 87.5 FL (86-99); MONOCYTE (%) 1.8 % (3-12); MONOCYTE COUNT 0.2 K/uL (0-0.8); NEUTROPHIL (%) 87.3 % (45-76); NEUTROPHIL COUNT 9.7 K/uL (1.8-6.4); RBC DIS.WIDTH-CV 16.5 % (11.8-14.6); RED BLOOD COUNT 3.52 M/uL (4.00-5.50); WHITE BLOOD COUNT 11.1 K/uL (4.1-10.2)
[2017-07-31 07:19] LABS: HEMOGLOBIN 9.6 G/DL (12.5-16.6)
[2017-07-31 07:26] LABS: CHLORIDE 102 MEQ/L (99-109); CREATININE 0.9 MG/DL (0.6-1.3); GFR ESTIMATE (CALCULATED) > 59 mL/min/ (58.99-99999); GLUCOSE 242 mg/dL (70-99); POTASSIUM 4.2 MEQ/L (3.7-5.4); SODIUM 140 MEQ/L (136-147); UREA NITROGEN (BUN) 24 mg/dL (9-23)
[2017-07-31 08:02] LABS: TROP-I INTERPRETATION POSITIVE; TROPONIN-I 2.09 ng/mL (0.0-0.30)
[2017-07-31 08:15] LABS: CREATINE KINASE 73 IU/L (1-294); TOTAL CK 73 IU/L (1-294)
[2017-07-31 08:30] LABS: PLAT.SUFFICIENCY DECREASED
[2017-07-31 08:38] LABS: CK-MB 2.5 ng/mL (0.0-4.9); CKMB RELATIVE INDEX 3.4 (0.0-3.9)
[2017-07-31 08:47] LABS: PLATELET COUNT 133 K/uL (156-360)
[2017-08-01] VITALS (23 sets, daily range): BP systolic 100–149; BP diastolic 60–92
[2017-08-01 04:59] LABS: BASOPHIL (%) 0 % (0-1); EOSINOPHIL (%) 0 % (0-5); HEMATOCRIT 30.2 % (38.0-50.0); HEMOGLOBIN 9.5 G/DL (12.5-16.6); IMMATURE GRANULOCYTE (%) 1.7 % (0.0-0.7); LYMPHOCYTE (%) 10.9 % (15-42); MCH 27.2 PG (29.0-34.0); MCHC 31.5 G/DL (30.0-36.0); MCV 86.5 FL (86-99); MONOCYTE (%) 2.6 % (3-12); MONOCYTE COUNT 0.2 K/uL (0-0.8); NEUTROPHIL (%) 84.8 % (45-76); NEUTROPHIL COUNT 7.5 K/uL (1.8-6.4); PLATELET COUNT 146 K/uL (156-360); RBC DIS.WIDTH-SD 51.3 % (39-53); RED BLOOD COUNT 3.49 M/uL (4.00-5.50); WHITE BLOOD COUNT 8.8 K/uL (4.1-10.2)
[2017-08-01 05:13] LABS: BASE EXCESS 3.1 mEq/L (-3 to +3); BICARBONATE 30.5 mEq/L (22-26); CARBOXY HGB 1.5 % (0-5); METHEMOGLOBIN 1.2 % (0-1.5)
[2017-08-01 05:14] LABS: COMMENTS - BLOOD GASES A+C+; DEVICE VENT; FI02 40 %; MECHANICAL RATE 12 resp/min; MODE AC; PCO2 62 mm Hg (35-45); PEEP 10 CM/H20; PO2 84 mm Hg (80-100); SITE LR; TIDAL VOLUME 600 ML; TOTAL RESP RATE 14 resp/min
[2017-08-01 05:43] LABS: CHLORIDE 101 mEq/L (99-109); POTASSIUM 4.2 mEq/L (3.7-5.4); SODIUM 139 mEq/L (136-147)
[2017-08-01 05:44] LABS: GLUCOSE 346 mg/dL (70-99)
[2017-08-01 05:48] LABS: GFR ESTIMATE (CALCULATED) > 59 mL/min/ (58.99-99999)
[2017-08-01 05:49] LABS: UREA NITROGEN (BUN) 31 mg/dL (9-23)
[2017-08-01 20:20] LABS: INTER. NORMALIZED RATIO 1.1
[2017-08-01 20:30] LABS: PTT 52.2 SEC (25-37)
[2017-08-02] VITALS (22 sets, daily range): BP systolic 103–160; BP diastolic 62–93
[2017-08-02 06:22] LABS: ALBUMIN 2.7 G/DL (3.2-4.8); ALKALINE PHOSPHATASE 121 IU/L (3-129); ALT (GPT) 16 IU/L (3-49); AST (GOT) 22 IU/L (2-34); CHLORIDE 103 MEQ/L (99-109); CREATININE 0.8 MG/DL (0.6-1.3); DIRECT BILIRUBIN 0.1 mg/dL (0.0-0.3); GFR ESTIMATE (CALCULATED) > 59 mL/min/ (58.99-99999); GLUCOSE 342 mg/dL (70-99); MAGNESIUM 2.4 mg/dl (1.3-2.7); PHOSPHORUS 3.3 mg/dL (2.5-4.9); POTASSIUM 4.5 MEQ/L (3.7-5.4); SODIUM 140 MEQ/L (136-147); TOTAL BILIRUBIN 0.4 MG/DL (0.0-1.0); TOTAL PROTEIN 5.4 G/DL (6.4-8.3); UREA NITROGEN (BUN) 41 mg/dL (9-23); VANCOMYCIN, TROUGH 23.8 MCG/ML (10-20)
[2017-08-03] VITALS (23 sets, daily range): BP systolic 105–184; BP diastolic 69–95
[2017-08-03 05:23] LABS: CHLORIDE 104 MEQ/L (99-109); CREATININE 0.9 MG/DL (0.6-1.3); GFR ESTIMATE (CALCULATED) > 59 mL/min/ (58.99-99999); GLUCOSE 306 mg/dL (70-99); POTASSIUM 4.2 MEQ/L (3.7-5.4); SODIUM 142 MEQ/L (136-147); UREA NITROGEN (BUN) 51 mg/dL (9-23)
[2017-08-03 05:38] LABS: HEMATOCRIT 29.6 % (38.0-50.0); MCH 26.8 PG (29.0-34.0); MCHC 30.4 G/DL (30.0-36.0); MCV 88.1 FL (86-99); NRBC (%) 0.8 /100 WBC (0-0); PLATELET COUNT 141 K/uL (156-360); RBC DIS.WIDTH-CV 16.6 % (11.8-14.6); RBC DIS.WIDTH-SD 53.5 % (39-53); RED BLOOD COUNT 3.36 M/uL (4.00-5.50); WHITE BLOOD COUNT 6.4 K/uL (4.1-10.2)
[2017-08-03 06:14] LABS: BASOPHIL (%) 0 % (0-1); EOSINOPHIL (%) 0 % (0-5); IMMATURE GRANULOCYTE (%) 4.8 % (0.0-0.7); LYMPHOCYTE (%) 11.5 % (15-42); LYMPHOCYTE COUNT 0.7 K/uL (1.0-2.8); MONOCYTE (%) 3.9 % (3-12); MONOCYTE COUNT 0.3 K/uL (0-0.8); NEUTROPHIL (%) 79.8 % (45-76); NEUTROPHIL COUNT 5.1 K/uL (1.8-6.4)
[2017-08-03 18:40] LABS: INTER. NORMALIZED RATIO 1.1
[2017-08-03 18:42] LABS: PTT 54.4 SEC (25-37)
[2017-08-04] VITALS (24 sets, daily range): BP systolic 0–192; BP diastolic 0–100
[2017-08-04 05:09] LABS: HEMATOCRIT 34.1 % (38.0-50.0); HEMOGLOBIN 10.6 G/DL (12.5-16.6); MCH 26.9 PG (29.0-34.0); MCHC 31.1 G/DL (30.0-36.0); MCV 86.5 FL (86-99); NRBC (%) 0.4 /100 WBC (0-0); PLATELET COUNT 144 K/uL (156-360); RBC DIS.WIDTH-CV 16.6 % (11.8-14.6); RBC DIS.WIDTH-SD 52.3 % (39-53); RED BLOOD COUNT 3.94 M/uL (4.00-5.50)
[2017-08-04 05:29] LABS: CHLORIDE 107 mEq/L (99-109); POTASSIUM 4.8 mEq/L (3.7-5.4); SODIUM 145 mEq/L (136-147)
[2017-08-04 05:31] LABS: GLUCOSE 214 mg/dL (70-99)
[2017-08-04 05:35] LABS: GFR ESTIMATE (CALCULATED) > 59 mL/min/ (58.99-99999)
[2017-08-04 05:36] LABS: UREA NITROGEN (BUN) 65 mg/dL (9-23)
[2017-08-04 05:42] LABS: ABS NEUTROPHIL COUNT 11.9; ANISOCYTOSIS 1+; EOSINOPHIL ABS CT 0; LYMPHOCYTES 4.3 % (15.0-45.0); MICROCYTOSIS 1+; MONOCYTES 3.5 % (0-9.0); MYELOCYTES 0.9 %; OVALOCYTES 1+; PLAT.SUFFICIENCY ADEQUATE; POIKILOCYTOSIS 1+; POLYCHROMASIA 2+; SEG.NEUTROPHILS 91.3 % (46.0-76.0)
[2017-08-05] VITALS (23 sets, daily range): BP systolic 0–208; BP diastolic 0–119
[2017-08-05 06:12] LABS: HEMATOCRIT 34.9 % (38.0-50.0); HEMOGLOBIN 10.2 G/DL (12.5-16.6); MCH 26.4 PG (29.0-34.0); MCHC 29.2 G/DL (30.0-36.0); MCV 90.2 FL (86-99); NRBC (%) 0.4 /100 WBC (0-0); PLATELET COUNT 124 K/uL (156-360); RBC DIS.WIDTH-SD 55.7 % (39-53); RED BLOOD COUNT 3.87 M/uL (4.00-5.50); WHITE BLOOD COUNT 7.4 K/uL (4.1-10.2)
[2017-08-05 06:40] LABS: CHLORIDE 113 MEQ/L (99-109); CREATININE 0.8 MG/DL (0.6-1.3); GFR ESTIMATE (CALCULATED) > 59 mL/min/ (58.99-99999); GLUCOSE 153 mg/dL (70-99); POTASSIUM 5.3 MEQ/L (3.7-5.4); SODIUM 151 MEQ/L (136-147); UREA NITROGEN (BUN) 69 mg/dL (9-23)
[2017-08-05 06:46] LABS: ABS NEUTROPHIL COUNT 6.5; ANISOCYTOSIS 2+; ATYPICAL LYMPHOCYTE 3.5 %; BAND NEUTROPHILS 3.5 % (0-8.0); BASOPH.STIPPLING 1+; EOSINOPHIL ABS CT 0; LYMPHOCYTES 4.3 % (15.0-45.0); MACROCYTES 1+; MONOCYTES 4.3 % (0-9.0); OVALOCYTES 1+; PLAT.SUFFICIENCY DECREASED; POIKILOCYTOSIS 1+; POLYCHROMASIA 1+; SEG.NEUTROPHILS 84.4 % (46.0-76.0); TEAR DROP CELLS 1+
[2017-08-05 17:02] LABS: INTER. NORMALIZED RATIO 1.2
[2017-08-05 17:04] LABS: PTT 102.1 SEC (25-37)
[2017-08-05 17:50] LABS: CHLORIDE 111 MEQ/L (99-109); CREATININE 0.9 MG/DL (0.6-1.3); GFR ESTIMATE (CALCULATED) > 59 mL/min/ (58.99-99999); GLUCOSE 249 mg/dL (70-99); SODIUM 148 MEQ/L (136-147); UREA NITROGEN (BUN) 71 mg/dL (9-23)
[2017-08-06] VITALS (28 sets, daily range): BP systolic 116–205; BP diastolic 61–181
[2017-08-06 01:08] LABS: INTER. NORMALIZED RATIO 1.2
[2017-08-06 01:11] LABS: PTT 82.1 SEC (25-37)
[2017-08-06 06:12] LABS: HEMATOCRIT 34.2 % (38.0-50.0); HEMOGLOBIN 9.9 G/DL (12.5-16.6); MCH 25.8 PG (29.0-34.0); MCHC 28.9 G/DL (30.0-36.0); MCV 89.3 FL (86-99); NRBC (%) 0.3 /100 WBC (0-0); PLATELET COUNT 124 K/uL (156-360); RBC DIS.WIDTH-CV 16.8 % (11.8-14.6); RBC DIS.WIDTH-SD 54.5 % (39-53); RED BLOOD COUNT 3.83 M/uL (4.00-5.50); WHITE BLOOD COUNT 7.9 K/uL (4.1-10.2)
[2017-08-06 07:36] LABS: CHLORIDE 116 MEQ/L (99-109); CREATININE 0.8 MG/DL (0.6-1.3); GFR ESTIMATE (CALCULATED) > 59 mL/min/ (58.99-99999); GLUCOSE 238 mg/dL (70-99); POTASSIUM 5.3 MEQ/L (3.7-5.4); SODIUM 154 MEQ/L (136-147); UREA NITROGEN (BUN) 70 mg/dL (9-23)
[2017-08-06 17:27] LABS: BASE EXCESS 7.1 mEq/L (-3 to +3); CARBOXY HGB 1.8 % (0-5); METHEMOGLOBIN 1.5 % (0-1.5); PO2 78 mm Hg (80-100)
[2017-08-06 17:28] LABS: COMMENTS - BLOOD GASES A+C+; DEVICE 840VENT; FI02 40 %; PCO2 52 mm Hg (35-45); PEEP 5 CM/H20; SITE RR; TOTAL RESP RATE 20 resp/min; pH 7.41 (7.35-7.45)
[2017-08-06 22:48] LABS: C DIFF TOXIN NEGATIVE (NEGATIVE)
[2017-08-07] VITALS (27 sets, daily range): BP systolic 0–194; BP diastolic 0–124
[2017-08-07 06:46] LABS: CHLORIDE 114 MEQ/L (99-109); CREATININE 0.6 MG/DL (0.6-1.3); GFR ESTIMATE (CALCULATED) > 59 mL/min/ (58.99-99999); POTASSIUM 5.1 MEQ/L (3.7-5.4); SODIUM 154 MEQ/L (136-147); UREA NITROGEN (BUN) 58 mg/dL (9-23)
[2017-08-07 06:51] LABS: GLUCOSE 110 mg/dL (70-99)
[2017-08-08] VITALS (21 sets, daily range): BP systolic 124–171; BP diastolic 56–94
[2017-08-08 05:30] LABS: HEMATOCRIT 28.7 % (38.0-50.0); HEMOGLOBIN 8.7 G/DL (12.5-16.6); MCH 26.9 PG (29.0-34.0); MCHC 30.3 G/DL (30.0-36.0); MCV 88.9 FL (86-99); NRBC (%) 0.2 /100 WBC (0-0); PLATELET COUNT 96 K/uL (156-360); RBC DIS.WIDTH-CV 17.1 % (11.8-14.6); RED BLOOD COUNT 3.23 M/uL (4.00-5.50); WHITE BLOOD COUNT 10.4 K/uL (4.1-10.2)
[2017-08-09] VITALS (15 sets, daily range): BP systolic 135–182; BP diastolic 65–101
[2017-08-09 09:00] LABS: BASOPHIL (%) 0.1 % (0-1); EOSINOPHIL (%) 0 % (0-5); HEMATOCRIT 25.2 % (38.0-50.0); HEMOGLOBIN 7.5 G/DL (12.5-16.6); IMMATURE GRANULOCYTE (%) 3.7 % (0.0-0.7); LYMPHOCYTE (%) 16.5 % (15-42); LYMPHOCYTE COUNT 2.3 K/uL (1.0-2.8); MCHC 29.8 G/DL (30.0-36.0); MCV 87.5 FL (86-99); MONOCYTE (%) 7.7 % (3-12); MONOCYTE COUNT 1.1 K/uL (0-0.8); NEUTROPHIL COUNT 10.2 K/uL (1.8-6.4); NRBC (%) 0.2 /100 WBC (0-0); PLATELET COUNT 101 K/uL (156-360); RBC DIS.WIDTH-CV 16.7 % (11.8-14.6); RBC DIS.WIDTH-SD 53.4 % (39-53); RED BLOOD COUNT 2.88 M/uL (4.00-5.50); WHITE BLOOD COUNT 14.1 K/uL (4.1-10.2)
[2017-08-09 10:52] LABS: CHLORIDE 118 MEQ/L (99-109); CREATININE 0.8 MG/DL (0.6-1.3); GFR ESTIMATE (CALCULATED) > 59 mL/min/ (58.99-99999); GLUCOSE 161 mg/dL (70-99); POTASSIUM 5.4 MEQ/L (3.7-5.4); SODIUM 155 MEQ/L (136-147); UREA NITROGEN (BUN) 53 mg/dL (9-23)
[2017-08-10] VITALS (31 sets, daily range): BP systolic 96–162; BP diastolic 44–98
[2017-08-10 04:51] LABS: HEMATOCRIT 21.9 % (38.0-50.0); HEMOGLOBIN 6.8 G/DL (12.5-16.6); MCH 27.1 PG (29.0-34.0); MCHC 31.1 G/DL (30.0-36.0); MCV 87.3 FL (86-99); NRBC (%) 0.7 /100 WBC (0-0); PLATELET COUNT 105 K/uL (156-360); RBC DIS.WIDTH-CV 16.5 % (11.8-14.6); RBC DIS.WIDTH-SD 52.1 % (39-53); RED BLOOD COUNT 2.51 M/uL (4.00-5.50); WHITE BLOOD COUNT 20.7 K/uL (4.1-10.2)
[2017-08-10 13:51] LABS: HEMATOCRIT 21.1 % (38.0-50.0); HEMOGLOBIN 6.5 G/DL (12.5-16.6); MCH 27.3 PG (29.0-34.0); MCHC 30.8 G/DL (30.0-36.0); MCV 88.7 FL (86-99); NRBC (%) 1.1 /100 WBC (0-0); PLATELET COUNT 85 K/uL (156-360); RBC DIS.WIDTH-CV 16.1 % (11.8-14.6); RBC DIS.WIDTH-SD 51.6 % (39-53); RED BLOOD COUNT 2.38 M/uL (4.00-5.50); WHITE BLOOD COUNT 17.9 K/uL (4.1-10.2)
[2017-08-10 14:05] LABS: ALBUMIN 2.6 G/DL (3.2-4.8); ALKALINE PHOSPHATASE 69 IU/L (3-129); ALT (GPT) 25 IU/L (3-49); AST (GOT) 24 IU/L (2-34); CHLORIDE 114 MEQ/L (99-109); GFR ESTIMATE (CALCULATED) > 59 mL/min/ (58.99-99999); MAGNESIUM 2.6 mg/dl (1.3-2.7); POTASSIUM 5.6 MEQ/L (3.7-5.4); TOTAL BILIRUBIN 0.8 MG/DL (0.0-1.0); TOTAL PROTEIN 4.9 G/DL (6.4-8.3); UREA NITROGEN (BUN) 69 mg/dL (9-23)
[2017-08-10 14:09] LABS: GLUCOSE 313 mg/dL (70-99); PHOSPHORUS 5.3 mg/dL (2.5-4.9); SODIUM 146 MEQ/L (136-147)
[2017-08-10 14:23] LABS: BASOPHIL (%) 0.1 % (0-1); EOSINOPHIL (%) 0.1 % (0-5); IMMATURE GRANULOCYTE (%) 4.8 % (0.0-0.7); LYMPHOCYTE (%) 11.8 % (15-42); LYMPHOCYTE COUNT 2.1 K/uL (1.0-2.8); MONOCYTE COUNT 0.9 K/uL (0-0.8); NEUTROPHIL (%) 78.2 % (45-76)
[2017-08-10 18:06] LABS: CREATINE KINASE 395 IU/L (1-294)
[2017-08-10 18:14] LABS: ERTH.SED.RATE 12 MM/HR (0-20)
[2017-08-11] VITALS (20 sets, daily range): BP systolic 98–162; BP diastolic 53–92
[2017-08-11 12:06] LABS: BASOPHIL (%) 0.1 % (0-1); EOSINOPHIL (%) 0 % (0-5); HEMATOCRIT 25.9 % (38.0-50.0); HEMOGLOBIN 8.1 G/DL (12.5-16.6); IMMATURE GRANULOCYTE (%) 4.9 % (0.0-0.7); LYMPHOCYTE (%) 11.4 % (15-42); MCH 26.9 PG (29.0-34.0); MCHC 31.3 G/DL (30.0-36.0); MONOCYTE (%) 4.5 % (3-12); MONOCYTE COUNT 0.8 K/uL (0-0.8); NEUTROPHIL (%) 79.1 % (45-76); NEUTROPHIL COUNT 13.8 K/uL (1.8-6.4); NRBC (%) 1.4 /100 WBC (0-0); PLATELET COUNT 69 K/uL (156-360); RBC DIS.WIDTH-CV 17.2 % (11.8-14.6); RBC DIS.WIDTH-SD 53.9 % (39-53); WHITE BLOOD COUNT 17.5 K/uL (4.1-10.2)
[2017-08-11 12:11] LABS: RED BLOOD COUNT 3.01 M/uL (4.00-5.50)
[2017-08-11 12:53] LABS: ALBUMIN 2.7 G/DL (3.2-4.8); ALKALINE PHOSPHATASE 82 IU/L (3-129); ALT (GPT) 27 IU/L (3-49); AST (GOT) 26 IU/L (2-34); CHLORIDE 114 MEQ/L (99-109); GFR ESTIMATE (CALCULATED) > 59 mL/min/ (58.99-99999); GLUCOSE 239 mg/dL (70-99); MAGNESIUM 2.5 mg/dl (1.3-2.7); PHOSPHORUS 4.3 mg/dL (2.5-4.9); POTASSIUM 4.7 MEQ/L (3.7-5.4); SODIUM 149 MEQ/L (136-147); TOTAL PROTEIN 5.3 G/DL (6.4-8.3); UREA NITROGEN (BUN) 62 mg/dL (9-23)
[2017-08-11 12:54] LABS: TOTAL BILIRUBIN 1.1 MG/DL (0.0-1.0)
[2017-08-12] VITALS (17 sets, daily range): BP systolic 102–155; BP diastolic 66–86
[2017-08-12 07:44] LABS: BASOPHIL (%) 0.1 % (0-1); EOSINOPHIL (%) 0 % (0-5); HEMATOCRIT 24.5 % (38.0-50.0); IMMATURE GRANULOCYTE (%) 4.4 % (0.0-0.7); LYMPHOCYTE (%) 12.5 % (15-42); LYMPHOCYTE COUNT 2.1 K/uL (1.0-2.8); MCH 28.1 PG (29.0-34.0); MCHC 32.7 G/DL (30.0-36.0); MONOCYTE (%) 4.5 % (3-12); MONOCYTE COUNT 0.8 K/uL (0-0.8); NEUTROPHIL (%) 78.5 % (45-76); NEUTROPHIL COUNT 13.3 K/uL (1.8-6.4); NRBC (%) 0.8 /100 WBC (0-0); PLATELET COUNT 61 K/uL (156-360); RBC DIS.WIDTH-SD 51.8 % (39-53); RED BLOOD COUNT 2.85 M/uL (4.00-5.50)
[2017-08-12 07:49] LABS: ALBUMIN 2.7 G/DL (3.2-4.8); ALKALINE PHOSPHATASE 75 IU/L (3-129); ALT (GPT) 27 IU/L (3-49); AST (GOT) 27 IU/L (2-34); CHLORIDE 110 MEQ/L (99-109); CREATININE 0.8 MG/DL (0.6-1.3); GFR ESTIMATE (CALCULATED) > 59 mL/min/ (58.99-99999); GLUCOSE 161 mg/dL (70-99); MAGNESIUM 2.3 mg/dl (1.3-2.7); PHOSPHORUS 3.7 mg/dL (2.5-4.9); POTASSIUM 4.5 MEQ/L (3.7-5.4); SODIUM 145 MEQ/L (136-147); TOTAL PROTEIN 5.3 G/DL (6.4-8.3); UREA NITROGEN (BUN) 56 mg/dL (9-23)
[2017-08-12 07:58] LABS: INTER. NORMALIZED RATIO 1.3
[2017-08-12 08:09] LABS: ALBUMIN 2.6 G/DL (3.4-5.0); GLOBULINS 2.7 G/DL (2.3-3.5); TOTAL PROTEIN 5.3 G/DL (6.4-8.2)
[2017-08-12 09:00] LABS: FERRITIN 72 NG/ML (22-322)
[2017-08-14 14:03] LABS: ALBUMIN 2.74 G/DL (3.6-4.9); ALPHA-1 GLOBULIN 0.35 G/DL (0.15-0.40); ALPHA-2 GLOBULIN 0.47 G/DL (0.45-0.85); BETA-GLOBULIN 0.56 G/DL (0.65-1.15); GAMMA-GLOBULIN 1.18 G/DL (0.60-1.35)
== END 2017-08-13 00:59 | disposition short-term general hospital (02) | DRG 870 ==
LOC: EME 13:03 → 4WEST 15:30 → EDOF 15:30 → 4WEST 15:30 → ENRESERV 15:32 → 4WEST 16:57
PROVIDERS: Emergency Medicine; Internal Medicine; Internal Medicine Critical Care Medicine; Specialist; Surgery
PROC: 5A1955Z Respiratory Ventilation, Greater than 96 Consecutive Hours (ICD-10-PCS; principal; 2017-07-30)
PROC: 0BH17EZ Insertion of Endotracheal Airway into Trachea, Via Natural or Artificial Opening (ICD-10-PCS; principal; 2017-07-30)
PROC: 02HV33Z Insertion of Infusion Device into Superior Vena Cava, Percutaneous Approach (ICD-10-PCS; 2017-07-30)
PROC: 5A09357 Assistance with Respiratory Ventilation, Less than 24 Consecutive Hours, Continuous Positive Airway Pressure (ICD-10-PCS; 2017-08-06)
DX: A41.9 Sepsis, unspecified organism (principal); R65.21 Severe sepsis with septic shock; J96.21 Acute and chronic respiratory failure with hypoxia; J96.22 Acute and chronic respiratory failure with hypercapnia; J15.4 Pneumonia due to other streptococci; J44.1 Chronic obstructive pulmonary disease with (acute) exacerbation; J44.0 Chronic obstructive pulmonary disease with (acute) lower respiratory infection; G72.81 Critical illness myopathy; G62.81 Critical illness polyneuropathy; G82.50 Quadriplegia, unspecified; I21.4 Non-ST elevation (NSTEMI) myocardial infarction; D64.9 Anemia, unspecified; N17.9 Acute kidney failure, unspecified; E87.0 Hyperosmolality and hypernatremia; E87.2 Acidosis; E87.5 Hyperkalemia; E11.22 Type 2 diabetes mellitus with diabetic chronic kidney disease; I13.0 Hypertensive heart and chronic kidney disease with heart failure and stage 1 through stage 4 chronic kidney disease, or unspecified chronic kidney disease; I50.9 Heart failure, unspecified; N18.3 Chronic kidney disease, stage 3 (moderate); Y95 Nosocomial condition; E11.51 Type 2 diabetes mellitus with diabetic peripheral angiopathy without gangrene; E11.65 Type 2 diabetes mellitus with hyperglycemia; E66.2 Morbid (severe) obesity with alveolar hypoventilation; K92.2 Gastrointestinal hemorrhage, unspecified; Z68.43 Body mass index [BMI] 50.0-59.9, adult; I47.1 Supraventricular tachycardia; I47.2 Ventricular tachycardia; I48.0 Paroxysmal atrial fibrillation; I48.2 Chronic atrial fibrillation; I48.92 Unspecified atrial flutter; D69.6 Thrombocytopenia, unspecified; I25.10 Atherosclerotic heart disease of native coronary artery without angina pectoris; I25.5 Ischemic cardiomyopathy; I08.0 Rheumatic disorders of both mitral and aortic valves; I42.0 Dilated cardiomyopathy; I27.20 Pulmonary hypertension, unspecified; I45.10 Unspecified right bundle-branch block; I87.2 Venous insufficiency (chronic) (peripheral); E78.5 Hyperlipidemia, unspecified; I89.0 Lymphedema, not elsewhere classified; K21.9 Gastro-esophageal reflux disease without esophagitis; M79.7 Fibromyalgia; R13.10 Dysphagia, unspecified; F32.9 Major depressive disorder, single episode, unspecified; M25.569 Pain in unspecified knee; F41.9 Anxiety disorder, unspecified; Z87.891 Personal history of nicotine dependence; Z79.82 Long term (current) use of aspirin
CPT/HCPCS: 36600; 70450; 71045; 72125; 76604; 76705; 80047; 80048; 80048 91; 80053; 80076; 80162; 80202; 81003; 82140; 82436; 82550; 82550 91; 82553; 82570; 82728; 82803; 82948; 83605; 83735; 83880; 83935; 84100; 84133; 84165; 84300; 84466; 84484; 85025; 85027; 85610; 85652; 85730; 86850; 86900; 86901; 86920; 87040; 87070; 87077; 87181; 87186; 87205; 87449; 87493; 87641; 87801; 92526 GN; 92610 GN; 93005; 94002; 94003; 94640; 94640 76; 94660; 94799; 99202; 99281; 99285; C1751; C9113; J0171; J0282; J0330; J0360; J0456; J0692; J1100; J1160; J1815; J1940; J2250; J2270; J2543; J2704; J2920; J2930; J3010; J3243; J3370; J7030; J7050; J7070; J7644; P9016; P9047